=== PATIENT | female | born 1975 | race Caucasian/White ===

== ENCOUNTER 2020-10-11 14:45 | Emergency (ER) | payer MEDICARE, MEDICAID, SELFPAY ==
--- NOTE | 2020-10-11 07:31 | ECG_ITS ---
Test Reason : CHEST PAIN Blood Pressure : / mmHG Vent. Rate : 072 BPM Atrial Rate : 072 BPM P-R Int : 132 ms QRS Dur : 086 ms QT Int : 380 ms P-R-T Axes : 055 070 024 degrees QTc Int : 416 ms Normal sinus rhythm RSR' or QR pattern in V1 suggests right ventricular conduction delay Otherwise normal ECG No significant changes seen Referred By: Vanessa Marie Electronically Signed By:NGA PERALES MD
[2020-10-11 14:56] VITALS: BP 105/70; BP 108/71; PULSE 77; PULSE 99; RESP 18; TEMP 36.7; O2SAT 100; O2SAT 99; BMI 26.6
[2020-10-11 15:44] VITALS: BP 105/64; PULSE 87; RESP 18; TEMP 36.8; O2SAT 96
--- NOTE | 2020-10-11 16:03 | ED_ITS ---
HPI - Chest Pain General Chief Complaint: Chest Pain Stated Complaint: chest pain Time Seen by Provider: 10/11/20 16:02 Source: patient Mode of arrival: ambulatory Limitations: no limitations History of Present Illness MD complaint: chest pain and other (L arm tingling and weakness) Onset (ago): hour(s) (started at 940AM today) Timing of current episode: constant Prior episodes: No Onset: during rest Pain location: left chest Pain radiation: left arm Severity: moderate Quality: aching and heaviness Relieving factors: nothing Exacerbating factors: nothing Associated symptoms: other (L arm weak and tingling at the same time) Treatment prior to arrival: other (went to [facility] and referred here) Related Data Home Medications Medication Instructions Recorded Confirmed ibuprofen 800 mg tablet 800 mg PO TID 09/27/20 09/27/20 ondansetron 4 mg disintegrating 4 mg PO DAILY tab 09/27/20 09/27/20 tablet sumatriptan succinate 50 mg tablet 50 mg PO Q2-4H PRN 09/27/20 09/27/20 tizanidine 4 mg capsule 4 mg PO BID PRN 09/27/20 09/27/20 Previous Rx's Medication Instructions Recorded esomeprazole magnesium 20 mg 20 mg PO DAILY 90 Days #90 cap 09/27/20 capsule,delayed release gabapentin 100 mg capsule 200 mg PO BEDTIME 30 Days #60 cap 09/27/20 cyclobenzaprine 10 mg PO TID PRN #14 tab 10/11/20 Allergies Allergy/AdvReac Type Severity Reaction Status Date / Time hydrocodone [HYDROCODONE] Allergy Unknown SEVERE Verified 10/11/20 14:56 HEADACHE oxycodone [OXYCODONE] Allergy Unknown SEVERE Verified 10/11/20 14:56 HEADACHE latex [LATEX] AdvReac Mild RASH Verified 10/11/20 14:56 morphine [MORPHINE] AdvReac Unknown HEADACHES Verified 10/11/20 14:56 Latex with powder Allergy Unknown Unknown Uncoded 09/27/20 10:18 Review of Systems Review of Systems: Constitutional : No Weight loss, No Fever, No Chills ENT/Mouth : No sore throat, No Rhinorrhea Eyes: No Eye Pain, No Swelling Cardiovascular : pos Chest Pain, no SOB, no Dyspnea on Exertion, No Orthopnea, No Edema, No Palpitations Respiratory : No Cough, No Sputum Gastrointestinal : no Nausea, No Vomiting, No Diarrhea, No abdominal Pain, No Hematochezia, No Melena Genitourinary : No Dysuria, No Urinary Frequency Musculoskeletal : No joint pain, No Myalgias, No Joint Swelling Skin : No Skin Lesions, No rash Neuro : pos Weakness, pos Numbness, No Dizziness, No Headache Psych : No Anxiety/Panic, No Depression Heme/Lymph: No Bruising, No Lymphadenopathy Endocrine : No Polyuria, No Polydipsia All other systems reviewed and are negative [facility] Past Medical History Attestation statement: The following information was validated with the patient. Medical History Anxiety and depression Asthma Cervical neck pain with evidence of disc disease Constipation Endometriosis Iliotibial band syndrome affecting left lower leg Left fibular fracture Left tibial fracture Lumbago Migraines Right ovarian cyst Surgical History History of bunionectomy History of section History of eye surgery History of fracture of leg History of oophorectomy, unilateral History of surgery History of tendonitis Hx of cholecystectomy Family History Family History Father No problems noted. Mother No problems noted. Brother No problems noted. Brother No problems noted. Sister No problems noted. Maternal Grandfather No problems noted. Maternal Grandmother No problems noted. Paternal Grandfather No problems noted. Paternal Grandmother No problems noted. Daughter No problems noted. Son No problems noted. Social History Social History Alcohol intake: never Smoking Status: Never smoker Use of substances other than those prescribed or required for medical reasons: No Advance Directives: No Advance Directives Information Provided: Yes Physical Exam Vital Signs: Vital Signs: Last Vital Signs Temp 98.2 F 10/11/20 19:59 Pulse 100 10/11/20 19:59 Resp 12 10/11/20 19:59 BP 116/64 10/11/20 19:59 Pulse Ox 100 10/11/20 19:59 Body Mass Index 26.6 Appearance: Alert. Oriented X3. No acute distress. Eyes: Pupils equal, round and reactive to light. ENT: Pharynx normal. Neck: Normal inspection. Neck supple. CVS: Normal heart rate and rhythm. Pulses normal. Respiratory: No respiratory distress. Breath sounds normal. Abdomen: Soft and nontender. Skin: Skin warm and dry. Normal skin color. Normal skin turgor. Extremities: No lower extremity edema. No calf ttp Neuro: Oriented X 3. LUE 4/5. No sensory deficit. NIH Stroke Scale Internal: Initial- Upon Arrival Time: 16:05 Level of Consciousness: Alert Best Gaze: Normal Visual: No visual loss Facial Palsy: Normal Motor Arm (Right): No drift Motor Arm (Left): Drift Motor Leg (Right): No drift Motor Leg (Left): No drift Limb Ataxia: Absent Sensory: Normal Best Language: No aphasia Dysarthia: Normal Extinction and Inattention: No abnormality Course Course Course Narrative: no acute findings given complaint could be pain related but does have some weakness in LUE at this time MRI ordered to r/o stroke, LUE seems stronger at this time on repeat exam LUE equal c/o pain in L shoulder area - likely pain related negative MRI stable for DC at this time MDM - Chest Pain MDM Narrative Medical decision making narrative: 45 yo female with no sig PMH here with L sided chest pain and L arm weakness and numbness since 940AM - the patient comes in with delayed presentation she does have 4+/5 weakness in LUE will need labs, ddimer, CTA of chest for dissection and CTA of head/neck given LUE weakness, dispo per results and findings. Lab Data Result diagrams: 10/11/20 16:00 10/11/20 16:00 Labs: Lab Results 10/11/20 10/11/20 10/11/20 Range/Units 16:00 16:00 16:00 WBC 5.7 (4.8-10.8) X10*3/uL RBC 4.63 (4.20-5.50) X10*6/uL Hgb 13.7 (12.0-16.0) g/dl Hct 41.2 (37-47) % MCV 89.0 (80-98) fL MCH 29.6 (27.0-33.0) pg MCHC 33.3 (31.0-35.0) g/dl RDW 13.7 (11.0-16.0) % Plt Count 283 (160-400) X10*3/uL MPV 9.5 (9.4-12.3) fL Immature Gran % (Auto) 0.3 (0.0-0.4) % Neut % (Auto) 57.7 (45-73) % Lymph % (Auto) 32.6 (20-40) % [place] % (Auto) 6.8 (2-11) % Eos % (Auto) 1.6 (0-4) % Baso % (Auto) 1.0 (0-2) % Lymph # (Auto) 1.9 (1.2-4.9) X10*3/uL [place] # (Auto) 0.4 (0.1-1.2) X10*3/uL Eos # (Auto) 0.1 (0.0-0.4) X10*3/uL Baso # (Auto) 0.1 (0.0-0.2) X10*3/uL Abs Immat Gran (auto) 0.02 (0.00-0.03) X10*3/uL Absolute Neuts (auto) 3.3 (2.0-8.3) X10*3/uL Absolute Nucleated RBC 0.000 (0.0-0.012) X10*3/uL Nucleated RBC % (auto) 0.0 (0.0-0.2) /100WBC PT 10.7 L (10.8-13.0) SEC INR 0.9 (0.9-1.1) APTT 32.6 (24.1-38.0) SEC D-Dimer < 200 NG/ML Sodium 139 (135-145) mmol/L Potassium 3.9 (3.3-5.1) mmol/l Chloride 105 (96-108) mmol/L Carbon Dioxide 27 (22-29) mmol/L Anion Gap 11 L (12-20) BUN 11 (9-16) mg/dL Creatinine 0.81 (0.5-1.4) mg/dL Estim Creat Clear Calc 87.5 Estimated GFR > 60 Random Glucose 102 (60-115) mg/dL Calcium 8.9 (8.4-10.2) mg/dL Magnesium 2.0 (1.6-2.6) mg/dL Total Bilirubin 0.3 (0.0-1.0) mg/dL Direct Bilirubin < 0.2 (0.0-0.5) mg/dL AST 20 (5-31) U/L ALT 33 H (0-31) U/L Alkaline Phosphatase 50 (39-117) U/L Troponin I High Sens (<3.5-17.0) ng/L Total Protein 6.7 (6.5-8.0) g/dL Albumin 4.0 (3.5-5.0) g/dL 10/11/20 10/11/20 Range/Units 16:00 16:00 WBC (4.8-10.8) X10*3/uL RBC (4.20-5.50) X10*6/uL Hgb (12.0-16.0) g/dl Hct (37-47) % MCV (80-98) fL MCH (27.0-33.0) pg MCHC (31.0-35.0) g/dl RDW (11.0-16.0) % Plt Count (160-400) X10*3/uL MPV (9.4-12.3) fL Immature Gran % (Auto) (0.0-0.4) % Neut % (Auto) (45-73) % Lymph % (Auto) (20-40) % [place] % (Auto) (2-11) % Eos % (Auto) (0-4) % Baso % (Auto) (0-2) % Lymph # (Auto) (1.2-4.9) X10*3/uL [place] # (Auto) (0.1-1.2) X10*3/uL Eos # (Auto) (0.0-0.4) X10*3/uL Baso # (Auto) (0.0-0.2) X10*3/uL Abs Immat Gran (auto) (0.00-0.03) X10*3/uL Absolute Neuts (auto) (2.0-8.3) X10*3/uL Absolute Nucleated RBC (0.0-0.012) X10*3/uL Nucleated RBC % (auto) (0.0-0.2) /100WBC PT Cancelled (10.8-13.0) SEC INR Cancelled (0.9-1.1) APTT Cancelled (24.1-38.0) SEC D-Dimer NG/ML Sodium (135-145) mmol/L Potassium (3.3-5.1) mmol/l Chloride (96-108) mmol/L Carbon Dioxide (22-29) mmol/L Anion Gap (12-20) BUN (9-16) mg/dL Creatinine (0.5-1.4) mg/dL Estim Creat Clear Calc Estimated GFR Random Glucose (60-115) mg/dL Calcium (8.4-10.2) mg/dL Magnesium (1.6-2.6) mg/dL Total Bilirubin (0.0-1.0) mg/dL Direct Bilirubin (0.0-0.5) mg/dL AST (5-31) U/L ALT (0-31) U/L Alkaline Phosphatase (39-117) U/L Troponin I High Sens < 3.5 (<3.5-17.0) ng/L Total Protein (6.5-8.0) g/dL Albumin (3.5-5.0) g/dL ECG Data ECG #1: Attestation: I personally reviewed and interpreted this ECG as follows: ECG interpretation date: 10/11/20 ECG interpretation time: 16:12 Interpretation: Rate: 72 Rhythm: NSR [place]: normal Normal P waves. Normal VON. Normal QRS complex. ST T wave : normal qTC: normal prior studies: no acute ischemia The study has been interpreted contemporaneously by me. . Discharge Plan Discharge Clinical Impression: Arm paresthesia, left, Chest pain Patient Disposition: Home, Self-Care Instructions: Chest Pain (ED), Paresthesia (ED) Additional Instructions: return to ED for any worsening symptoms or concerns MRI report: No acute intracranial abnormality. No infarct, hemorrhage, or mass is seen. 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 Prescriptions: New cyclobenzaprine 10 mg tablet 10 mg PO TID PRN (Reason: muscle spasm) Qty: 14 RF: 0 No Action ibuprofen 800 mg tablet 800 mg PO TID RF: 0 tizanidine 4 mg capsule 4 mg PO BID PRNRF: 0 ondansetron 4 mg tablet,disintegrating 4 mg PO DAILY RF: 0 sumatriptan succinate 50 mg tablet 50 mg PO Q2-4H PRNRF: 0 gabapentin 100 mg capsule 200 mg PO BEDTIME 30 Days Qty: 60 RF: 0 esomeprazole magnesium 20 mg capsule,delayed release(DR/EC) 20 mg PO DAILY 90 Days Qty: 90 RF: 0 Referrals: Ameya Enamorado FNP-BC [Primary Care Provider] - 2 days Interventions: ED Discharge Assessment Last Done: 10/11/20 20:17 Discharge Date/Time: 10/11/20 20:20
--- NOTE | 2020-10-11 16:07 | CT_ITS ---
EXAMINATION: CT ANGIOGRAM NECK WITH CONTRAST CT ANGIOGRAM BRAIN WITH CONTRAST CLINICAL INFORMATION: Left-sided upper extremity weakness and chest pain. COMPARISON: Brain MRI 03/29/2016. TECHNIQUE: An initial noncontrast head CT was performed. Test bolus sequences followed by intravenous administration 100 mL of Omnipaque 350. Helical imaging was performed in the axial plane from the thoracic inlet to the skull vertex. Delayed postcontrast imaging of the head was also performed. The data was processed at the hyperbaric technologist workstation for generation of MIP sequences. Angled MIPs and volume rendered reformatted images were also generated at an offline 3D workstation. Stenoses are assessed in accordance with NASCET criteria unless otherwise indicated. This CT examination was performed using dose optimization techniques as appropriate, variously including the following: *Automated exposure control *Adjustment of mA and/or kV according to patient size (this includes techniques or standardized protocols for targeted exams where dose is matched to indication/reason for exam; i.e. extremities or head) *Use of iterative reconstruction technique DLP: 2242 mGy-cm FINDINGS: Head CT: There is no intracranial hemorrhage, extra-axial collection, mass effect, or territorial infarction. The ventricles are normal in size and configuration without evidence of hydrocephalus. On the delayed postcontrast images no enhancing mass is seen. The dural venous sinuses demonstrate normal opacification. 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 There is chronic deformity of the left zygoma. There is fixation hardware along the left zygomaticofrontal suture and left zygomaticomaxillary buttress. Neck CTA: The aortic arch is patent. The great vessel origins are patent. The bilateral common and internal carotid arteries are patent the bilateral vertebral arteries are codominant and patent. Head CTA: No proximal vessel occlusion is seen within the intracranial arterial circulation. There is tortuosity and ectasia of the A3 RASHIDA segments with associated vascular calcifications but without high-grade narrowing. The MCAs appear normal and symmetric. The bilateral vertebral arteries and basilar artery are patent. The plant safety engineer are patent. No definite aneurysm is seen. Non-vascular findings: No consolidation is seen within the upper lungs. The spine is intact. No significant neck adenopathy is seen. CT/CT angio head neck IMPRESSION: CT head: No intracranial hemorrhage or large acute infarction. 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 CTA neck: No stenosis in the major arteries of the neck. CTA head: No large vessel occlusion or high-grade stenosis within the intracranial circulation.
[2020-10-11] MEDS: 0.9 % Sodium Chloride 1,000 ML 999 ML IVCONT (16:22)
[2020-10-11 16:39] LABS: MANUAL DIFF FLAG NO
[2020-10-11 16:47] LABS: Basophils Absolute Auto 0.1 X10*3/uL (0.0-0.2); Eosinophils Absolute Auto 0.1 X10*3/uL (0.0-0.4); Eosinophils Percent Auto 1.6 % (0-4); Hematocrit 41.2 % (37-47); Hemoglobin 13.7 g/dl (12.0-16.0); Imm Gran Abs Auto 0.02 X10*3/uL (0.00-0.03); Imm Gran Pct Auto 0.3 % (0.0-0.4); Lymphocytes Absolute Auto 1.9 X10*3/uL (1.2-4.9); Lymphocytes Percent Auto 32.6 % (20-40); Mean Corpuscular HGB Conc 33.3 g/dl (31.0-35.0); Mean Corpuscular Hemoglobin 29.6 pg (27.0-33.0); Mean Platelet Volume 9.5 fL (9.4-12.3); Monocytes Absolute Auto 0.4 X10*3/uL (0.1-1.2); Monocytes Percent Auto 6.8 % (2-11); Neutrophils Absolute Auto 3.3 X10*3/uL (2.0-8.3); Neutrophils Percent Auto 57.7 % (45-73); Platelet Count 283 X10*3/uL (160-400); Red Blood Count 4.63 X10*6/uL (4.20-5.50); Red Cell Distribution Width 13.7 % (11.0-16.0); White Blood Count 5.7 X10*3/uL (4.8-10.8)
[2020-10-11 16:53] LABS: INTERNATIONAL NORM RATIO 0.9 (0.9-1.1); Prothrombin Time 10.7 SEC (10.8-13.0)
[2020-10-11 16:56] LABS: Partial Thromboplastin Time 32.6 SEC (24.1-38.0)
[2020-10-11 17:02] LABS: D Dimer < 200 NG/ML
[2020-10-11 17:08] LABS: Alanine Aminotransferase 33 U/L (0-31); Alkaline Phosphatase 50 U/L (39-117); Anion Gap 11 (12-20); Aspartate Amino Transferase 20 U/L (5-31); Bilirubin Direct < 0.2 mg/dL (0.0-0.5); Bilirubin Total 0.3 mg/dL (0.0-1.0); Blood Urea Nitrogen 11 mg/dL (9-16); Calcium 8.9 mg/dL (8.4-10.2); Carbon Dioxide 27 mmol/L (22-29); Chloride 105 mmol/L (96-108); Creatinine Clr Calc Pharmacy 87.5; Estimated Glomerular Filt Rate > 60; Glucose Random 102 mg/dL (60-115); Potassium 3.9 mmol/l (3.3-5.1); Sodium 139 mmol/L (135-145); Total Protein 6.7 g/dL (6.5-8.0)
[2020-10-11 17:10] LABS: Troponin-I High Sensitivity < 3.5 ng/L (<3.5-17.0)
--- NOTE | 2020-10-11 17:27 | XR_ITS ---
EXAMINATION: XR CHEST CLINICAL INFORMATION: Pain COMPARISON: 02/11/2015 TECHNIQUE: Frontal view of the chest was obtained. FINDINGS: Mild interstitial prominence, new from prior study. No pleural effusion. No focal consolidation. Normal heart size. There is an exostosis from the lateral aspect of the right humeral neck XR/XR chest 1V IMPRESSION: New mild interstitial prominence. This could be technical or due to bronchovascular crowding but bronchitis, interstitial pneumonitis or pulmonary vascular congestion could give this appearance in the appropriate clinical setting.
[2020-10-11 17:41] VITALS: BP 113/65; PULSE 82; RESP 14; TEMP 37.1; O2SAT 96
[2020-10-11] MEDS: iohexoL 350 MG/ML 100 ML INFUS..BTL IV (17:42)
--- NOTE | 2020-10-11 18:38 | MR_ITS ---
EXAMINATION: MR BRAIN WITHOUT CONTRAST CLINICAL INFORMATION: Left upper extremity weakness and numbness. COMPARISON: Head CTA 10/11/2020. Brain MRI 03/29/2016. TECHNIQUE: Multiplanar, multisequence imaging of the brain was performed without intravenous contrast. FINDINGS: There is no acute infarct, hemorrhage, mass, or extra-axial fluid collection. There is redemonstration of dysplasia of the cortex along the parasagittal right frontal lobe as seen on the prior MRI from 2015. Ectasia of the adjacent RASHIDA branches is again noted. The ventricles are normal in size and configuration without evidence of hydrocephalus. The major arterial flow voids are preserved at the skull base. The orbital contents appear normal. MR/MR head/brain wo con IMPRESSION: No acute intracranial abnormality. No infarct, hemorrhage, or mass is seen. 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
[2020-10-11] MEDS: LORazepam 2 MG/ML VIAL 1 MG IVPUSH (19:00)
--- NOTE | 2020-10-11 19:02 | PC.NURSE ---
medicated with ativan to tolerate MRI. calm at this time
[2020-10-11 19:54] VITALS: BP 116/64; PULSE 85; RESP 14; TEMP 36.8
[2020-10-11 19:59] VITALS: BP 116/64; PULSE 100; RESP 12; TEMP 36.8; O2SAT 100
== END 2020-10-11 20:20 | disposition home or self-care (01) ==
PROVIDERS: Emergency Provider Emergency Medicine; PCP Nurse Practitioner Family
DX: R07.9 Chest pain, unspecified (principal); M79.602 Pain in left arm; R20.2 Paresthesia of skin; R53.1 Weakness; Z79.899 Other long term (current) drug therapy
CPT/HCPCS: 36415; 70496; 70498; 70551; 71045; 80048; 80076; 83735; 84484; 85025; 85379; 85610; 85730; 93005; 96361; 96374; 99284; 99285; J2060; Q9967

== ENCOUNTER 2021-03-13 15:58 | Outpatient (REF) | payer MEDICARE, MEDICAID, SELFPAY ==
--- NOTE | ~2021-03-13 | XR_ITS ---
EXAMINATION: XR HIP, LEFT CLINICAL INFORMATION: Left hip pain COMPARISON: Bilateral hip x-rays September 02, 2015 TECHNIQUE: Two views of the left hip. FINDINGS: Visualized portion of the proximal left femur demonstrate no fracture. Femoral head is well-seated within the acetabulum. Left femoral acetabular joint space is well-maintained. Small osteophyte of the superolateral acetabulum. Vascular calcifications of the pelvis. XR/XR hip LT min 2V IMPRESSION: Minimal degenerative changes of the left hip.
== END 2021-03-13 15:59 | disposition home or self-care (01) ==
LOC: HO.HMGCX 15:58
PROVIDERS: PCP Nurse Practitioner Family; Visit Provider Nurse Practitioner Family
DX: M25.552 Pain in left hip (principal)
CPT/HCPCS: 73502

== ENCOUNTER 2021-04-06 14:00 | Outpatient (RCR) | payer MEDICARE, MEDICAID, SELFPAY ==
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
--- NOTE | 2021-05-04 08:32 | MHC.PT.DC ---
[facility] [place] Office [place] Office [place] Office [address] Figu[address] [facility] [phone] F: [phone] F: [phone] F: [phone] F: [phone] Physical Therapy Discharge Report Diagnosis: L hip pain Date of Surgery: Date of Evaluation: 03/28/21 Date of Discharge: 05/04/21 Treatments to Date: 3 Cancellations to Date: 3 No Shows to Date: 1 Discharge Status: Visit Non-compliance Discharge Summary: D/c secondary to noncompliance with scheduling policy. Electronically signed by: Soraya Ortez PT Please sign and return to therapist. Thank you for your referral.
== END 2021-05-04 08:33 | disposition home or self-care (01) ==
LOC: HO.PTCHIC 14:00
PROVIDERS: PCP Nurse Practitioner Family; Visit Provider Nurse Practitioner Family
DX: M25.552 Pain in left hip (principal)
CPT/HCPCS: 97110; 97140; 97162

== ENCOUNTER 2021-05-02 11:24 | Outpatient (REF) | payer MEDICARE, MEDICAID, SELFPAY ==
--- NOTE | ~2021-05-02 | US_ITS ---
EXAMINATION: US SOFT TISSUE NECK CLINICAL INFORMATION: Localized swelling, mass and lump, trunk. COMPARISON: None TECHNIQUE: Ultrasound of the left clavicle and left posterior neck to superior left shoulder soft tissues is performed with high-frequency barrios-scale imaging and color Doppler. FINDINGS: Imaging through the area between the left posterior neck, left shoulder and left clavicle there is no visible mass or lymph node seen. A normal lymph node is seen in left posterior neck. No abnormal vascularity. US/US soft tiss head and/or neck IMPRESSION: No abnormality visualized in area between the left posterior neck and shoulder area.
== END 2021-05-02 11:25 | disposition home or self-care (01) ==
LOC: HO.US 11:24
PROVIDERS: PCP Nurse Practitioner Family; Visit Provider Nurse Practitioner Family
DX: R22.2 Localized swelling, mass and lump, trunk (principal)
CPT/HCPCS: 76536

== ENCOUNTER 2021-05-04 12:43 | Outpatient (REF) | payer MEDICARE, MEDICAID, SELFPAY ==
--- NOTE | ~2021-05-04 | XR_ITS ---
EXAMINATION: XR clavicle LT, XR shoulder LT min 2V CLINICAL INFORMATION: Left shoulder pain. COMPARISON: None. TECHNIQUE: Left clavicle 2 views. Left shoulder 3 views. FINDINGS: LEFT CLAVICLE: No fracture, malalignment or other acute abnormality is seen. Minimal degenerative changes are noted at the acromioclavicular joint. Alignment is normal. LEFT SHOULDER: No fracture, malalignment or other abnormality. No abnormal soft tissue calcification. No abnormality of the upper left chest is demonstrated. XR/XR shoulder LT min 2V IMPRESSION: Minimal degenerative changes left acromioclavicular joint. No acute abnormality.
--- NOTE | ~2021-05-04 | XR_ITS ---
EXAMINATION: XR clavicle LT, XR shoulder LT min 2V CLINICAL INFORMATION: Left shoulder pain. COMPARISON: None. TECHNIQUE: Left clavicle 2 views. Left shoulder 3 views. FINDINGS: LEFT CLAVICLE: No fracture, malalignment or other acute abnormality is seen. Minimal degenerative changes are noted at the acromioclavicular joint. Alignment is normal. LEFT SHOULDER: No fracture, malalignment or other abnormality. No abnormal soft tissue calcification. No abnormality of the upper left chest is demonstrated. XR/XR clavicle LT IMPRESSION: Minimal degenerative changes left acromioclavicular joint. No acute abnormality.
== END 2021-05-04 12:44 | disposition home or self-care (01) ==
LOC: HO.HMGCLDS 12:43
PROVIDERS: PCP Nurse Practitioner Family; Visit Provider Nurse Practitioner Family
DX: M25.512 Pain in left shoulder (principal); M89.8X1 Other specified disorders of bone, shoulder
CPT/HCPCS: 73000; 73030

== ENCOUNTER 2022-02-04 23:55 | Emergency (ER) | payer MEDICARE, MEDICAID, SELFPAY ==
[2022-02-05 00:16] VITALS: BP 114/76; PULSE 92; RESP 16; TEMP 36.8; O2SAT 98; BMI 28.3
--- NOTE | 2022-02-05 01:11 | ED_ITS ---
HPI - Allergic Reaction General Chief complaint: Eye Problems Stated complaint: Eye pain/swelling Time Seen by Provider: 02/05/22 00:55 Source: patient Mode of arrival: ambulatory Limitations: no limitations History of Present Illness MD complaint: other (rash itching to R eye and L forearm) Onset (ago): day(s) (yesterday) Exposure: unknown Symptoms: rash, itching and facial swelling Severity: mild Treatment prior to arrival: benadryl Previous Allergic Reaction History: other (to poison mari and sumac) Related Data Home Medications Medication Instructions Recorded Confirmed medroxyprogesterone 150 mg/mL 150 mg IM [id number] 11/29/20 01/11/22 intramuscular suspension duloxetine 30 mg capsule,delayed 30 mg PO DAILY 07/04/21 01/11/22 release hydroxyzine HCl 50 mg tablet 50 mg PO BID 07/04/21 01/11/22 venlafaxine 75 mg capsule,extended 75 mg PO DAILY 07/04/21 01/11/22 release 24 hr Previous Rx's Medication Instructions Recorded esomeprazole magnesium 20 mg 20 mg PO DAILY 90 Days #90 cap 09/27/20 capsule,delayed release cyclobenzaprine 10 mg tablet 10 mg PO BEDTIME PRN 30 Days #30 04/25/21 tab sumatriptan succinate 50 mg tablet 50 mg PO Q2-4H PRN 30 Days #14 tab 08/16/21 diclofenac sodium 75 mg 75 mg PO BID PRN 30 Days #60 tab 01/07/22 tablet,delayed release gabapentin 100 mg capsule 100 mg PO .COMPLEX 30 Days #300 cap 01/13/22 prednisone 20 mg tablet 40 mg PO DAILY 4 Days #8 tab 02/05/22 Allergies Allergy/AdvReac Type Severity Reaction Status Date / Time hydrocodone [HYDROCODONE] Allergy Unknown SEVERE Verified 02/05/22 00:21 HEADACHE oxycodone [OXYCODONE] Allergy Unknown SEVERE Verified 02/05/22 00:21 HEADACHE latex [LATEX] AdvReac Mild RASH Verified 02/05/22 00:21 morphine [MORPHINE] AdvReac Unknown HEADACHES Verified 02/05/22 00:21 Review of Systems Review of Systems: Constitutional : No Fever, No Chills ENT/Mouth : positive oral swelling, No Hoarseness, No Swallowing Difficulty Eyes: No Eye Pain, No Swelling, No Redness Cardiovascular : No Chest Pain, No SOB Respiratory : No Cough, No Sputum, No Wheezing, No Smoke Exposure, No Dyspnea Gastrointestinal : No Nausea, No Vomiting, No Diarrhea, No abdominal Pain Genitourinary : No Dysuria, No Urinary Frequency, No Hematuria Musculoskeletal : No joint pain, No Myalgias, No Joint Swelling Skin : No Skin Lesions, positive rash [facility] Past Medical History Attestation statement: The following information was validated with the patient. Medical History Anxiety and depression Asthma Cervical neck pain with evidence of disc disease Constipation Endometriosis Iliotibial band syndrome affecting left lower leg Left fibular fracture Left tibial fracture Lumbago Migraines Right ovarian cyst Surgical History History of bunionectomy History of section History of eye surgery History of fracture of leg History of oophorectomy, unilateral History of surgery History of tendonitis Hx of cholecystectomy Family History Family History Father No problems noted. Mother No problems noted. Brother No problems noted. Brother No problems noted. Sister No problems noted. Maternal Grandfather No problems noted. Maternal Grandmother No problems noted. Paternal Grandfather No problems noted. Paternal Grandmother No problems noted. Daughter No problems noted. Son No problems noted. Social History Social History Housing: House Alcohol intake: never Patient Tobacco Use Status: Never used Tobacco e-Cigarette/Vaping Use: Never Used Second Hand Smoke Exposure: No Advance Directives: No Patient : No service: No Current occupational status: disabled Physical Exam ED Vital Signs: Vital Signs - 24 hr 02/05/22 00:16 Temperature 98.3 F Pulse Rate 92 Respiratory Rate 16 Blood Pressure 114/76 Pulse Oximetry 98 BMI result Body Mass Index 28.3 Appearance: Alert. Oriented X3. No acute distress. Eyes: Pupils equal, round and reactive to light. R eye slight puffiness no erythema boggy right periorbital area eye itself is normal ENT: Pharynx normal. Neck: Normal inspection. Neck supple. CVS: Normal heart rate and rhythm. Pulses normal. Respiratory: No respiratory distress. Abdomen: Soft and nontender. Skin: Skin warm and dry. Normal skin color. Extremities: No lower extremity edema. L forearm anterior pruritic area noted red raised bumps no signs of infection Neuro: Oriented X 3. No motor deficit. No sensory deficit. MDM - Allergic Reaction MDM Narrative Medical decision making narrative: 46 yo female no sig PMH here with R eye mild allergic reaction of periorbital a christina no eye involvement no vision changes and L forearm contact dermatitis no signs of infection, benadryl and prednisone - OTC eye drops, stable for DC Discharge Plan Discharge Clinical Impression: Contact dermatitis Qualifiers: Contact dermatitis type: allergic Contact dermatitis trigger: unspecified trigger Qualified Code(s): L23.9 - Allergic contact dermatitis, unspecified cause Patient Disposition: Home, Self-Care Instructions: Contact Dermatitis (ED) Additional Instructions: return to ED for any worsening symptoms or concerns over the counter anti histamine drops will help with eye irritation Prescriptions: New prednisone 20 mg tablet 40 mg PO DAILY 4 Days Qty: 8 0RF No Action sumatriptan succinate 50 mg tablet 50 mg PO Q2-4H PRN (Reason: migraine headache) 30 Days Qty: 14 8RF Rx Instructions: do not exceed 4 doses per 24 hrs diclofenac sodium 75 mg tablet,delayed release (DR/EC) 75 mg PO BID PRN (Reason: pain) 30 Days Qty: 60 0RF gabapentin 100 mg capsule 100 mg PO .COMPLEX 30 Days Qty: 300 1RF Rx Instructions: 100 mg PO 4 tabs in am, 6 tabs at night; 4 tabs in the am, and 6 tabs at night duloxetine 30 mg capsule,delayed release(DR/EC) 30 mg PO DAILY 0RF hydroxyzine HCl 50 mg tablet 50 mg PO BID 0RF venlafaxine 75 mg capsule,extended release 24hr 75 mg PO DAILY 0RF esomeprazole magnesium 20 mg capsule,delayed release(DR/EC) 20 mg PO DAILY 90 Days Qty: 90 0RF medroxyprogesterone 150 mg/mL suspension 150 mg IM [id number] 0RF cyclobenzaprine 10 mg tablet 10 mg PO BEDTIME PRN (Reason: muscle spasm) 30 Days Qty: 30 0RF Stand Alone Forms: Work/School Release
[2022-02-05] MEDS: diphenhydrAMINE HCL 25 MG TABLET PO (01:16)
[2022-02-05] MEDS: predniSONE 20 MG TABLET 60 MG PO (01:16)
== END 2022-02-05 01:22 | disposition home or self-care (01) ==
PROVIDERS: Emergency Provider Emergency Medicine; PCP Nurse Practitioner Family
DX: L23.9 Allergic contact dermatitis, unspecified cause (principal); L29.9 Pruritus, unspecified
CPT/HCPCS: 99283; Q0163

== ENCOUNTER 2022-02-22 10:00 | Observation (INO) | payer MEDICARE, MEDICAID, SELFPAY ==
[2022-02-22] VITALS (8 sets, daily range): BP systolic 99–126; BP diastolic 67–79; PULSE 72–100; RESP 12–18; TEMP 36.4–36.9; O2SAT 95–100; BMI 28.6
--- NOTE | ~2022-02-22 | CT_ITS ---
EXAMINATION: CT ABDOMEN AND PELVIS WITH CONTRAST CLINICAL INFORMATION: Diarrhea. Right lower quadrant tenderness. Rule out appendicitis. COMPARISON: CT from 08/18/2010 TECHNIQUE: Multidetector volumetric images were obtained from the superior aspect of the liver through the pubic symphysis following administration 85 mL of Omnipaque 350 intravenous contrast. Sagittal and coronal reformatted images were obtained on the technologist's workstation. Oral contrast: No This CT examination was performed using dose optimization techniques as appropriate, variously including the following: *Automated exposure control *Adjustment of mA and/or kV according to patient size (this includes techniques or standardized protocols for targeted exams where dose is matched to indication/reason for exam; i.e. extremities or head) *Use of iterative reconstruction technique DLP: 623 mGy-cm FINDINGS: LUNG BASES: The visualized lung bases are unremarkable. LIVER, GALLBLADDER, AND BILIARY TREE: The liver is normal in size, shape, and attenuation. No focal hepatic lesion or biliary ductal dilatation is present. Cholecystectomy. PANCREAS: Unremarkable. SPLEEN: Unremarkable. ADRENAL GLANDS: Unremarkable. KIDNEYS AND URETERS: The kidneys are normal in size, shape, and attenuation. No hydronephrosis, hydroureter, or calculi seen. No perinephric stranding. BLADDER: Unremarkable. GASTROINTESTINAL TRACT: The stomach is unremarkable. Normal caliber small bowel. No obstruction. Normal appendix. No colonic wall thickening or inflammatory change. No free air or free fluid. ABDOMINAL WALL: No significant hernia is appreciated. LYMPH NODES: Normal. VASCULAR: Unremarkable. PELVIC VISCERA: The uterus and adnexa are unremarkable. OSSEOUS STRUCTURES: No acute or suspicious osseous abnormality. CT/CT abdomen pelvis w con IMPRESSION: No acute findings of the abdomen or pelvis. Normal appendix. No inflammatory changes. Fleischner guidelines were followed.
[2022-02-22 10:52] LABS: MANUAL DIFF FLAG NO
[2022-02-22 10:58] LABS: Basophils Percent Auto 0.2 % (0-2); Eosinophils Absolute Auto 0.2 X10*3/uL (0.0-0.4); Eosinophils Percent Auto 2.5 % (0-4); Hematocrit 49.3 % (37.0-47.0); Hemoglobin 16.2 g/dl (12.0-16.0); Imm Gran Abs Auto 0.02 X10*3/uL (0.00-0.03); Imm Gran Pct Auto 0.3 % (0.0-0.4); Lymphocytes Percent Auto 16.4 % (20-40); Mean Corpuscular HGB Conc 32.9 g/dl (31.0-35.0); Mean Corpuscular Hemoglobin 28.4 pg (27.0-33.0); Mean Corpuscular Volume 86.5 fL (80.0-98.0); Mean Platelet Volume 8.6 fL (9.4-12.3); Monocytes Absolute Auto 0.6 X10*3/uL (0.1-1.2); Monocytes Percent Auto 9.3 % (2-11); Neutrophils Absolute Auto 4.2 x10*3/uL (2.0-8.3); Neutrophils Percent Auto 71.3 % (45-73); Platelet Count 272 X10*3/uL (160-400); Red Cell Distribution Width 14.9 % (11.0-16.0); White Blood Count 5.9 X10*3/uL (4.8-10.8)
[2022-02-22 11:07] LABS: Anion Gap 12 (12-20); Blood Urea Nitrogen 14 mg/dL (9-16); Calcium 9.6 mg/dL (8.4-10.2); Carbon Dioxide 26 mmol/L (22-29); Chloride 105 mmol/L (96-108); Creatinine Clr Calc Pharmacy 71.8; Estimated Glomerular Filt Rate 59; Glucose Random 96 mg/dL (60-115); Potassium 4.5 mmol/L (3.3-5.1); Sodium 138 mmol/L (135-145)
--- NOTE | 2022-02-22 12:14 | ED.ABDPAIN ---
HPI - Abdominal Pain General Chief Complaint: Abdominal Pain Stated Complaint: abd pain diarrhea Time Seen by Provider: 02/22/22 11:39 Source: patient Mode of arrival: ambulatory Limitations: no limitations History of Present Illness HPI narrative: 46-year-old female who presents emergency department for evaluation of abdominal pain, nausea and diarrhea. The patient states that 5 days prior to evaluation she developed cramping in her stomach area. She states this that occurred 1-2 hours after she ate food. She points to her lower abdominal area when asked to localize his pain. She states that 2 days prior to coming to the emergency department she developed diarrhea. She states that the diarrhea is dark and watery with no blood in it. She has greater than 10 episodes of diarrhea per day. She is also complaining of abdominal pain. She points to her lower abdomen when asked to localize the pain. The pain is intermittent and is exacerbated by eating and by diarrheal stools. She states that the pain is 10/10. She denied fever. She did have shaking chills. She denied rhinorrhea, sore throat, cough, chest pain, shortness of breath, myalgias or arthralgias. The patient states she had poison sumac to her left arm and did take a short course of prednisone recently. She has not been on antibiotics. She has not traveled out of the country. 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 Related Data Home Medications Medication Instructions Recorded Confirmed medroxyprogesterone 150 mg/mL 150 mg IM [id number] 11/29/20 01/11/22 intramuscular suspension duloxetine 30 mg capsule,delayed 30 mg PO DAILY 07/04/21 01/11/22 release hydroxyzine HCl 50 mg tablet 50 mg PO BID 07/04/21 01/11/22 venlafaxine 75 mg capsule,extended 75 mg PO DAILY 07/04/21 01/11/22 release 24 hr Previous Rx's Medication Instructions Recorded esomeprazole magnesium 20 mg 20 mg PO DAILY 90 Days #90 cap 09/27/20 capsule,delayed release cyclobenzaprine 10 mg tablet 10 mg PO BEDTIME PRN 30 Days #30 04/25/21 tab sumatriptan succinate 50 mg tablet 50 mg PO Q2-4H PRN 30 Days #14 tab 08/16/21 diclofenac sodium 75 mg 75 mg PO BID PRN 30 Days #60 tab 01/07/22 tablet,delayed release gabapentin 100 mg capsule 100 mg PO .COMPLEX 30 Days #300 cap 01/13/22 prednisone 20 mg tablet 40 mg PO DAILY 4 Days #8 tab 02/05/22 prednisone 10 mg tablet 40 mg PO DAILY 4 Days #40 tab 02/10/22 Allergies Allergy/AdvReac Type Severity Reaction Status Date / Time hydrocodone [HYDROCODONE] Allergy Unknown SEVERE Verified 02/10/22 09:19 HEADACHE oxycodone [OXYCODONE] Allergy Unknown SEVERE Verified 02/10/22 09:19 HEADACHE latex [LATEX] AdvReac Mild RASH Verified 02/10/22 09:19 morphine [MORPHINE] AdvReac Unknown HEADACHES Verified 02/10/22 09:19 Review of Systems Review of Systems Yes all other systems are reviewed and are negative [facility] Past Medical History [facility] Narrative: Past medical history: GERD. Past surgical history: Cholecystectomy, left leg fracture with ORIF. Social history: She denies tobacco use. She occasionally drinks alcohol. She denies drug use. Medical History Anxiety and depression Asthma Cervical neck pain with evidence of disc disease Constipation Endometriosis Iliotibial band syndrome affecting left lower leg Left fibular fracture Left tibial fracture Lumbago Migraines Right ovarian cyst Surgical History History of bunionectomy History of section History of eye surgery History of fracture of leg History of oophorectomy, unilateral History of surgery History of tendonitis Hx of cholecystectomy Family History Family History Father No problems noted. Mother No problems noted. Brother No problems noted. Brother No problems noted. Sister No problems noted. Maternal Grandfather No problems noted. Maternal Grandmother No problems noted. Paternal Grandfather No problems noted. Paternal Grandmother No problems noted. Daughter No problems noted. Son No problems noted. Social History Social History Housing: House Alcohol intake: never Patient Tobacco Use Status: Never used Tobacco e-Cigarette/Vaping Use: Never Used Second Hand Smoke Exposure: No Use of substances other than those prescribed or required for medical reasons: No Advance Directives: No Advance Directives Information Provided: No Patient : No service: No Current occupational status: disabled Physical Exam ED Vital Signs: Vital Signs - 24 hr 02/22/22 10:10 02/22/22 12:55 02/22/22 15:04 Temperature 97.6 F 98.1 F Pulse Rate 100 80 83 Respiratory Rate 16 18 16 Blood Pressure 113/77 118/70 115/74 Pulse Oximetry 98 100 100 02/22/22 17:03 Temperature 98.2 F Pulse Rate Respiratory Rate 16 Blood Pressure 99/72 Pulse Oximetry BMI result Body Mass Index 28.6 Const General: cooperative and no acute distress Orientation/consciousness: oriented to person and oriented to place Limitations: no limitations HENMT Head: Yes normal to inspection, Yes normocephalic and Yes atraumatic Ears: external ears normal General nose exam: Normal external nose present Face and sinus: Yes normal facial exam Mouth: Normal oral and palatal mucosa present Throat: Yes posterior oropharynx normal Eyes General: appearance normal, both eyes and all related structures Pupils: Equal, round and reactive pupils present Neck Neck: Yes normal visual inspection, Yes no lymphadenopathy, Yes trachea midline and Yes supple Chest Chest palpation & inspection: normal inspection of the chest and normal palpation of entire chest wall Resp Effort & Inspection: normal respiratory effort and able to speak in complete sentences Auscultation: clear to auscultation bilaterally Cardio Rate: regular rate Rhythm: regular rhythm Heart sounds: S1 normal heart sound present, S2 normal heart sound present and no murmurs GI Inspection: Yes normal to inspection Palpation (GI): Soft to palpation, Tenderness to palpation present (GI) in the RLQ (Moderate to severe) and no guarding Auscultation: normal bowel sounds General: Yes no CVA tenderness Back/Spine/Pelvis Back: no CVA tenderness Skin General skin exam: no rashes or lesions noted Neuro General: oriented to person and oriented to place Cranial nerves: Yes CN's II-XII intact bilaterally and Yes Equal, round and reactive pupils present Cognition (Neuro): normal cognition Motor exam (neuro): 5/5 motor strength present throughout Extrem General: Yes normal to inspection Psych Appearance: grossly normal Speech and movement: Normal speech and movement present Affect: normal affect Attitude: cooperative Thought process: Normal thought process present Thought content: Normal thought content present Course Course Course Narrative: 46-year-old female who presents emergency department for evaluation of 5 days of abdominal pain worse several hours after the food and diarrhea times 2 days. The patient did complete a short course prednisone for poison sumac. Vital signs were normal. Physical examination did reveal very localize right lower quadrant tenderness. Differential includes but is not limited to viral illness, gastroenteritis, appendicitis, colitis, C diff colitis. Laboratory evaluation was ordered including CBC, BMP, liver panel, lipase, COVID-19, influenza, C diff, stool culture. Patient was ordered to get normal saline x2 L, Toradol 15 mg IV and Zofran 4 mg IV. 1703: Laboratory evaluation: CBC was normal. CMP was normal. Lipase was not elevated. Beta hCG was below detectable limits. C diff was negative. Radiology evaluation: CT scan of the abdomen pelvis with IV contrast, radiology reading did not reveal any clear cause for the patient's right lower quadrant pain. The appendix is visualized and appears normal. The patient did not get any relief with the above treatment. She was ordered to get Dilaudid 0.5 mg IV with Benadryl 25 mg IV. The patient continues to have very localize right lower quadrant tenderness and concerned that she may have appendicitis. I did discuss presentation with the covering surgeon, Dr. Knight he recommended admission to the hospitalist service and he will consult for surgery. I will discuss the presentation with the covering hospitalist. 1727: I did discuss patient's presentation over tiger text with the covering hospitalist, Dr. Acosta. Patient will be admitted to the hospital service for further treatment. MDM - Abdominal Pain Lab Data Result diagrams: 02/22/22 10:48 02/22/22 10:48 Labs: Lab Results 02/22/22 02/22/22 02/22/22 Range/Units 10:48 10:48 12:43 WBC 5.9 (4.8-10.8) X10*3/uL RBC 5.70 H (4.20-5.50) X10*6/uL Hgb 16.2 H (12.0-16.0) g/dl Hct 49.3 H (37.0-47.0) % MCV 86.5 (80.0-98.0) fL MCH 28.4 (27.0-33.0) pg MCHC 32.9 (31.0-35.0) g/dl RDW 14.9 (11.0-16.0) % Plt Count 272 (160-400) X10*3/uL MPV 8.6 L (9.4-12.3) fL Immature Gran % (Auto) 0.3 (0.0-0.4) % Neut % (Auto) 71.3 (45-73) % Lymph % (Auto) 16.4 L (20-40) % [place] % (Auto) 9.3 (2-11) % Eos % (Auto) 2.5 (0-4) % Baso % (Auto) 0.2 (0-2) % Lymph # (Auto) 1.0 L (1.2-4.9) X10*3/uL [place] # (Auto) 0.6 (0.1-1.2) X10*3/uL Eos # (Auto) 0.2 (0.0-0.4) X10*3/uL Baso # (Auto) 0.0 (0.0-0.2) X10*3/uL Abs Immat Gran (auto) 0.02 (0.00-0.03) X10*3/uL Absolute Neuts (auto) 4.2 (2.0-8.3) x10*3/uL Absolute Nucleated RBC 0.000 (0.0-0.012) X10*3/uL Nucleated RBC % (auto) 0.0 (0.0-0.2) /100WBC Sodium 138 (135-145) mmol/L Potassium 4.5 (3.3-5.1) mmol/L Chloride 105 (96-108) mmol/L Carbon Dioxide 26 (22-29) mmol/L Anion Gap 12 (12-20) BUN 14 (9-16) mg/dL Creatinine 1.01 (0.5-1.4) mg/dL Estim Creat Clear Calc 71.8 Estimated GFR 59 Random Glucose 96 (60-115) mg/dL Calcium 9.6 D (8.4-10.2) mg/dL Total Bilirubin 0.6 (0.0-1.0) mg/dL Direct Bilirubin 0.2 (0.0-0.5) mg/dL AST 19 (5-31) U/L ALT 36 H (0-31) U/L Alkaline Phosphatase 46 (39-117) U/L Total Protein 7.1 (6.5-8.0) g/dL Albumin 4.2 (3.5-5.0) g/dL Lipase 24 (8-78) U/L Beta HCG, Quant < 2 mIU/mL C. difficile Tox B Gene NEGATIVE (Negative) Discharge Plan Discharge Prescriptions: No Action sumatriptan succinate 50 mg tablet 50 mg PO Q2-4H PRN (Reason: migraine headache) 30 Days Qty: 14 8RF Rx Instructions: do not exceed 4 doses per 24 hrs diclofenac sodium 75 mg tablet,delayed release (DR/EC) 75 mg PO BID PRN (Reason: pain) 30 Days Qty: 60 0RF gabapentin 100 mg capsule 100 mg PO .COMPLEX 30 Days Qty: 300 1RF Rx Instructions: 100 mg PO 4 tabs in am, 6 tabs at night; 4 tabs in the am, and 6 tabs at night prednisone 20 mg tablet 40 mg PO DAILY 4 Days Qty: 8 0RF duloxetine 30 mg capsule,delayed release(DR/EC) 30 mg PO DAILY 0RF hydroxyzine HCl 50 mg tablet 50 mg PO BID 0RF venlafaxine 75 mg capsule,extended release 24hr 75 mg PO DAILY 0RF esomeprazole magnesium 20 mg capsule,delayed release(DR/EC) 20 mg PO DAILY 90 Days Qty: 90 0RF medroxyprogesterone 150 mg/mL suspension 150 mg IM [id number] 0RF cyclobenzaprine 10 mg tablet 10 mg PO BEDTIME PRN (Reason: muscle spasm) 30 Days Qty: 30 0RF prednisone 10 mg tablet 40 mg PO DAILY 4 Days Qty: 40 0RF Rx Instructions: then take 3 tabs for 4 days, then 2 tabs for 4 days, then 1 tab for 4 days.
[2022-02-22 12:34] LABS: Alanine Aminotransferase 36 U/L (0-31); Albumin Level 4.2 g/dL (3.5-5.0); Alkaline Phosphatase 46 U/L (39-117); Aspartate Amino Transferase 19 U/L (5-31); Bilirubin Direct 0.2 mg/dL (0.0-0.5); Bilirubin Total 0.6 mg/dL (0.0-1.0); Lipase 24 U/L (8-78); Total Protein 7.1 g/dL (6.5-8.0)
[2022-02-22 12:53] LABS: HCG Quantitative < 2 mIU/mL
[2022-02-22] MEDS: iohexoL 350 MG/ML 100 ML INFUS..BTL IV (13:32)
[2022-02-22] MEDS: 0.9 % Sodium Chloride 1,000 ML 999 ML IV ×2 (14:00→15:10)
[2022-02-22 14:06] LABS: CDiff Gene PCR NEGATIVE (Negative)
[2022-02-22] MEDS: Ketorolac Tromethamine 15 MG/ML VIAL IVPUSH (15:08)
[2022-02-22] MEDS: ondansetron HCL 4 MG/2 ML VIAL IVPUSH ×2 (15:09→22:02)
[2022-02-22] MEDS: HYDROmorphone HCl 0.5 MG/0.5 ML SYRINGE IVPUSH (16:59)
[2022-02-22] MEDS: diphenhydrAMINE HCL 50 MG/ML VIAL 25 MG IVPUSH (16:59)
--- NOTE | 2022-02-22 17:10 | PC.NURSE ---
pt reports 9/10 rlq pain, no guarding or facial grimace noted. pt skin wpd, plan of care is to admit pt overnight for obs and follow up with surgery in am pt is aware and agreeble to plan of care. in fluids infusing.
[2022-02-22 18:12] LABS: Influenza A Negative (Negative); Influenza B2 Negative (Negative)
[2022-02-22 18:18] LABS: COVID-19 Test Negative (Negative)
--- NOTE | 2022-02-22 18:33 | P.HPHOSP_ITS ---
History of Present Illness Date of Service: 02/22/22 Attending physician on admission: Mitzi Acosta Chief Complaint: abd pain 46-year F -abdominal pain, nausea and diarrhea.? The patient states that 5 days prior to evaluation she developed cramping in her stomach area.? She states this that occurred 1-2 hours after she ate food.? She points to her lower abdominal area when asked to localize his pain.? She states that 2 days prior to coming to the emergency department she developed diarrhea and watery with no blood in it.? patient says had 10 episodes of diarrhea per day.? She is also complaining of abdominal pain.? She points to her lower abdomen when asked to localize the pain.? The pain is intermittent and is exacerbated by eating and by diarrheal stools.? She denied rhinorrhea, sore throat, cough, chest pain, shortness of breath, myalgias or arthralgias. The patient states she had poison sumac to her left arm and did take a short course of prednisone recently.? She has not been on antibiotics.? She has not traveled out of the country.? 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 Review of Systems Review of Systems: As above. [facility] Medical History Anxiety and depression Asthma Cervical neck pain with evidence of disc disease Constipation Endometriosis Iliotibial band syndrome affecting left lower leg Left fibular fracture Left tibial fracture Lumbago Migraines Right ovarian cyst Family History Father No problems noted. Mother No problems noted. Brother No problems noted. Brother No problems noted. Sister No problems noted. Maternal Grandfather No problems noted. Maternal Grandmother No problems noted. Paternal Grandfather No problems noted. Paternal Grandmother No problems noted. Daughter No problems noted. Son No problems noted. Pertinent family history: Denies any family history of any abdominal disease or any bowel disease Surgical History History of bunionectomy History of section History of eye surgery History of fracture of leg History of oophorectomy, unilateral History of surgery History of tendonitis Hx of cholecystectomy Social History Housing: House Alcohol intake: never Patient Tobacco Use Status: Never used Tobacco e-Cigarette/Vaping Use: Never Used Second Hand Smoke Exposure: No Use of substances other than those prescribed or required for medical reasons: No Advance Directives: No Advance Directives Information Provided: No Patient : No service: No Current occupational status: disabled Meds Allergies Allergy/AdvReac Type Severity Reaction Status Date / Time hydrocodone [HYDROCODONE] Allergy Unknown SEVERE Verified 02/10/22 09:19 HEADACHE oxycodone [OXYCODONE] Allergy Unknown SEVERE Verified 02/10/22 09:19 HEADACHE latex [LATEX] AdvReac Mild RASH Verified 02/10/22 09:19 morphine [MORPHINE] AdvReac Unknown HEADACHES Verified 02/10/22 09:19 Active Medications: Current Medications Diphenhydramine HCl (Diphenhydramine Hcl 25 Mg Tablet) 25 mg PO Q6H PRN PRN Reason: Pain, Mild (Pain Scale 1-3) Hydromorphone HCl (Hydromorphone Hcl 1 Mg/Ml Syringe) 0.5 mg SUBCUT Q4H PRN; Protocol PRN Reason: Pain, Severe (Pain Scale 7-10) Sodium Chloride (Ns) 1,000 mls @ 100 mls/hr IVCONT .Q10H L[facility] Ondansetron HCl (Ondansetron Hcl 4 Mg/2 Ml Vial) 4 mg IVPUSH Q6H L[facility]ON[facility] Sodium Chloride (0.9 % Sodium Chloride Flush 3 Ml Syringe) 3 ml IVFLUSH QSHIFT L[facility] Home Medications Medication Instructions Recorded Confirmed Last Taken Type medroxyprogesterone 150 mg/mL 150 mg IM [id number] 11/29/20 01/11/22 Unknown History intramuscular suspension duloxetine 30 mg capsule,delayed 30 mg PO DAILY 07/04/21 01/11/22 Unknown History release hydroxyzine HCl 50 mg tablet 50 mg PO BID 07/04/21 01/11/22 Unknown History venlafaxine 75 mg capsule,extended 75 mg PO DAILY 07/04/21 01/11/22 Unknown History release 24 hr Physical Exam Vital Signs and Narrative: Vital Signs: Last Vital Signs Temp 98.4 F 02/22/22 17:37 Pulse 72 02/22/22 17:37 Resp 12 02/22/22 17:37 BP 112/79 02/22/22 17:37 Pulse Ox 99 02/22/22 17:37 BMI result Body Mass Index 28.6 Appearance: Alert.? Oriented X3.? not in distress.? Eyes: Pupils equal, round and reactive to light.? Sclera nonicteric.? ENT: Pharynx normal.? Moist mucous membranes. cvs: rrr, [id number] , no murmur res: clear to auscultation ,no rhonchii or wheezing abd: no rebound or guarding ,mild tenderness right lower abd just below navel,bs present. ext pulses present , no cyanosis . neuro: axo3 , nonfocal. Results Labs CBC and Chem 7: 02/22/22 10:48 02/22/22 10:48 Labs: Laboratory Results - last 24 hr 02/22/22 02/22/22 02/22/22 10:48 10:48 12:43 MCV 86.5 MCH 28.4 MCHC 32.9 RDW 14.9 Plt Count 272 MPV 8.6 L Immature Gran % (Auto) 0.3 Neut % (Auto) 71.3 Lymph % (Auto) 16.4 L [place] % (Auto) 9.3 Eos % (Auto) 2.5 Baso % (Auto) 0.2 Lymph # (Auto) 1.0 L [place] # (Auto) 0.6 Eos # (Auto) 0.2 Baso # (Auto) 0.0 Abs Immat Gran (auto) 0.02 Absolute Neuts (auto) 4.2 Absolute Nucleated RBC 0.000 Nucleated RBC % (auto) 0.0 Anion Gap 12 Estim Creat Clear Calc 71.8 Estimated GFR 59 Random Glucose 96 Calcium 9.6 D Total Bilirubin 0.6 Direct Bilirubin 0.2 AST 19 ALT 36 H Alkaline Phosphatase 46 Total Protein 7.1 Albumin 4.2 Lipase 24 Beta HCG, Quant < 2 C. difficile Tox B Gene NEGATIVE COVID-19 ([facility]) COVID-19 Clin Com Influenza Type A (AILYN) Influenza Type B (AILYN) Influenza A & B Note 02/22/22 02/22/22 17:37 17:37 MCV MCH MCHC RDW Plt Count MPV Immature Gran % (Auto) Neut % (Auto) Lymph % (Auto) [place] % (Auto) Eos % (Auto) Baso % (Auto) Lymph # (Auto) [place] # (Auto) Eos # (Auto) Baso # (Auto) Abs Immat Gran (auto) Absolute Neuts (auto) Absolute Nucleated RBC Nucleated RBC % (auto) Anion Gap Estim Creat Clear Calc Estimated GFR Random Glucose Calcium Total Bilirubin Direct Bilirubin AST ALT Alkaline Phosphatase Total Protein Albumin Lipase Beta HCG, Quant C. difficile Tox B Gene COVID-19 ([facility]) Negative COVID-19 Clin Com See Note Influenza Type A (AILYN) Negative Influenza Type B (AILYN) Negative Influenza A & B Note See Note Imaging Radiologist's Impressions: Impressions Abdomen/Pelvis CT 02/22/22 13:50 IMPRESSION: No acute findings of the abdomen or pelvis. Normal appendix. No inflammatory changes. Fleischner guidelines were followed. Assessment and Plan (1) Abdominal pain: Qualifiers: Abdominal location: right lower quadrant Qualified Code(s): R10.31 - Right lower quadrant pain Status: Acute (2) Diarrhea: Qualifiers: Diarrhea type: unspecified type Qualified Code(s): R19.7 - Diarrhea, unspecified Status: Acute Plan 46 y/o F came with abdominal pain and diarrhea. 1. Abdominal pain/ diarrhea: Unclear etiology-differential include colitis, viral gastroenteritis, appendicitis CT abdomen seems fine Case discussed by ED physician with surgery-recommended admit medicine for IV hydration, iv pain med, antibiotics and surgery will see the patient in a.m.. Use IV Dilaudid with Benadryl if needed for pain. Stool studies 2. gerd: Continue home medication 3. migrane : Continue sumatriptan. 4. asthma: Continue home medications. 5. ch leg pain: Continue home medication dvt prophylax: SubQ Lovenox. Med reconciliation still pending Above management discussed with the patient in detail and she understand and and in agreement with the above plan, time spent 70 minute, patient full code. Quality Stroke Does the patient have a stroke diagnosis?: No VTE Prior VTE?: No VTE Risk Level:: Medical - moderate - high VTE Device Contraindication: N/A - Device Ordered VTE Drug Contraindication: N/A - Med Ordered
--- NOTE | 2022-02-22 19:08 | PC.NURSE ---
pt reports pain is 2/10, pt is tolerating ice chips and resting comfortably pt has been evaluated by hospitalist for admission orders
--- NOTE | 2022-02-22 19:25 | PHA.MEDREC ---
Pharmacy Consult ? Medication Reconciliation Pharmacy has completed the medication reconciliation. PATIENT ON CYMBALTA NOW
[2022-02-22] MEDS: Piperacillin Sodium/Tazobactam 3.375 GM in 0.9 % Sodium Chloride 50 ML IV (20:05)
[2022-02-22] MEDS: 0.9 % Sodium Chloride 1,000 ML 100 ML IVCONT (20:05)
[2022-02-22] MEDS: HYDROmorphone HCl 1 MG/ML SYRINGE 0.5 MG SUBCUT (22:02)
[2022-02-22] MEDS: diphenhydrAMINE HCL 25 MG TABLET PO (23:02)
--- NOTE | 2022-02-22 23:09 | PC.NURSE ---
Pt reports itchy hands, benedryl given, airway patent, resp normal, Pt speaking full sentences, no hives or rash, this RN continues to monitor
[2022-02-23 00:16] VITALS: BP 108/63; PULSE 73; RESP 16; TEMP 37.1; O2SAT 96
[2022-02-23] MEDS: 0.9 % Sodium Chloride 1,000 ML 100 ML IVCONT ×2 (00:45→13:02)
[2022-02-23] MEDS: Piperacillin Sodium/Tazobactam 3.375 GM in 0.9 % Sodium Chloride 50 ML IV ×3 (00:45→12:51)
[2022-02-23] MEDS: 0.9 % Sodium Chloride Flush 3 ML SYRINGE IVFLUSH (00:47)
--- NOTE | 2022-02-23 01:03 | PC.NURSE ---
Pt sleeping, chest rise and fall, Pt on playground monitor, Pt needs met, call light in reach, this rn continues to monitor.
[2022-02-23] MEDS: HYDROmorphone HCl 1 MG/ML SYRINGE 0.5 MG SUBCUT (05:53)
[2022-02-23 06:00] VITALS: BP 124/74; PULSE 68; RESP 16; TEMP 36.3; O2SAT 98
[2022-02-23 06:26] LABS: Hematocrit 42.4 % (37.0-47.0); Hemoglobin 13.7 g/dl (12.0-16.0); Mean Corpuscular HGB Conc 32.3 g/dl (31.0-35.0); Mean Corpuscular Hemoglobin 28.2 pg (27.0-33.0); Mean Corpuscular Volume 87.2 fL (80.0-98.0); Mean Platelet Volume 8.7 fL (9.4-12.3); Platelet Count 202 X10*3/uL (160-400); Red Blood Count 4.86 X10*6/uL (4.20-5.50); Red Cell Distribution Width 14.6 % (11.0-16.0); White Blood Count 4.3 X10*3/uL (4.8-10.8)
[2022-02-23 06:46] LABS: Anion Gap 11 (12-20); Blood Urea Nitrogen 10 mg/dL (9-16); Calcium 8.3 mg/dL (8.4-10.2); Carbon Dioxide 22 mmol/L (22-29); Chloride 108 mmol/L (96-108); Creatinine Clr Calc Pharmacy 89.6; Estimated Glomerular Filt Rate > 60; Glucose Random 85 mg/dL (60-115); Potassium 4.4 mmol/L (3.3-5.1); Sodium 137 mmol/L (135-145)
--- NOTE | 2022-02-23 08:20 | P.CONGS_ITS ---
History of Present Illness Consult details Consult date: 02/23/22 Narrative: 46-year-old female referred for anal pain. She was admitted last night because of lower abdominal pain. Her current illness actually started about 4 days ago when she developed a lot of cramping in her lower abdomen. He says she has had severe diarrhea for about 2 days prior to her admission. She says she would have very water stools for 10 times a day with severe lower abdominal cramping. She denies any significant vomiting She denies any fever or chills. She denies seeing blood in her stools. She says she had been unable to have anything substantial by mouth because of her diarrhea and cramping. She therefore came to the emergency room yesterday. She currently states that her abdominal pain has recurred practically resolved. She denies any diarrhea this morning. She says she feels much better this morning. Review of Systems Constitutional: Constitutional: Denies chills and Denies fever(s) Cardiovascular: Cardiovascular: Denies chest pain, Denies dyspnea and Denies dyspnea on exertion Respiratory: Respiratory: Denies cough, Denies dyspnea and Denies dyspnea on exertion Gastrointestinal: Gastrointestinal: Denies hematochezia and Denies change in bowel habits Genitourinary: Genitourinary: Denies hematuria Musculoskeletal: Musculoskeletal: Denies back pain and Denies limited range of motion Neurologic: Denies focal weakness and Denies convulsions Psychiatric: Psychiatric: Denies depression and Denies mood swings PMFSH Past Medical History Medical History Anxiety and depression Asthma Cervical neck pain with evidence of disc disease Constipation Endometriosis Iliotibial band syndrome affecting left lower leg Left fibular fracture Left tibial fracture Lumbago Migraines Right ovarian cyst Family History Family History Father No problems noted. Mother No problems noted. Brother No problems noted. Brother No problems noted. Sister No problems noted. Maternal Grandfather No problems noted. Maternal Grandmother No problems noted. Paternal Grandfather No problems noted. Paternal Grandmother No problems noted. Daughter No problems noted. Son No problems noted. Surgical History Surgical History History of bunionectomy History of section History of eye surgery History of fracture of leg History of oophorectomy, unilateral History of surgery History of tendonitis Hx of cholecystectomy Social History Social History Housing: House Alcohol intake: never Patient Tobacco Use Status: Never used Tobacco e-Cigarette/Vaping Use: Never Used Second Hand Smoke Exposure: No Use of substances other than those prescribed or required for medical reasons: No Advance Directives: No Advance Directives Information Provided: No Patient : No service: No Current occupational status: disabled Meds Allergies Allergy/AdvReac Type Severity Reaction Status Date / Time hydrocodone [HYDROCODONE] Allergy Unknown SEVERE Verified 02/10/22 09:19 HEADACHE oxycodone [OXYCODONE] Allergy Unknown SEVERE Verified 02/10/22 09:19 HEADACHE latex [LATEX] AdvReac Mild RASH Verified 02/10/22 09:19 morphine [MORPHINE] AdvReac Unknown HEADACHES Verified 02/10/22 09:19 Active Medications: Current Medications Diphenhydramine HCl (Diphenhydramine Hcl 25 Mg Tablet) 25 mg PO Q6H PRN PRN Reason: Pain, Mild (Pain Scale 1-3) Last Admin: 02/22/22 23:02 Dose: 25 mg Documented by: Enoxaparin Sodium (Enoxaparin Sodium 40 Mg/0.4 Ml Syringe) 40 mg SUBCUT DAILY LASHONDA Hydromorphone HCl (Hydromorphone Hcl 1 Mg/Ml Syringe) 0.5 mg SUBCUT Q4H PRN; Protocol PRN Reason: Pain, Severe (Pain Scale 7-10) Last Admin: 02/23/22 05:53 Dose: 0.5 mg Documented by: Sodium Chloride (Ns) 1,000 mls @ 100 mls/hr IVCONT .Q10H [facility] Last Admin: 02/23/22 00:45 Dose: 100 mls/hr Documented by: Piperacillin Sod/Tazobactam (Sod 3.375 gm/ Sodium Chloride) 50 mls @ 100 mls/hr IV Q6H [facility] Last Infusion: 02/23/22 07:03 Dose: Infused Documented by: Ondansetron HCl (Ondansetron Hcl 4 Mg/2 Ml Vial) 4 mg IVPUSH Q6H [facility] Last Admin: 02/23/22 06:04 Dose: Not Given Documented by: Pharmacy Consult (Consult Rx Perform Med Rec) 1 each MISCELLANE ONCE PRN PRN Reason: Consult order Sodium Chloride (0.9 % Sodium Chloride Flush 3 Ml Syringe) 3 ml IVFLUSH QSHIFT [facility] Last Admin: 02/23/22 07:13 Dose: Not Given Documented by: Home Medications Medication Instructions Recorded Confirmed Last Taken Type duloxetine 30 mg capsule,delayed 30 mg PO DAILY 07/04/21 02/22/22 02/20/22 History release hydroxyzine HCl 50 mg tablet 50 mg PO BID 07/04/21 02/22/22 02/20/22 History acetaminophen 500 mg tablet 500 mg PO Q6H PRN 02/22/22 02/22/22 Unknown History calcium carbonate 500 mg calcium 500 mg PO BID PRN 02/22/22 02/22/22 02/20/22 History (1,250 mg) chewable tablet gabapentin 100 mg capsule 100 mg PO DAILY 02/22/22 02/22/22 02/20/22 History gabapentin 100 mg capsule 200 mg PO BEDTIME 02/22/22 02/22/22 02/20/22 History Physical Exam Vital Signs: Vital Signs: Last Vital Signs Temp 97.4 F 02/23/22 06:00 Pulse 68 02/23/22 06:00 Resp 16 02/23/22 06:00 BP 124/74 02/23/22 06:00 Pulse Ox 98 02/23/22 06:00 BMI result Body Mass Index 28.6 Const: General: comfortable and no acute distress Orientation/consciousness: patient oriented x3 Neck: Neck: Yes no lymphadenopathy Resp: Auscultation: clear to auscultation bilaterally Cardio: Rhythm: regular rhythm GI: Other: No tenderness, no guarding, no rebound, no distension Palpation (GI): Soft to palpation and no guarding Neuro: General: patient oriented x3 Results Labs Result diagrams: 02/23/22 06:15 02/23/22 06:15 Labs: Abnormal lab results 02/22/22 02/22/22 02/23/22 Range/Units 10:48 10:48 06:15 WBC 4.3 L (4.8-10.8) X10*3/uL RBC 5.70 H (4.20-5.50) X10*6/uL Hgb 16.2 H (12.0-16.0) g/dl Hct 49.3 H (37.0-47.0) % MPV 8.6 L 8.7 L (9.4-12.3) fL Lymph % (Auto) 16.4 L (20-40) % Lymph # (Auto) 1.0 L (1.2-4.9) X10*3/uL Anion Gap (12-20) Calcium (8.4-10.2) mg/dL ALT 36 H (0-31) U/L 02/23/22 Range/Units 06:15 WBC (4.8-10.8) X10*3/uL RBC (4.20-5.50) X10*6/uL Hgb (12.0-16.0) g/dl Hct (37.0-47.0) % MPV (9.4-12.3) fL Lymph % (Auto) (20-40) % Lymph # (Auto) (1.2-4.9) X10*3/uL Anion Gap 11 L (12-20) Calcium 8.3 L D (8.4-10.2) mg/dL ALT (0-31) U/L Short CBC 02/22/22 02/23/22 Range/Units 10:48 06:15 WBC 5.9 4.3 L (4.8-10.8) X10*3/uL Hgb 16.2 H 13.7 (12.0-16.0) g/dl Hct 49.3 H 42.4 (37.0-47.0) % Plt Count 272 202 D (160-400) X10*3/uL BMP 02/22/22 02/23/22 10:48 06:15 Sodium 138 137 Potassium 4.5 4.4 Chloride 105 108 Carbon Dioxide 26 22 BUN 14 10 Creatinine 1.01 0.81 Calcium 9.6 D 8.3 L D Liver Function 02/22/22 Range/Units 10:48 Total Bilirubin 0.6 (0.0-1.0) mg/dL Direct Bilirubin 0.2 (0.0-0.5) mg/dL AST 19 (5-31) U/L ALT 36 H (0-31) U/L Alkaline Phosphatase 46 (39-117) U/L Albumin 4.2 (3.5-5.0) g/dL All other labs normal. Imaging CT scan - pelvis: report reviewed and image reviewed US - pelvic: report reviewed and image reviewed Additional studies: Laboratory Results WBC 4.3 X10*3/uL (4.8-10.8) L 02/23/22 06:15 RBC 4.86 X10*6/uL (4.20-5.50) 02/23/22 06:15 Hgb 13.7 g/dl (12.0-16.0) 02/23/22 06:15 Hct 42.4 % (37.0-47.0) 02/23/22 06:15 MCV 87.2 fL (80.0-98.0) 02/23/22 06:15 MCH 28.2 pg (27.0-33.0) 02/23/22 06:15 MCHC 32.3 g/dl (31.0-35.0) 02/23/22 06:15 RDW 14.6 % (11.0-16.0) 02/23/22 06:15 Plt Count 202 X10*3/uL (160-400) D 02/23/22 06:15 MPV 8.7 fL (9.4-12.3) L 02/23/22 06:15 Immature Gran % (Auto) 0.3 % (0.0-0.4) 02/22/22 10:48 Neut % (Auto) 71.3 % (45-73) 02/22/22 10:48 Lymph % (Auto) 16.4 % (20-40) L 02/22/22 10:48 [place] % (Auto) 9.3 % (2-11) 02/22/22 10:48 Eos % (Auto) 2.5 % (0-4) 02/22/22 10:48 Baso % (Auto) 0.2 % (0-2) 02/22/22 10:48 Lymph # (Auto) 1.0 X10*3/uL (1.2-4.9) L 02/22/22 10:48 [place] # (Auto) 0.6 X10*3/uL (0.1-1.2) 02/22/22 10:48 Eos # (Auto) 0.2 X10*3/uL (0.0-0.4) 02/22/22 10:48 Baso # (Auto) 0.0 X10*3/uL (0.0-0.2) 02/22/22 10:48 Abs Immat Gran (auto) 0.02 X10*3/uL (0.00-0.03) 02/22/22 10:48 Absolute Neuts (auto) 4.2 x10*3/uL (2.0-8.3) 02/22/22 10:48 Absolute Nucleated RBC 0.000 X10*3/uL (0.0-0.012) 02/23/22 06:15 Nucleated RBC % (auto) 0.0 /100WBC (0.0-0.2) 02/23/22 06:15 Sodium 137 mmol/L (135-145) 02/23/22 06:15 Potassium 4.4 mmol/L (3.3-5.1) 02/23/22 06:15 Chloride 108 mmol/L (96-108) 02/23/22 06:15 Carbon Dioxide 22 mmol/L (22-29) 02/23/22 06:15 Anion Gap 11 (12-20) L 02/23/22 06:15 BUN 10 mg/dL (9-16) 02/23/22 06:15 Creatinine 0.81 mg/dL (0.5-1.4) 02/23/22 06:15 Estim Creat Clear Calc 89.6 02/23/22 06:15 Estimated GFR > 60 02/23/22 06:15 Random Glucose 85 mg/dL (60-115) 02/23/22 06:15 Calcium 8.3 mg/dL (8.4-10.2) L D 02/23/22 06:15 Total Bilirubin 0.6 mg/dL (0.0-1.0) 02/22/22 10:48 Direct Bilirubin 0.2 mg/dL (0.0-0.5) 02/22/22 10:48 AST 19 U/L (5-31) 02/22/22 10:48 ALT 36 U/L (0-31) H 02/22/22 10:48 Alkaline Phosphatase 46 U/L (39-117) 02/22/22 10:48 Total Protein 7.1 g/dL (6.5-8.0) 02/22/22 10:48 Albumin 4.2 g/dL (3.5-5.0) 02/22/22 10:48 Lipase 24 U/L (8-78) 02/22/22 10:48 Beta HCG, Quant < 2 mIU/mL 02/22/22 10:48 C. difficile Tox B Gene NEGATIVE (Negative) 02/22/22 12:43 COVID-19 ([facility]) Negative (Negative) 02/22/22 17:37 COVID-19 Clin Com See Note 02/22/22 17:37 Influenza Type A (AILYN) Negative (Negative) 02/22/22 17:37 Influenza Type B (AILYN) Negative (Negative) 02/22/22 17:37 Influenza A & B Note See Note 02/22/22 17:37 Impressions Abdomen/Pelvis CT 02/22/22 13:50 IMPRESSION: No acute findings of the abdomen or pelvis. Normal appendix. No inflammatory changes. Fleischner guidelines were followed. Assessment and Plan (1) Abdominal pain: Qualifiers: Abdominal location: right lower quadrant Qualified Code(s): R10.31 - Right lower quadrant pain Status: Acute She has had severe diarrhea along with lower abdominal cramping. She feels much better this morning. She says that her symptoms have practically resolved . Overall clinical picture does not suggest acute appendicitis. I also also reviewed her CAT scan from last night and this does not show any inflammatory changes around the appendix. Likely etiology would be acute gastroenteritis. Physical exam is very benign. I recommend advancing her diet. If she continues to do well, she may build to discharge later today. I will come by later on to really examine her. She understands the plan and is comfortable with this. Procedures Date of Service Date of Service: 02/23/22
--- NOTE | 2022-02-23 08:22 | P.PNIM_ITS ---
Subjective Subjective Date of Service: 02/27/22 Interval History: abd pain/colitis Physical Exam Vital Signs: Vital Signs: Last Vital Signs Temp 97.4 F 02/23/22 06:00 Pulse 68 02/23/22 06:00 Resp 16 02/23/22 06:00 BP 124/74 02/23/22 06:00 Pulse Ox 98 02/23/22 06:00 BMI result Body Mass Index 28.6 Objective Data Active Medications Diphenhydramine HCl (Diphenhydramine Hcl 25 Mg Tablet) 25 mg PO Q6H PRN PRN Reason: Pain, Mild (Pain Scale 1-3) Last Admin: 02/22/22 23:02 Dose: 25 mg Documented by: DAGMAR Enoxaparin Sodium (Enoxaparin Sodium 40 Mg/0.4 Ml Syringe) 40 mg SUBCUT DAILY LASHONDA Hydromorphone HCl (Hydromorphone Hcl 1 Mg/Ml Syringe) 0.5 mg SUBCUT Q4H PRN; Protocol PRN Reason: Pain, Severe (Pain Scale 7-10) Last Admin: 02/23/22 05:53 Dose: 0.5 mg Documented by: DAGMAR Sodium Chloride (Ns) 1,000 mls @ 100 mls/hr IVCONT .Q10H [facility] Last Admin: 02/23/22 00:45 Dose: 100 mls/hr Documented by: DAGMAR Piperacillin Sod/Tazobactam (Sod 3.375 gm/ Sodium Chloride) 50 mls @ 100 mls/hr IV Q6H [facility] Last Infusion: 02/23/22 07:03 Dose: 0 mls/hr Documented by: ELDA Ondansetron HCl (Ondansetron Hcl 4 Mg/2 Ml Vial) 4 mg IVPUSH Q6H [facility] Last Admin: 02/23/22 06:04 Dose: Not Given Documented by: DAGMAR Non-Admin Reason: pt denied nausea Pharmacy Consult (Consult Rx Perform Med Rec) 1 each MISCELLANE ONCE PRN PRN Reason: Consult order Sodium Chloride (0.9 % Sodium Chloride Flush 3 Ml Syringe) 3 ml IVFLUSH QSHIFT [facility] Last Admin: 02/23/22 07:13 Dose: Not Given Documented by: ELDA Non-Admin Reason: IV Running Labs CBC & Chem 7: 04/08/22 06:15 02/23/22 06:15 Labs: Laboratory Results - last 24 hr 02/22/22 02/22/22 02/22/22 10:48 10:48 12:43 MCV 86.5 MCH 28.4 MCHC 32.9 RDW 14.9 Plt Count 272 MPV 8.6 L Immature Gran % (Auto) 0.3 Neut % (Auto) 71.3 Lymph % (Auto) 16.4 L [facility] % (Auto) 9.3 Eos % (Auto) 2.5 Baso % (Auto) 0.2 Lymph # (Auto) 1.0 L [facility] # (Auto) 0.6 Eos # (Auto) 0.2 Baso # (Auto) 0.0 Abs Immat Gran (auto) 0.02 Absolute Neuts (auto) 4.2 Absolute Nucleated RBC 0.000 Nucleated RBC % (auto) 0.0 Anion Gap 12 Estim Creat Clear Calc 71.8 Estimated GFR 59 Random Glucose 96 Calcium 9.6 D Total Bilirubin 0.6 Direct Bilirubin 0.2 AST 19 ALT 36 H Alkaline Phosphatase 46 Total Protein 7.1 Albumin 4.2 Lipase 24 Beta HCG, Quant < 2 C. difficile Tox B Gene NEGATIVE COVID-19 (KALIE) COVID-19 Clin Com Influenza Type A (AILYN) Influenza Type B (AILYN) Influenza A & B Note 02/22/22 02/22/22 02/23/22 17:37 17:37 06:15 MCV 87.2 MCH 28.2 MCHC 32.3 RDW 14.6 Plt Count 202 D MPV 8.7 L Immature Gran % (Auto) Neut % (Auto) Lymph % (Auto) [facility] % (Auto) Eos % (Auto) Baso % (Auto) Lymph # (Auto) [facility] # (Auto) Eos # (Auto) Baso # (Auto) Abs Immat Gran (auto) Absolute Neuts (auto) Absolute Nucleated RBC 0.000 Nucleated RBC % (auto) 0.0 Anion Gap Estim Creat Clear Calc Estimated GFR Random Glucose Calcium Total Bilirubin Direct Bilirubin AST ALT Alkaline Phosphatase Total Protein Albumin Lipase Beta HCG, Quant C. difficile Tox B Gene COVID-19 (KALIE) Negative COVID-[place] Com See Note Influenza Type A (AILYN) Negative Influenza Type B (AILYN) Negative Influenza A & B Note See Note 02/23/22 06:15 MCV MCH MCHC RDW Plt Count MPV Immature Gran % (Auto) Neut % (Auto) Lymph % (Auto) [facility] % (Auto) Eos % (Auto) Baso % (Auto) Lymph # (Auto) [facility] # (Auto) Eos # (Auto) Baso # (Auto) Abs Immat Gran (auto) Absolute Neuts (auto) Absolute Nucleated RBC Nucleated RBC % (auto) Anion Gap 11 L Estim Creat Clear Calc 89.6 Estimated GFR > 60 Random Glucose 85 Calcium 8.3 L D Total Bilirubin Direct Bilirubin AST ALT Alkaline Phosphatase Total Protein Albumin Lipase Beta HCG, Quant C. difficile Tox B Gene COVID-19 (KALIE) COVID-19 Clin Com Influenza Type A (AILYN) Influenza Type B (AILYN) Influenza A & B Note Assessment and Plan Plan 46 y/o F? came with abdominal pain and diarrhea. 1. Abdominal pain/ diarrhea:? Unclear etiology-differential include colitis, viral gastroenteritis, appendicitis CT abdomen seems fine Case discussed by ED physician with surgery-recommended admit medicine for IV hydration, iv pain med, antibiotics and surgery will see the patient in a.m.. Use IV Dilaudid with Benadryl if needed for pain. Stool studies 2. gerd:? Continue home medication 3. migrane :? Continue sumatriptan. 4. asthma:? Continue home medications. 5. ch leg pain:? Continue home medication dvt prophylax:? SubQ Lovenox. Med reconciliation still pending Quality Stroke Does the patient have a stroke diagnosis?: No VTE Prior VTE?: No VTE Risk Level:: Medical - moderate - high VTE Device Contraindication: N/A - Device Ordered VTE Drug Contraindication: N/A - Med Ordered
[2022-02-23 09:24] VITALS: BP 103/72; PULSE 72; RESP 12; TEMP 36.7; O2SAT 95
[2022-02-23] MEDS: Acetaminophen 325 MG TABLET 650 MG PO (10:00)
[2022-02-23] MEDS: Enoxaparin Sodium 40 MG/0.4 ML SYRINGE SUBCUT (10:00)
--- NOTE | 2022-02-23 11:30 | PM.DS ---
DS: Providers Provider Date of Service: 02/23/22 Date of admission: 02/22/22 18:27 Primary care physician: MARY Hayden Consults: 02/22/22 18:42 Consult to Infectious Diseases Routine Consulting Provider: Alma Rosa Burch Reason for consultation: abd pain ? colitis Has provider been notified: No 02/22/22 18:43 Consult to General Surgery Routine Consulting Provider: Skinny Qureshi Reason for consultation: ? appendicitis Has provider been notified: No DS: Diagnosis Discharge Diagnosis (1) Abdominal pain: Status: Acute DS: Summary Hospital Course Hospital Course: 46-year F? -abdominal pain, nausea and diarrhea.? The patient states that 5 days prior to evaluation she developed cramping in her stomach area.? She states this that occurred 1-2 hours after she ate food.? She points to her lower abdominal area when asked to localize his pain.? She states that 2 days prior to coming to the emergency department she developed? diarrhea ? and watery with no blood in it.? patient says had 10 episodes of diarrhea per day.? She is also complaining of abdominal pain.? She points to her lower abdomen when asked to localize the pain.? The pain is intermittent and is exacerbated by eating and by diarrheal stools.? ?She denied rhinorrhea, sore throat, cough, chest pain, shortness of breath, myalgias or arthralgias. The patient states she had poison sumac to her left arm and did take a short course of prednisone recently.? She has not been on antibiotics.? She has not traveled out of the country.? 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 Hospital course: Patient came with right-sided abdominal pain and diarrhea: Patient was started on hydration, IV antibiotics, CT abdomen was done which seems to be fine. Seen by surgery-symptoms probably related to gastroenteritis, patient symptoms resolved ,seen by ID recomended 5 days po antibiotics-going home, tolerated diet, encouraged for hydration and if any new symptoms worsening abdominal pain, fever, blood in stool she should come back to the nearest emergency room. Above management discussed with the patient in detail length she understand and in agreement with the above plan, time spent 50 minutes and 50% time spent on counseling. Significant findings: As above. Procedures performed: None. Treatment and response: As above. Complications: None. Time Spent with Patient Time attestation: Total time spent providing and/or coordinating discharge services: Discharge coordination time: Greater than 30 minutes Quality: Safe Use of Opioids Does Pt have an Active Cancer Diagnosis on the Problem List?: No Quality: Stroke Does the patient have a stroke diagnosis?: No Physical Exam Vital Signs: Vital Signs: Last Vital Signs Temp 98.1 F 02/23/22 09:24 Pulse 72 02/23/22 09:24 Resp 12 02/23/22 09:24 BP 103/72 02/23/22 09:24 Pulse Ox 95 02/23/22 09:24 BMI result Body Mass Index 28.6 Appearance: Alert.? Oriented X3.? not in distress.? Eyes: Pupils equal, round and reactive to light.? Sclera nonicteric.? ENT: Pharynx normal.? Moist mucous membranes. cvs: rrr, [id number] , no murmur res: clear to auscultation ,no rhonchii or wheezing abd: no rebound or guarding , nt ,bs present. ext pulses present , no cyanosis . neuro: axo3 , nonfocal. DS: Data Data Completed and Pending Labs on day of discharge: Laboratory Results - last 24 hr 02/22/22 02/22/22 02/22/22 10:48 12:43 17:37 WBC RBC Hgb Hct MCV MCH MCHC RDW Plt Count MPV Absolute Nucleated RBC Nucleated RBC % (auto) Sodium Potassium Chloride Carbon Dioxide Anion Gap BUN Creatinine Estim Creat Clear Calc Estimated GFR Random Glucose Calcium Total Bilirubin 0.6 Direct Bilirubin 0.2 AST 19 ALT 36 H Alkaline Phosphatase 46 Total Protein 7.1 Albumin 4.2 Lipase 24 Beta HCG, Quant < 2 C. difficile Tox B Gene NEGATIVE COVID-19 (KALIE) COVID-19 Clin Com Influenza Type A (AILYN) Negative Influenza Type B (AILYN) Negative Influenza A & B Note See Note 02/22/22 02/23/22 02/23/22 17:37 06:15 06:15 WBC 4.3 L RBC 4.86 Hgb 13.7 Hct 42.4 MCV 87.2 MCH 28.2 MCHC 32.3 RDW 14.6 Plt Count 202 D MPV 8.7 L Absolute Nucleated RBC 0.000 Nucleated RBC % (auto) 0.0 Sodium 137 Potassium 4.4 Chloride 108 Carbon Dioxide 22 Anion Gap 11 L BUN 10 Creatinine 0.81 Estim Creat Clear Calc 89.6 Estimated GFR > 60 Random Glucose 85 Calcium 8.3 L D Total Bilirubin Direct Bilirubin AST ALT Alkaline Phosphatase Total Protein Albumin Lipase Beta HCG, Quant C. difficile Tox B Gene COVID-19 (KALIE) Negative COVID-19 Clin Com See Note Influenza Type A (AILYN) Influenza Type B (AILYN) Influenza A & B Note Additional Comments Additional comments: CT/CT abdomen pelvis w con IMPRESSION: No acute findings of the abdomen or pelvis. Normal appendix. No inflammatory changes.? ? Fleischner guidelines were followed. Discharge Plan Discharge Patient Disposition: Home, Self-Care Discharge Diagnosis: Probable viral gastroenteritis Referrals: Ameya Enamorado, [facility] ASSIST[facility] [Primary Care Provider] - 1 Week Discharge Medications: New levofloxacin 500 mg Tablet 500 mg PO Q24H Qty: 4 0RF metronidazole 500 mg Tablet 500 mg PO Q12H Qty: 9 0RF ondansetron HCl 4 mg tablet 4 mg PO Q8H PRN (Reason: nausea) Qty: 10 0RF Continued sumatriptan succinate 50 mg tablet 50 mg PO Q2-4H PRN (Reason: migraine headache) 30 Days Qty: 14 8RF Rx Instructions: do not exceed 4 doses per 24 hrs gabapentin 100 mg capsule 100 mg PO DAILY 0RF gabapentin 100 mg capsule 200 mg PO BEDTIME 0RF acetaminophen 500 mg Tablet 500 mg PO Q6H PRN (Reason: HEADACHES) 0RF calcium carbonate 500 mg calcium (1,250 mg) Tablet,Chewable 500 mg PO BID PRN (Reason: Acid Reflux) 0RF duloxetine 30 mg capsule,delayed release(DR/EC) 30 mg PO DAILY 0RF hydroxyzine HCl 50 mg tablet 50 mg PO BID 0RF Discharge Orders: Discharge Order (Routine); Ordered 02/23/22 Ordered By: Mitzi Acosta Diet: advance to usual diet Activity on Discharge: As tolerated Stand Alone Forms: Patient Portal Discharge page Care Plan Goals: Patient came with right-sided abdominal pain and diarrhea: Patient was started on hydration, IV antibiotics, CT abdomen was done which seems to be fine. Seen by surgery-symptoms probably related to gastroenteritis, patient symptoms resolved ,seen by ID recomended 5 days po antibiotics-going home, tolerated diet, encouraged for hydration and if any new symptoms worsening abdominal pain, fever, blood in stool she should come back to the nearest emergency room. Above management discussed with patient in detail length she understand and in agreement with above plan. Health Concerns: As above. Plan of Treatment: Above. Assessment: As above.
--- NOTE | 2022-02-23 11:49 | MHC.CM.PN ---
Addendum entered by Kylah Zepeda 02/23/22 13:30: PT WILL DC HOME TODAY WITH NO SERVICES Original Note: PT REPORTS SHE LIVES WITH HER S/O AND IS FULLY INDEPENDENT WITH CARE SHE DENIES USE OF DME OR HOME SERVICES PT CONFIRMS HER PCP IS LAURO LOVE SHE DECLINES TO COMPLETE A HCP SHE DENIES BEING COVID-19 VACCINATED OBSERVATION NOTICE DELIVERED, COPY SENT TO [facility] CURRENT DC PLAN IS HOME WITH NO SERVICES FAMILY TO TRANSPORT
[2022-02-23 12:58] VITALS: BP 103/74; PULSE 86; RESP 16; TEMP 36.4; O2SAT 98
[2022-02-23] MEDS: metroNIDAZOLE 500 MG TABLET PO (13:52)
[2022-02-23] MEDS: levoFLOXacin 500 MG TABLET PO (13:52)
== END 2022-02-23 16:00 | disposition home or self-care (01) ==
LOC: HO.ED 11:38 → HO.EDOVER 18:43
PROVIDERS: Admitting Provider Internal Medicine; Emergency Provider Emergency Medicine Emergency Medical Services; PCP Nurse Practitioner Family; Visit Provider Internal Medicine
DX: R10.31 Right lower quadrant pain (principal); R19.7 Diarrhea, unspecified; M76.32 Iliotibial band syndrome, left leg; G43.909 Migraine, unspecified, not intractable, without status migrainosus; F41.8 Other specified anxiety disorders; Z20.822 Contact with and (suspected) exposure to COVID-19; Z90.49 Acquired absence of other specified parts of digestive tract; Z88.6 Allergy status to analgesic agent; Z91.040 Latex allergy status; Z79.899 Other long term (current) drug therapy
CPT/HCPCS: 36415; 74177; 80048; 80076; 83690; 84702; 85025; 85027; 87045; 87046; 87493; 87502; 87635; 96361; 96372; 96374; 96375; 96376; 99218; 99285; J1170; J1200; J1650; J1885; J2405; J2543; Q0163; Q9967

== ENCOUNTER 2022-04-04 11:14 | Outpatient (REF) | payer MEDICARE, MEDICAID, SELFPAY ==
--- NOTE | ~2022-04-04 | XR_ITS ---
EXAMINATION: XR CLAVICLE, LEFT CLINICAL INFORMATION: Injury COMPARISON: Previous exam April 2021 TECHNIQUE: Two views of the left clavicle. FINDINGS: Bone alignment is normal. No fracture or dislocation is seen. Joint spaces are normal. Soft tissues are normal. XR/XR clavicle LT IMPRESSION: Normal left clavicle.
== END 2022-04-04 11:15 | disposition home or self-care (01) ==
LOC: HO.HMGCX 11:14
PROVIDERS: Visit Provider Nurse Practitioner Family
DX: T14.8XXA Other injury of unspecified body region, initial encounter (principal); X58.XXXA Exposure to other specified factors, initial encounter; Y93.9 Activity, unspecified; Y92.9 Unspecified place or not applicable; Y99.8 Other external cause status
CPT/HCPCS: 73000

== ENCOUNTER → 2022-04-26 08:57 | Outpatient (BNVA) | payer MEDICARE, MEDICAID, SELFPAY | PROVIDERS: PCP Nurse Practitioner Family; Visit Provider Orthopaedic Surgery | DX: S46.812A Strain of other muscles, fascia and tendons at shoulder and upper arm level, left arm, initial encounter (principal); R26.9 Unspecified abnormalities of gait and mobility; M76.32 Iliotibial band syndrome, left leg | CPT/HCPCS: 99212 ==

== ENCOUNTER 2023-06-25 22:31 | Emergency (ER) | payer MEDICARE, MEDICAID, SELFPAY ==
[2023-06-25 22:34] VITALS: BP 112/72; PULSE 78; RESP 18; TEMP 36.6; O2SAT 98; BMI 24.1
--- NOTE | 2023-06-26 00:37 | PC.NURSE ---
pt a&o, no sob or chest pain, Dr. Marie into assess pt in triage, Reviewed discharge instructions with pt. pt verbalized understanding. Positive Cms and pedal pulses.
--- NOTE | 2023-06-26 00:38 | ED.SKABFB ---
HPI - Skin/Abscess/Foreign Bdy General Chief complaint: General Medical Stated complaint: ?Spider bite Time Seen by Provider: 06/26/23 00:34 Source: patient Mode of arrival: ambulatory Limitations: no limitations History of Present Illness MD complaint: insect bite/sting Onset (ago): day(s) (1) Tetanus up to date: yes Location: RLE Severity: mild Quality: pruritic Pain Consistency: intermittent Relieving factors: none Exacerbating factors: none Context: other (unwitnessed) Associated symptoms: itching Treatments prior to arrival: none Related Data Home Medications Medication Instructions Recorded Confirmed duloxetine 30 mg capsule,delayed 30 mg PO DAILY 07/04/21 03/21/22 release hydroxyzine HCl 50 mg tablet 50 mg PO BID 07/04/21 03/21/22 acetaminophen 500 mg tablet 500 mg PO Q6H PRN HEADACHES 02/22/22 03/21/22 calcium carbonate 500 mg calcium 500 mg PO BID PRN Acid Reflux 02/22/22 03/21/22 (1,250 mg) chewable tablet gabapentin 100 mg capsule 200 mg PO BEDTIME 02/22/22 03/21/22 Previous Rx's Medication Instructions Recorded sumatriptan succinate 50 mg tablet 50 mg PO Q2-4H PRN migraine 08/16/21 headache 30 days #14 tabs ondansetron HCl 4 mg tablet 4 mg PO Q8H PRN nausea #10 tabs 02/23/22 gabapentin 100 mg capsule 100 mg PO DAILY 30 days #30 caps 02/13/23 albuterol sulfate 90 mcg/actuation 1 inh inhalation QID PRN shortness 02/26/23 aerosol inhaler (Ventolin HFA) of breath or wheezing #8.5 grams azithromycin 250 mg tablet See Rx Instructions PO .COMPLEX #6 02/26/23 tabs amoxicillin 875 mg-potassium 1 tab PO BID #14 tabs 06/26/23 clavulanate 125 mg tablet Allergies Allergy/AdvReac Type Severity Reaction Status Date / Time hydrocodone [HYDROCODONE] Allergy Unknown SEVERE Verified 06/25/23 22:38 HEADACHE oxycodone [OXYCODONE] Allergy Unknown SEVERE Verified 06/25/23 22:38 HEADACHE latex [LATEX] AdvReac Mild RASH Verified 06/25/23 22:38 morphine [MORPHINE] AdvReac Unknown HEADACHES Verified 06/25/23 22:38 Review of Systems Review of Systems: Constitutional : No Fever, No Chills, Cardiovascular : No Chest Pain, No SOB Respiratory : No Dyspnea Gastrointestinal : No abdominal pain Musculoskeletal : No Joint Swelling Skin : No rash, positive skin lesion Neuro : No Weakness, No Numbness PMFSH Past Medical History Attestation statement: The following information was validated with the patient. Medical History Anxiety and depression Asthma Cervical neck pain with evidence of disc disease Constipation Endometriosis Iliotibial band syndrome affecting left lower leg Left fibular fracture Left tibial fracture Lumbago Migraines Right ovarian cyst Surgical History History of bunionectomy History of section History of eye surgery History of fracture of leg History of oophorectomy, unilateral History of surgery History of tendonitis Hx of cholecystectomy Family History Family History Father No problems noted. Mother No problems noted. Brother No problems noted. Brother No problems noted. Sister No problems noted. Maternal Grandfather No problems noted. Maternal Grandmother No problems noted. Paternal Grandfather No problems noted. Paternal Grandmother No problems noted. Daughter No problems noted. Son No problems noted. Social History Social History Housing: House Alcohol intake: never Patient Tobacco Use Status: Never used Tobacco e-Cigarette/Vaping Use: Never Used Second Hand Smoke Exposure: No Advance Directives: No Advance Directives Information Provided: No service: No Current occupational status: unemployed and disabled Cognitive needs: No Hearing needs: No Vision needs: No Physical Exam Vital Signs: Vital Signs: Last Vital Signs Temp 97.9 F 06/25/23 22:34 Pulse 78 06/25/23 22:34 Resp 18 06/25/23 22:34 BP 112/72 06/25/23 22:34 Pulse Ox 98 06/25/23 22:34 O2 Del Method Room Air 06/25/23 22:34 BMI result Body Mass Index 24.1 Appearance: Alert. Oriented X3. No acute distress. Eyes: Pupils equal, round and reactive to light. ENT: Pharynx normal. Neck: Normal inspection. CVS: Pulses normal. Respiratory: No respiratory distress. Skin: Skin warm and dry. Normal skin color. Extremities: No lower extremity edema. R ankle two small puncture wounds well healed - mild swelling but no warmth erythema or drainage Neuro: Oriented X 3. No motor deficit. No sensory deficit. Medical Decision Making Medical Decision Making [facility] Narrative: 48 yo female not a diabetic here with two puncture wounds suspects a spider bite on R ankle x 24 hours it is itchy no signs of infection at this time she is going on vacation tomorrow and plan will be to send out with oral antibiotics as she will not have access but she will not start them unless she has signs of infection. no signs of necrosis on exam at this time. unsure what bit her. no abscess Differential Diagnosis Differential Diagnoses: The differential diagnosis associated with the presentation includes insect bite, localized reaction External Record Review External record reviewed: Office record Prescription Management I considered prescription management with: Antibiotic Discharge Plan Discharge Clinical Impression: Spider bite Qualifiers: Encounter type: initial encounter Injury intent: accidental or unintentional Qualified Code(s): T63.301A - Toxic effect of unspecified spider venom, accidental (unintentional), initial encounter Patient Disposition: Home, Self-Care Instructions: Insect Bite or Sting (ED) Additional Instructions: take antibiotic if redness spreads you have fevers, yellow drainage, more swelling or signs of infection take probiotic while on antibiotic report to doctor if you have more than 6 loose stools while on antibiotic Prescriptions: New amoxicillin-pot clavulanate 875-125 mg tablet 1 tab PO BID Qty: 14 0RF No Action sumatriptan succinate 50 mg tablet 50 mg PO Q2-4H PRN (Reason: migraine headache) 30 Days Qty: 14 8RF Rx Instructions: do not exceed 4 doses per 24 hrs gabapentin 100 mg capsule 100 mg PO DAILY 30 Days Qty: 30 2RF gabapentin 100 mg capsule 200 mg PO BEDTIME acetaminophen 500 mg Tablet 500 mg PO Q6H PRN (Reason: HEADACHES) calcium carbonate 500 mg calcium (1,250 mg) Tablet,Chewable 500 mg PO BID PRN (Reason: Acid Reflux) ondansetron HCl 4 mg tablet 4 mg PO Q8H PRN (Reason: nausea) Qty: 10 0RF duloxetine 30 mg capsule,delayed release(DR/EC) 30 mg PO DAILY hydroxyzine HCl 50 mg tablet 50 mg PO BID azithromycin 250 mg tablet See Rx Instructions PO .COMPLEX Qty: 6 0RF Rx Instructions: take 500 mg today (day 1), then 250 mg for 4 days (days 2-5) PO albuterol sulfate [Ventolin HFA] 90 mcg/actuation HFA aerosol inhaler 1 inh inhalation QID PRN (Reason: shortness of breath or wheezing) Qty: 8.5 1RF Discharge Date/Time: 06/26/23 00:42
[2023-06-26 00:39] VITALS: RESP 20
--- OUTSIDE RECORDS SUMMARY | 2023-06-26 00:41 | XMS_ITS | Continuity of Care Document ---
Author Name Unknown Organization [facility] ter Address [address] [place] [id number]- Care Team Providers Care Exhibition Designer Name Role Phone Fei ROUSE, Ameya Blankenship Primary Care Physician [phone] Encounter [facility] Date(s): 11/20/19 - 11/20/[address] [id number]- [place] [facility] Attending Physician: Suha Monterroso NP Allergies, Adverse Reactions, Alerts Substance Reaction Severity Status NKA Active Medications MetroGel-Vaginal 0.75% gel with applicator 1 application, Vaginally, Daily at bedtime, # 70 Gm, 0 Refills, Soft Stop, Gel Start Date: 10/09/11 Stop Date: 10/14/11 Status: Ordered No Home Meds Maintenance, 10/09/11 10:22:56 Start Date: 10/09/11 Status: Ordered Problem List Condition Effective Dates Status Health Status Inform ant Dizziness - light-headed(Confirmed) 05/14/11 Active
--- OUTSIDE RECORDS SUMMARY | 2023-06-26 00:41 | XMS_ITS | Continuity of Care Document ---
Author Name Unknown Organization [facility] Address [address] [place] [id number]- Care Team Providers Care Rubber Block Layer Name Role Phone Fei ROUSE, Ameya Blankenship Primary Care Physician Encounter [facility] Date(s): 08/01/20 - 11/20/20 [facility] [address] [place] [id number]- Attending Physician: Andre ROUSE, Katherine Shankar Admitting Physician: Andre ROUSE, Katherine Shankar Allergies, Adverse Reactions, Alerts Substance Reaction Severity Status NKA Active Medications Gabapentin By Mouth, 0 Refills, Maintenance, 10/26/20 22:32:00 EST, Partial fill upon patient request if the prescription is for a schedule II opioid drug. Start Date: 10/26/20 Status: Ordered Ibuprofen Refills 0, Maintenance, 10/26/20 22:33:00 EST, Partial fill upon patient request if the prescription is for a schedule II opioid drug. Start Date: 10/26/20 Status: Ordered MetroGel-Vaginal 0.75% gel with applicator 1 application, Vaginally, Daily at bedtime, # 70 Gm, 0 Refills, Soft Stop, Gel Start Date: 10/09/11 Stop Date: 10/14/11 Status: Ordered No Home Meds Maintenance, 10/09/11 10:22:56 Start Date: 10/09/11 Status: Ordered Tylenol 325 mg oral capsule 1 capsule = 325 mg, By Mouth, Every 4 hours, PRN as needed for pain, # 90 capsule, 0 Refills, Maintenance, 10/26/20 22:33:00 EST, Capsule, Partial fill upon patient request if the prescription is fora schedule II opioid drug. Start Date: 12/9/20 Status: Ordered Problem List Condition Effective Dates Status Health Status Inform ant Dizziness - light-headed(Confirmed) 05/14/11 Active Social History Social History Type Response Smoking Status Never (less than 100 in lifetime) entered on: 10/26/20 Sex
--- OUTSIDE RECORDS SUMMARY | 2023-06-26 00:41 | XMS_ITS | Continuity of Care Document ---
Author Name Unknown Organization [facility] Address [address] [place] [id number]- Care Team Providers Care Water Resource Engineering Specialist Name Role Phone Fei ROUSE, Ameya Blankenship Primary Care Physician [phone] Encounter [facility] Date(s): 04/21/20 - 05/21/20 [facility] [address] [place] [id number]- [facility] Attending Physician: Remy Russo Admitting Physician: Remy Rsuso Referring Physician: Remy Russo Allergies, Adverse Reactions, Alerts Substance Reaction Severity [...]
--- OUTSIDE RECORDS SUMMARY | 2023-06-26 00:41 | XMS_ITS | Continuity of Care Document ---
Author Name Unknown Organization [facility] Address [address] [place] [id number]- Care Team Providers Care Auto Rental Clerk Name Role Phone Fei ROUSE, Ameya Blankenship Primary Care Physician Encounter [facility] Date(s): 07/28/20 - 08/27/20 [facility] [address] [place] [id number]- [facility] Allergies, Adverse Reactions, Alerts Substance Reaction Severity [...]
--- OUTSIDE RECORDS SUMMARY | 2023-06-26 00:41 | XMS_ITS | Continuity of Care Document ---
Author Name Unknown Organization [facility] Address [address] [place] [address]- Care Team Providers Care Network Associate Name Role Phone Fei ROUSE, Ameya Blankenship Primary Care Physician Encounter [facility] Date(s): 08/26/20 - 09/25/20 [facility] [address] [address] Attending Physician: Remy Russo Admitting Physician: Remy Russo Referring Physician: Remy Russo Allergies, Adverse Reactions, [...]
--- OUTSIDE RECORDS SUMMARY | 2023-06-26 00:41 | XMS_ITS | Continuity of Care Document ---
Author Name Unknown Organization [facility] Address [address] [place] [id number]- Care Team Providers Care Hospice Registered Nurse Name Role Phone Fei ROUSE, Ameya Blankenship Primary Care Physician Encounter [facility] Date(s): 10/21/20 - 11/20/20 [facility] [address] [id number] Attending Physician: Remy Russo Admitting Physician: Remy Russo Referring Physician: Admtr, ArGardenia Allergies, Adverse Reactions, Alerts Substance Reaction Severity [...] fora schedule II opioid drug. Start Date: 10/26/20 Status: Ordered Problem List Condition Effective Dates Status Health Status Inform ant Dizziness - light-headed(Confirmed) 05/14/11 Active Social History Social History Type Response Smoking Status Never (less than 100 in lifetime) entered on: 10/26/20 Sex
--- OUTSIDE RECORDS SUMMARY | 2023-06-26 00:41 | XMS_ITS | Continuity of Care Document ---
Author Name Unknown Organization [facility] Address [address] [place] [phone]- Care Team Providers Care Human Resources Operations Director Name Role Phone Fei ROUSE, Ameya Blankenship Primary Care Physician Encounter [facility] Date(s): 07/22/20 - 09/25/20 [facility] [address] [place] [id number] Attending Physician: Andre ROUSE, Katherine Shankar Admitting [...]
--- OUTSIDE RECORDS SUMMARY | 2023-06-26 00:41 | XMS_ITS | Continuity of Care Document ---
Author Name Unknown Organization [facility] Address [address] [place] [id number]- Care Team Providers Care Barrer And Tacker Name Role Phone Fei ROUSE, Ameya Blankenship Primary Care Physician Encounter [facility] Date(s): 02/02/20 - 03/09/[address] [address]- [facility] Attending Physician: Andre ROUSE, Katherine Shankar Admitting Physician: Andre ROUSE, Katherine Shankar Referring Physician: Andre ROUSE, Katherine Shankar Allergies, Adverse [...]
--- OUTSIDE RECORDS SUMMARY | 2023-06-26 00:41 | XMS_ITS | Continuity of Care Document ---
Author Name Unknown Organization [facility] Address [address] [place] [phone]- Care Team Providers Care Loader Engineer Name Role Phone Fei ROUSE, Ameya Blankenship Primary Care Physician Encounter [facility] Date(s): 04/21/20 - 04/28/20 [facility] [address] [place] [phone]- [facility] Attending Physician: Roxy Irizarry MD Admitting Physician: Roxy Irizarry MD Referring Physician: Roxy Irizarry MD Allergies, Adverse Reactions, Alerts Substance Reaction Severity [...]
== END 2023-06-26 00:42 | disposition home or self-care (01) ==
PROVIDERS: Emergency Provider Emergency Medicine
DX: T63.301A Toxic effect of unspecified spider venom, accidental (unintentional), initial encounter (principal); M79.661 Pain in right lower leg; Y92.9 Unspecified place or not applicable; Z79.899 Other long term (current) drug therapy
CPT/HCPCS: 99283; 99284

== ENCOUNTER 2023-08-06 11:19 | Outpatient (AMB) | payer MEDICARE, MEDICAID, SELFPAY ==
[2023-08-06 11:36] VITALS: BP 102/70; PULSE 72; O2SAT 98; BMI 29.2
--- NOTE | 2023-08-06 11:36 | MHC.PC.OV ---
Vital Signs 08/06/23 11:36 Height 5 ft 5 in Weight 175 lb 4 oz BMI 29.2 BP 102/70 Blood Pressure Location Rt brachial Position Sitting Pulse 72 Pulse Source Pulse Oximeter Pulse Oximetry (%) 98 Oxygen Delivery Method Room Air Intake Visit Reasons: Annual PE Allergies hydrocodone [HYDROCODONE] Allergy (Unknown, Verified 08/06/23 11:39) SEVERE HEADACHE oxycodone [OXYCODONE] Allergy (Unknown, Verified 08/06/23 11:39) SEVERE HEADACHE latex [LATEX] Adverse Reaction (Mild, Verified 08/06/23 11:39) RASH morphine [MORPHINE] Adverse Reaction (Unknown, Verified 08/06/23 11:39) HEADACHES Medication List - Last Reconciled 08/06/23 by CONSTANCE Sevilla acetaminophen 500 mg PO Q6H PRN albuterol sulfate 90 mcg/actuation (Ventolin HFA) 1 inh inhalation QID PRN calcium carbonate 500 mg PO BID PRN duloxetine 30 mg PO DAILY gabapentin 100 mg PO DAILY 30 days hydroxyzine HCl 50 mg PO BID ondansetron HCl 4 mg PO Q8H PRN sumatriptan succinate 50 mg PO Q2-4H PRN 30 days Tobacco use date assessed: 08/06/23 Dental Screening Dental Screen Date: 08/06/23 Did you have a dental visit in the last 12 months?: Yes Did you have a dental problem in the last 6 months where you did not have access to dental care?: No Was dental information given to patient?: Patient has dentist HPI Annual PE HPI Details Pt is here for a PE. Will order labs. 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 Mammogram already scheduled. Referring to gastro for a colon screen. pt reported some chest discomfort, which does not radiate, to left upper chest. This sensation occurred mostly with inhalation, i'm stressed . WIll get a EKG today. Pain not reproducible with palpation PFSH Medical History Anxiety and depression Asthma Cervical neck pain with evidence of disc disease Constipation Endometriosis Iliotibial band syndrome affecting left lower leg Left fibular fracture Left tibial fracture Lumbago Migraines Right ovarian cyst Surgical History History of oophorectomy, unilateral History of eye surgery History of surgery History of fracture of leg History of bunionectomy History of section Hx of cholecystectomy History of tendonitis Family History Father No problems noted. Mother No problems noted. Brother No problems noted. Brother No problems noted. Sister No problems noted. Maternal Grandfather No problems noted. Maternal Grandmother No problems noted. Paternal Grandfather No problems noted. Paternal Grandmother No problems noted. Daughter No problems noted. Son No problems noted. Social History Housing: House Alcohol intake: never Patient Tobacco Use Status: Never used Tobacco e-Cigarette/Vaping Use: Never Used Second Hand Smoke Exposure: No service: No Current occupational status: unemployed and disabled Cognitive needs: No Hearing needs: No Vision needs: No Review of Systems Const Denies chills and Denies fever(s) Eyes Denies blurry vision ENT Denies vertigo, Denies dizziness and Denies sore throat Card Reports chest pain at rest (with inhalation, started recently), Denies chest pain with activity, Denies diaphoresis, Denies dyspnea and Denies dyspnea on exertion Resp Denies cough, Denies dyspnea, Denies dyspnea on exertion and Denies wheezing GI Denies abdominal pain, Denies melena, Denies hematochezia, Denies constipation, Denies diarrhea and Denies loose stools Denies hematuria Musc Denies numbness and Denies tingling Skin/Breast Denies lesions Neuro Denies vertigo, Denies dizziness, Denies numbness and Denies tingling Psych Denies anxiety, Denies depression, Denies homicidal ideation, Denies suicidal ideation and Denies other (substance abuse) Aller/Immun Denies wheezing Physical exam (Primary Care) Vital Signs: Last Vital Signs Pulse 72 08/06/23 11:36 BP 102/70 08/06/23 11:36 Pulse Ox 98 08/06/23 11:36 Oxygen Delivery Method Room Air 08/06/23 11:36 BMI result Body Mass Index 29.2 Tobacco/Smoking Status: Tobacco use Status Tobacco use date assessed 08/06/23 08/06/23 11:42 Patient Tobacco Use Status Never used Tobacco 08/06/23 11:42 e-Cigarette/Vaping Use Never Used 08/06/23 11:42 Const General: cooperative Nutritional Appearance: well nourished Orientation/consciousness: patient oriented x3 HENMT Head: Yes normal to inspection, Yes normocephalic and Yes atraumatic Ears: TM's normal bilaterally Eyes General: appearance normal, both eyes and all related structures Alignment and Position: alignment normal and position normal Neck Neck: Yes normal visual inspection and Yes no lymphadenopathy Thyroid: Thyroid normal Resp Effort & Inspection: normal respiratory effort Auscultation: clear to auscultation bilaterally Cardio Rate: regular rate Rhythm: regular rhythm Heart sounds: S1 normal heart sound present, S2 normal heart sound present and no murmurs GI Palpation (GI): Soft to palpation and nontender Auscultation: normal bowel sounds Skin Rashes: no rashes Neuro General: patient oriented x3, moves all extremities, no focal motor deficits and deep tendon reflexes 2+ bilaterally Romberg Test: Negative Psych Appearance: grossly normal Mental Status: mental status grossly normal Speech and movement: Normal speech and movement present Affect: normal affect Attitude: cooperative Thought process: Normal thought process present Thought content: Normal thought content present Insight: Good insight present (Psych) Judgement: Good judgement present (Psych) Assessment and Plan Assessment & Plan (1) Screening for colon cancer: Code(s): Z12.11 - Encounter for screening for malignant neoplasm of colon (2) Physical exam: Code(s): Z00.00 - Encounter for general adult medical examination without abnormal findings Plan: labs ordered (3) Chest discomfort: Code(s): R07.89 - Other chest pain Plan: ekg today was benign, knows to go to the ER with worsening symptoms Orders: Orders Comprehensive [place]. Panel Fast Today Z00.00 - Encounter for general adult medical examination without abnormal findings UA CC w/rflx Micro + Cult Today Z00.00 - Encounter for general adult medical examination without abnormal findings Complete Blood Count Auto Diff Today Z00.00 - Encounter for general adult medical examination without abnormal findings TSH reflex Free T4 Today Z00.00 - Encounter for general adult medical examination without abnormal findings Lipid Panel Today Z00.00 - Encounter for general adult medical examination without abnormal findings AMB EKG-In Office Today R07.89 - Other chest pain, Z00.00 - Encounter for general adult medical examination without abnormal findings XR chest 2V Today R07.89 - Other chest pain Referrals Gastroenterology Referral Z12.11 - Encounter for screening for malignant neoplasm of colon Medications: New ibuprofen 800 mg PO Q8H PRN 90 tabs 0RF pain 30 days ondansetron 4 mg PO Q8H PRN 90 tabs 0RF nausea and vomiting 30 days Discontinued ondansetron HCl Discontinued Reason: Duplicate 4 mg PO Q8H PRN 10 tabs 0RF nausea Coding Level of Care Code Est Pt Prev Care 40-64y(59668) Diagnoses Screening for colon cancer Z12.11 Physical exam Z00.00 Chest discomfort R07.89
== END 2023-08-06 14:25 | disposition home or self-care (01) ==
PROVIDERS: Visit Provider Nurse Practitioner Family
DX: Z00.00 Encounter for general adult medical examination without abnormal findings (principal); Z12.11 Encounter for screening for malignant neoplasm of colon; R07.89 Other chest pain
CPT/HCPCS: 99396

== ENCOUNTER → 2023-10-08 11:46 | Outpatient (BNVA) | payer MEDICARE, MEDICAID, SELFPAY | PROVIDERS: PCP Nurse Practitioner Family; Visit Provider Nurse Practitioner Family ==

== ENCOUNTER 2023-12-05 10:00 | Outpatient (AMB) | payer MEDICARE, MEDICAID, SELFPAY ==
--- NOTE | 2023-12-05 10:03 | A.OFFPC_ITS ---
Vital Signs 12/05/23 10:04 Height 5 ft 5 in Weight 170 lb BMI 28.3 BP 104/62 Blood Pressure Location Rt brachial Position Sitting Pulse 76 Pulse Source Pulse Oximeter Pulse Oximetry (%) 97 Intake Visit Reasons: 4 Month follow up Intake Note: pt is here for 4 month follow up, no concerns routine visit Endoscopy Specialty Technician Required: No Accompanied by: Self / Same As Patient Allergies hydrocodone [HYDROCODONE] Allergy (Unknown, Verified 12/05/23 10:04) SEVERE HEADACHE oxycodone [OXYCODONE] Allergy (Unknown, Verified 12/05/23 10:04) SEVERE HEADACHE latex [LATEX] Adverse Reaction (Mild, Verified 12/05/23 10:04) RASH morphine [MORPHINE] Adverse Reaction (Unknown, Verified 12/05/23 10:04) HEADACHES Tobacco use date assessed: 12/05/23 Dental Screening Dental Screen Date: 12/05/23 Did you have a dental visit in the last 12 months?: Yes Did you have a dental problem in the last 6 months where you did not have access to dental care?: No Was dental information given to patient?: Patient has dentist HPI 4 Month follow up HPI Details Pt reports a recent viral illness. She reports ongoing cough and chest discomfort. Pt states that this is improving. Denies fever, chills, and shortness of breath. Encouraged pt to have her labs drawn. [facility] Medical History Iliotibial band syndrome affecting left lower leg Lumbago Anxiety and depression Endometriosis Cervical neck pain with evidence of disc disease Left fibular fracture Left tibial fracture Right ovarian cyst Constipation Migraines Asthma Surgical History History of oophorectomy, unilateral History of eye surgery History of surgery History of fracture of leg History of bunionectomy History of section Hx of cholecystectomy History of tendonitis Family History Father No problems noted. Mother No problems noted. Brother No problems noted. Brother No problems noted. Sister No problems noted. Maternal Grandfather No problems noted. Maternal Grandmother No problems noted. Paternal Grandfather No problems noted. Paternal Grandmother No problems noted. Daughter No problems noted. Son No problems noted. Paternal Aunt Breast cancer Maternal Aunt Lung cancer Social History Housing: House Alcohol intake: never Patient Tobacco Use Status: Never used Tobacco e-Cigarette/Vaping Use: Never Used Second Hand Smoke Exposure: No service: No Current occupational status: unemployed and disabled Cognitive needs: No Hearing needs: No Vision needs: No Questionnaire PHQ-9 Over the last 2 weeks, how often have you been bothered by any of the following problems? 1. Little interest or pleasure in doing things: not at all 2. Feeling down, depressed, or hopeless: not at all 3. Trouble falling or staying asleep, or sleeping too much: not at all 4. Feeling tired or having little energy: not at all 5. Poor appetite or overeating: not at all 6. Feeling bad about yourself - or that you are a failure or have let yourself or your family down: not at all 7. Trouble concentrating on things, such as reading the newspaper or watching television: not at all 8. Moving or speaking so slowly that other people could have noticed. Or the opposite - being so fidgety or restless that you have been moving around a lot more than usual: not at all 9. Thoughts that you would be better off or of hurting yourself in some way: not at all Total score: 0 Depression Screening Interpretation: Negative Depression Screening Done: Yes 59677 - PHQ-9 Billing: Yes Source: Developed by Drs. Sagar Tavarez, Melissa Menard, Danilo Ceja and colleagues, with an educational jannette from [employer]. Thrive Questionnaire Date Thrive assessed: 12/05/23 I am a: Patient What is your living situation today?: I have a steady place to live Within the past 12 months, did the food you bought not last and you didn't have the money to get more?: Never true Within the past 12 months, did you worry whether your food would run out before you got money to buy more?: Never true Do you have trouble paying for medicines?: No Do you have trouble getting transportation to medical appointments?: No Do you have trouble paying your heating and electricity bill?: No Do you have trouble taking care of your child, family member or friend?: No Do you have trouble with day-to-day activities such as bathing, preparing meals, shopping, managing finances, etc.?: No Are you currently unemployed and looking for a job?: No Are you interested in more education?: No Please select the resources that you would like help with: None Currently or been in a relationship where the following occur: no concerns reported AUDIT C Alcohol Use Questionnaire (AUDIT-C) 1. How often do you have a drink containing alcohol?: Never 2. How many drinks containing alcohol do you have on a typical day when you are drinking?: 1 or 2 3. How often do you have six or more drinks on one occasion?: Never Total Score: 0 SHERRY-7 AMB Questionnaire SHERRY-7 Date SHERRY - 7 assessed: 12/05/23 Feeling nervous, anxious, or on edge: 0 = Not at all Not being able to stop or control worryin = Not at all Worrying too much about different things: 0 = Not at all Trouble relaxin = Not at all Being so restless that it is hard to sit still: 0 = Not at all Becoming easily annoyed or irritable: 0 = Not at all Feeling afraid as if something awful might happen: 0 = Not at all Total SHERRY-7 score (0-4 normal; 5-9 mild; 10-14 moderate; 15-21 severe): 0 Source: Developed by Drs. Sagar Tavarez, Melissa Menard, Danilo Ceja and colleagues, with an educational jannette from [employer]. SHERRY-7 Assessment Billing SHERRY-7 Assessment Tool: SHERRY-7 Assessment 23056 Review of Systems Const Reports as per HPI Physical exam (Primary Care) Vital Signs: Last Vital Signs Pulse 76 12/05/23 10:04 BP 104/62 12/05/23 10:04 Pulse Ox 97 12/05/23 10:04 BMI result Body Mass Index 28.3 Tobacco/Smoking Status: Tobacco use Status Tobacco use date assessed 12/05/23 12/05/23 10:07 Patient Tobacco Use Status Never used Tobacco 12/05/23 10:05 e-Cigarette/Vaping Use Never Used 12/05/23 10:05 PHQ-9: PHQ-9 Score PHQ-9: Total score 0 12/05/23 10:12 Depression Screening Interpretation: Negative Thrive Assessment: Date of Thrive Assessment Date Thrive assessed 12/05/23 12/05/23 10:07 Currently or been in a relationship where the following occur: no concerns reported Const General: cooperative Orientation/consciousness: patient oriented x3 Resp Effort & Inspection: normal respiratory effort Auscultation: clear to auscultation bilaterally Cardio Rate: regular rate Rhythm: regular rhythm Heart sounds: S1 normal heart sound present and S2 normal heart sound present Neuro General: patient oriented x3 Psych Appearance: grossly normal Mental Status: mental status grossly normal Speech and movement: Normal speech and movement present Affect: normal affect Attitude: cooperative Thought process: Normal thought process present Thought content: Normal thought content present Insight: Good insight present (Psych) Judgement: Good judgement present (Psych) Assessment and Plan Assessment & Plan (1) Chest discomfort: Code(s): R07.89 - Other chest pain Plan: condition is better, recent viral illness, slight cough (residual) (2) Cough: Code(s): R05.9 - Cough, unspecified Plan: getting better, recent viral illness, residual Plan The patient agreed to the use of a medical appliance maker for this encounter. Scribed for CONSTANCE Galindo by Stacey Rice medical appliance maker, on 12/05/2023 at 10:30 EST. Coding Level of Care Code Est Pt Level 3 (64515) Diagnoses Chest discomfort R07.89 Cough R05.9 Additional Codes SHERRY-7 Assessment Billing - SHERRY-7 Assessment Tool: SHERRY-7 Assessment 97908 ([id number])
[2023-12-05 10:04] VITALS: BP 104/62; PULSE 76; O2SAT 97; BMI 28.3
== END 2023-12-05 10:45 | disposition home or self-care (01) ==
PROVIDERS: PCP Nurse Practitioner Family; Visit Provider Nurse Practitioner Family
DX: R07.89 Other chest pain (principal); R05.9 Cough, unspecified
CPT/HCPCS: 99213

== ENCOUNTER 2024-02-04 11:38 | Day surgery (SDC) | payer MEDICARE, MEDICAID, SELFPAY ==
--- NOTE | 2024-02-03 14:25 | HO.ANESPROP2 ---
Documented by User: Rosa Guerin NP 02/03/24 14:25 HPI - Anesthesia Eval Consult details Narrative: 48yo F for Colonoscopy PMFSH Active Problems Active Problems: All Active Problems (Updated 12/05/23 @ 11:15 by CONSTANCE Sevilla) Cough (Acute) Chest discomfort (Acute) Physical exam (Acute) Screening for colon cancer (Acute) Upper respiratory tract infection (Acute) Iliotibial band syndrome affecting left lower leg (Acute) Functional gait disorder (Acute) Strain of left trapezius muscle (Acute) Pain of left clavicle (Acute) Contusion of left clavicle (Acute) Abdominal pain (Acute) Diarrhea (Acute) Left tibial fracture (Acute) Left fibular fracture (Acute) Neuropathy (Acute) Encounter for annual wellness visit (AWV) in Medicare patient (Acute) Pain of left clavicle (Acute) Left shoulder pain (Acute) Supraclavicular mass (Acute) Lymphadenopathy, supraclavicular (Acute) Left ankle pain (Acute) Left hip pain (Acute) GERD (gastroesophageal reflux disease) (Acute) Left leg numbness (Acute) Past Medical History Medical History Iliotibial band syndrome affecting left lower leg Lumbago Anxiety and depression Endometriosis Cervical neck pain with evidence of disc disease Left fibular fracture Left tibial fracture Right ovarian cyst Constipation Migraines Asthma Family History Family History Father No problems noted. Mother No problems noted. Brother No problems noted. Brother No problems noted. Sister No problems noted. Maternal Grandfather No problems noted. Maternal Grandmother No problems noted. Paternal Grandfather No problems noted. Paternal Grandmother No problems noted. Daughter No problems noted. Son No problems noted. Paternal Aunt Breast cancer Maternal Aunt Lung cancer Surgical History Surgical History History of oophorectomy, unilateral History of eye surgery History of surgery History of fracture of leg History of bunionectomy History of section Hx of cholecystectomy History of tendonitis Social History Social History Housing: House Alcohol intake: never Patient Tobacco Use Status: Never used Tobacco e-Cigarette/Vaping Use: Never Used Second Hand Smoke Exposure: No Advance Directives: No Advance Directives Information Provided: Yes service: No Current occupational status: unemployed and disabled Cognitive needs: No Hearing needs: No Vision needs: No Meds Allergies Allergy/AdvReac Type Severity Reaction Status Date / Time hydrocodone [HYDROCODONE] Allergy Unknown SEVERE Verified 12/05/23 10:04 HEADACHE oxycodone [OXYCODONE] Allergy Unknown SEVERE Verified 12/05/23 10:04 HEADACHE latex [LATEX] AdvReac Mild RASH Verified 12/05/23 10:04 morphine [MORPHINE] AdvReac Unknown HEADACHES Verified 12/05/23 10:04 Home Medications Medication Instructions Recorded Confirmed Last Taken Type hydroxyzine HCl 50 mg tablet 50 mg PO BID 07/04/21 08/06/23 02/20/22 History acetaminophen 500 mg tablet 500 mg PO Q6H PRN HEADACHES 02/22/22 08/06/23 Unknown History calcium carbonate 500 mg calcium 500 mg PO BID PRN Acid Reflux 02/22/22 08/06/23 02/20/22 History (1,250 mg) chewable tablet Assessment and Plan Assessment Anesthesia Assessment: Chart Reviewed Documented by User: Kandi Mancini MD 02/04/24 11:49 [facility] Past Medical History Medical History Iliotibial band syndrome affecting left lower leg Lumbago Anxiety and depression Endometriosis Cervical neck pain with evidence of disc disease Left fibular fracture Left tibial fracture Right ovarian cyst Constipation Migraines Asthma Family History Family History Father No problems noted. Mother No problems noted. Brother No problems noted. Brother No problems noted. Sister No problems noted. Maternal Grandfather No problems noted. Maternal Grandmother No problems noted. Paternal Grandfather No problems noted. Paternal Grandmother No problems noted. Daughter No problems noted. Son No problems noted. Paternal Aunt Breast cancer Maternal Aunt Lung cancer Family history of problems with anesthesia: No Surgical History Surgical History History of oophorectomy, unilateral History of eye surgery History of surgery History of fracture of leg History of bunionectomy History of section Hx of cholecystectomy History of tendonitis History of Problems with Anesthesia: No Social History Social History Housing: House Alcohol intake: never Patient Tobacco Use Status: Never used Tobacco e-Cigarette/Vaping Use: Never Used Second Hand Smoke Exposure: No Advance Directives: No Advance Directives Information Provided: Yes service: No Current occupational status: unemployed and disabled Cognitive needs: No Hearing needs: No Vision needs: No Meds Allergies Allergy/AdvReac Type Severity Reaction Status Date / Time hydrocodone [HYDROCODONE] Allergy Unknown SEVERE Verified 12/05/23 10:04 HEADACHE oxycodone [OXYCODONE] Allergy Unknown SEVERE Verified 12/05/23 10:04 HEADACHE latex [LATEX] AdvReac Mild RASH Verified 12/05/23 10:04 morphine [MORPHINE] AdvReac Unknown HEADACHES Verified 12/05/23 10:04 Home Medications Medication Instructions Recorded Confirmed Last Taken Type hydroxyzine HCl 50 mg tablet 50 mg PO BID 07/04/21 08/06/23 02/20/22 History acetaminophen 500 mg tablet 500 mg PO Q6H PRN HEADACHES 02/22/22 08/06/23 Unknown History calcium carbonate 500 mg calcium 500 mg PO BID PRN Acid Reflux 02/22/22 08/06/23 02/20/22 History (1,250 mg) chewable tablet Exam Airway Mallampati Class: II TM Dist: >3cm Assessment and Plan Assessment Anesthesia Assessment: Anesthesia Plan Discussed Final Anesthetic Review Family History of Problems with Anesthesia: No History of Problems with Anesthesia: No NPO: Yes ASA Class: II Final Preanesthetic Review: No Changes in Pt Med Stat, Meds/Allgs Chart Reviewed, Consent Obtained/Reviewed and Anes Risks/Benef Reviewed Patient Risk: Low Procedure Risk: Low Anesthetic Plan Anesthetic Plan: TIVA Disposition: Standard PACU
[2024-02-04 11:52] VITALS: BMI 27.7
[2024-02-04 12:00] VITALS: BP 111/71; PULSE 86; RESP 20; TEMP 36.3; O2SAT 98
--- NOTE | 2024-02-04 12:03 | P.HPSUR_ITS ---
Pre-Procedural Eval Section A - 24 Hr Update-Section A only Date of Service: 02/04/24 Section B - Complete if H&P > 30 days Chief Complaint: screening Relevant Family History (Specify if Yes): No Relevant Social History: None Present Medications: see Short Stay Collaborative assessment Medical History: Significant History ( Iliotibial band syndrome affecting left lower leg Lumbago Anxiety and depression Endometriosis Cervical neck pain with evidence of disc disease Left fibular fracture Left tibial fracture Right ovarian cyst Constipation Migraines Asthma) History of Previous Operations: Relevant previous surgery/procedure and date(s) (History of oophorectomy, unilateral History of eye surgery History of surgery History of fracture of leg History of bunionectomy History of section Hx of cholecystectomy History of tendonitis) Allergies: Allergies Allergy/AdvReac Type Severity Reaction Status Date / Time hydrocodone [HYDROCODONE] Allergy Unknown SEVERE Verified 12/05/23 10:04 HEADACHE oxycodone [OXYCODONE] Allergy Unknown SEVERE Verified 12/05/23 10:04 HEADACHE latex [LATEX] AdvReac Mild RASH Verified 12/05/23 10:04 morphine [MORPHINE] AdvReac Unknown HEADACHES Verified 12/05/23 10:04 Review of Systems Sugical H&P ROS: Negative: Constitution, Cardiovascular, Respiratory, Neurological, Psychiatric, Hem-Onc, Allergic/Immunologic, Gastrointestinal, Genitourinary, Musculoskeletal, Integumentary, Endocrine and Eyes/Ear s/Nose/Throat Exam Surgical H&P Exam: Normal: HEENT, Normal: Heart, Normal: Lungs, Normal: Extremities, Normal: Abdomen, Normal: Skin and Normal: Neurological Plan Diagnosis/Plan: Unchanged I have reviewed the history and physical and performed a pertinent physical examination on my patient. No changes have occurred unless specified. Time Spent With Patient Time: Total time managing care of this patient today ____ minutes.
--- NOTE | 2024-02-04 12:04 | P.OP_ITS ---
Operative Note Operative Note Date of Service: 02/04/24 Narrative: Operative Information Procedure Description: Colonoscopy Indication: Screening Anesthesia: MAC COLONOSCOPY Instrument: Olympus variable stiffness pediatric scope 190L Colonoscopy Monitoring: Vital signs and clinical assessment, continuous EKG monitoring, Pulse oximetry, Carbon Dioxide monitoring and blood pressure monitoring were done throughout the procedure. Colon withdrawal time was 9 minutes. Procedure: The patient was placed in the left lateral decubitis position and pre-procedure medications were administered. After a digital rectal examination of the ano-rectum, the video colonoscope was inserted into the rectum and advanced through the colon to the cecum/TI. The colonoscope was slowly withdrawn in a retrograde panoramic fashion and the colon mucosa was carefully examined including a retroflexed view of the rectum. Findings and interventions are described below. Procedure Difficulty: easy Findings: Terminal Ileum-normal Cecum:normal Ascending Colon: 6-8 mm sessile polyp removed with cold forceps Transverse Colon -normal Descending Colon:normal Sigmoid Colon: normal Rectum: Retroflexion with small to medium internal hemorrhoids seen, grade I Anorectum - normal Intervention: cold forceps polypectomy Colon preparation: [place] Bowel Preparation Scale Right colon; 2 Transverse colon: 2 Left colon; 2 (0 = Unprepared colon segment with mucosa not seen due to solid stool that cannot be cleared. 1 = Portion of mucosa of the colon segment seen, but other areas of the colon segment not well seen due to staining, residual stool and/or opaque liquid. 2 = Minor amount of residual staining, small fragments of stool and/or opaque liquid, but mucosa of colon segment seen well. 3 = Entire mucosa of colon segment seen well with no residual staining, small fragments of stool or opaque liquid) Impression and Post Procedure Diagnosis: colon polyp internal hemorrhoids Plan: High fiber diet leaflet Avoid straining at stool, epsom salts and sitz bath, anusol supps or cream Repeat Colonoscopy in 5-7 years if adenomatous polyp, 10 yrs if non adenomatous or earlier if clinically indicated Above findings were reviewed with the patient and relevant handouts were provided if indicated.
[2024-02-04 12:21] LABS: UPreg QC Valid YES; Urine Pregnancy NEGATIVE (NEGATIVE)
[2024-02-04 12:50] VITALS: BP 98/67; PULSE 79; RESP 18; TEMP 36.1; O2SAT 99
[2024-02-04 13:05] VITALS: BP 112/73; PULSE 70; RESP 16; TEMP 36.1; O2SAT 99
== END 2024-02-04 13:48 | disposition home or self-care (01) ==
PROVIDERS: Nurse Practitioner; PCP Nurse Practitioner Family; Visit Provider Internal Medicine Gastroenterology
PROC: 0DJD8ZZ Inspection of Lower Intestinal Tract, Via Natural or Artificial Opening Endoscopic (ICD-10-PCS; CPT 45378; principal; 2024-02-04 13:30)
DX: Z12.11 Encounter for screening for malignant neoplasm of colon (principal); D12.2 Benign neoplasm of ascending colon; K64.0 First degree hemorrhoids
CPT/HCPCS: 45380; 81025; 88305; J2704

== ENCOUNTER → 2024-02-04 11:38 | Outpatient (BNV) | payer MEDICARE, MEDICAID, SELFPAY | PROVIDERS: PCP Nurse Practitioner Family; Visit Provider Internal Medicine Gastroenterology | DX: Z12.11 Encounter for screening for malignant neoplasm of colon (principal); K63.5 Polyp of colon; K64.0 First degree hemorrhoids | CPT/HCPCS: 45380 ==

== ENCOUNTER 2024-03-30 08:45 | Outpatient (REF) | payer MEDICARE, MEDICAID, SELFPAY ==
[2024-03-30 10:22] LABS: MANUAL DIFF FLAG NO
[2024-03-30 10:22] LABS: Appearance Urine Clear; Color Urine Yellow; Glucose Urine UA Negative (Negative); Leukocyte Esterase Urine Negative (Negative); Nitrite Urine Negative (Negative); PH 5.5 (5.0-9.0); Urine Blood Negative (Negative); Urine Ketones Negative (Negative); Urine Protein Negative (Neg-Trace)
[2024-03-30 10:27] LABS: Basophils Absolute Auto 0.1 X10*3/uL (0.0-0.2); Basophils Percent Auto 1.5 % (0-2); Eosinophils Absolute Auto 0.1 X10*3/uL (0.0-0.4); Eosinophils Percent Auto 1.9 % (0-4); Hematocrit 44.1 % (37.0-47.0); Hemoglobin 14.8 g/dl (12.0-16.0); Imm Gran Abs Auto 0.02 X10*3/uL (0.00-0.03); Imm Gran Pct Auto 0.4 % (0.0-0.4); Lymphocytes Absolute Auto 1.7 X10*3/uL (1.2-4.9); Lymphocytes Percent Auto 34.4 % (20-40); Mean Corpuscular HGB Conc 33.6 g/dl (31.0-35.0); Mean Corpuscular Hemoglobin 29.5 pg (27.0-33.0); Mean Corpuscular Volume 87.8 fL (80.0-98.0); Mean Platelet Volume 9.1 fL (9.4-12.3); Monocytes Absolute Auto 0.5 X10*3/uL (0.1-1.2); Monocytes Percent Auto 9.3 % (2-11); Neutrophils Absolute Auto 2.5 x10*3/uL (2.0-8.3); Neutrophils Percent Auto 52.5 % (45-73); Platelet Count 291 X10*3/uL (160-400); Red Blood Count 5.02 X10*6/uL (4.20-5.50); Red Cell Distribution Width 13.5 % (11.0-16.0); White Blood Count 4.8 X10*3/uL (4.8-10.8)
[2024-03-30 11:08] LABS: Alanine Aminotransferase 18 U/L (0-31); Albumin Level 4.2 g/dL (3.5-5.0); Alkaline Phosphatase 46 U/L (39-117); Anion Gap 15 (12-20); Aspartate Amino Transferase 14 U/L (5-31); Bilirubin Total 0.6 mg/dL (0.0-1.0); Blood Urea Nitrogen 14 mg/dL (9-16); Calcium 9.9 mg/dL (8.4-10.2); Carbon Dioxide 25 mmol/L (22-29); Chloride 107 mmol/L (96-108); Cholesterol 185 mg/dL (<200); Estimated Glomerular Filt Rate > 60; Glucose Fasting 91 mg/dL (60-99); HDL Cholesterol 64 mg/dL (>40); LDL Cholesterol Calculated 97 mg/dL (<100); Potassium 4.7 mmol/L (3.3-5.1); Sodium 142 mmol/L (135-145); Total Protein 7.4 g/dL (6.5-8.0); Triglycerides 124 mg/dL (<150)
[2024-03-30 11:24] LABS: TSH reflex Free T4 1.33 uIU/mL (0.32-4.0)
== END 2024-03-30 08:46 | disposition home or self-care (01) ==
LOC: HO.HMGCLDS 08:45
PROVIDERS: PCP Nurse Practitioner Family; Visit Provider Nurse Practitioner Family
DX: Z00.00 Encounter for general adult medical examination without abnormal findings (principal)
CPT/HCPCS: 36415; 80053; 80061; 81003; 84443; 85025

== ENCOUNTER 2024-03-30 09:46 | Outpatient (AMB) | payer MEDICARE, MEDICAID, SELFPAY ==
--- NOTE | 2024-03-30 09:47 | MHC.PC.OV ---
Vital Signs 03/30/24 09:49 Weight 164 lb BP 110/78 Blood Pressure Location Lt brachial Position Sitting Pulse 80 Pulse Source Pulse Oximeter Pulse Oximetry (%) 98 Oxygen Delivery Method Room Air Intake Visit Reasons: 4 Month F/U Labs Intake Note: Patient here to follow up on lab work Allergies hydrocodone [HYDROCODONE] Allergy (Unknown, Verified 03/30/24 09:50) SEVERE HEADACHE oxycodone [OXYCODONE] Allergy (Unknown, Verified 03/30/24 09:50) SEVERE HEADACHE latex [LATEX] Adverse Reaction (Mild, Verified 03/30/24 09:50) RASH morphine [MORPHINE] Adverse Reaction (Unknown, Verified 03/30/24 09:50) HEADACHES Medication List - Last Reconciled 03/30/24 by CONSTANCE Sevilla acetaminophen 500 mg PO Q6H PRN albuterol sulfate 90 mcg/actuation (Ventolin HFA) 1 inh inhalation QID PRN calcium carbonate 500 mg PO BID PRN gabapentin 100 mg PO DAILY 30 days hydroxyzine HCl 50 mg PO BID ibuprofen 600 mg PO Q8H PRN 30 days ondansetron 4 mg PO Q8H PRN 30 days sumatriptan succinate 50 mg PO Q2-4H PRN 30 days Tobacco use date assessed: 12/05/23 Dental Screening Dental Screen Date: 12/05/23 HPI 4 Month F/U Labs HPI Details Pt c/o intermittent chest discomfort. She reports that this happens randomly and does not radiate. Pt reports that this is worse with touch. Will do an EKG in office. Will order stress test, though I do not think this is cardiac related. Denies fever, chills, and shortness of breath. Pt had labs drawn today. COUNTS INCLUDE 234 BEDS AT THE [facility] Medical History (Updated 12/05/23 @ 11:15 by CONSTANCE Sevilla) Iliotibial band syndrome affecting left lower leg Lumbago Anxiety and depression Endometriosis Cervical neck pain with evidence of disc disease Left fibular fracture Left tibial fracture Right ovarian cyst Constipation Migraines Asthma Surgical History Hx of tubal ligation Hx of tubal ligation History of oophorectomy, unilateral History of eye surgery History of surgery History of fracture of leg History of bunionectomy History of section Hx of cholecystectomy History of tendonitis Family History (Reviewed 03/30/24 @ 10:41 by [facility] Father No problems noted. Mother No problems noted. Brother No problems noted. Brother No problems noted. Sister No problems noted. Maternal Grandfather No problems noted. Maternal Grandmother No problems noted. Paternal Grandfather No problems noted. Paternal Grandmother No problems noted. Daughter No problems noted. Son No problems noted. Paternal Aunt Breast cancer Maternal Aunt Lung cancer Social History (Reviewed 03/30/24 @ 10:41 by [facility] Housing: House Alcohol intake: never Patient Tobacco Use Status: Never used Tobacco e-Cigarette/Vaping Use: Never Used Second Hand Smoke Exposure: No service: No Current occupational status: unemployed and disabled Cognitive needs: No Hearing needs: No Vision needs: No Questionnaire Thrive Questionnaire Date Thrive assessed: 12/05/23 SHERRY-7 AMB Questionnaire SHERRY-7 Date SHERRY - 7 assessed: 12/05/23 Source: Developed by Drs. Sagar Tavarez, Melissa Menard, Danilo Ceja and colleagues, with an educational jannette from [employer]. Review of Systems Const Reports as per HPI Physical exam (Primary Care) Vital Signs: Last Vital Signs Pulse 80 03/30/24 09:49 BP 110/78 03/30/24 09:49 Pulse Ox 98 03/30/24 09:49 Oxygen Delivery Method Room Air 03/30/24 09:49 Tobacco/Smoking Status: Tobacco use Status Tobacco use date assessed 12/05/23 03/30/24 09:49 Patient Tobacco Use Status Never used Tobacco 03/30/24 09:49 e-Cigarette/Vaping Use Never Used 03/30/24 09:49 Thrive Assessment: Date of Thrive Assessment Date Thrive assessed 12/05/23 03/30/24 09:49 Const General: cooperative Orientation/consciousness: patient oriented x3 Chest Other: not tender with touch, no pain with turning upper torso Resp Effort & Inspection: normal respiratory effort Auscultation: clear to auscultation bilaterally Cardio Rate: regular rate Rhythm: regular rhythm Heart sounds: S1 normal heart sound present and S2 normal heart sound present Neuro General: patient oriented x3 Extrem Right lower extremity: no edema Left lower extremity: no edema Psych Appearance: grossly normal Mental Status: mental status grossly normal Speech and movement: Normal speech and movement present Affect: normal affect Attitude: cooperative Thought process: Normal thought process present Thought content: Normal thought content present Insight: Good insight present (Psych) Judgement: Good judgement present (Psych) Assessment and Plan Assessment & Plan (1) Chest discomfort: Code(s): R07.89 - Other chest pain Plan: Stress test ordered, pt know to go to the ER with any worsening symptoms Plan The patient agreed to the use of a medical economics consultant for this encounter. Scribed for CONSTANCE Galindo by Stacey Rice medical economics consultant, on 03/30/2024 at 10:15 EST. Orders: Orders CA stress test Today R07.89 - Other chest pain Coding Level of Care Code Est Pt Level 3 (90644) Diagnoses Chest discomfort R07.89
[2024-03-30 09:49] VITALS: BP 110/78; PULSE 80; O2SAT 98
== END 2024-03-30 11:54 | disposition home or self-care (01) ==
PROVIDERS: PCP Nurse Practitioner Family; Visit Provider Nurse Practitioner Family
DX: R07.89 Other chest pain (principal)
CPT/HCPCS: 99213

== ENCOUNTER → 2024-04-29 08:57 | Outpatient (REF) | payer MEDICARE, MEDICAID, SELFPAY ==
--- NOTE | 2024-04-29 08:59 | CA_ITS ---
Acquisition Time: 2024-04-29 09:07:42 Total Exercise Time: 00:09:10 Test Indications: CP Medications: ALBUTEROL GABAPENTIN HYDROXIZINE Protocol: LETHA Max HR: 155 BPM 90% of Pred: 172 BPM Max BP: 150/082 mmHG Max Work Load: 10.3 METS Exercise stress test exercise 9 min 10 sec of Letha protocol achieving 88% MPHR, with two episodes of 2/10 sharp chest pains lasting about 1 sec, with mild SOB, without arrhythmias, with normotensive response to exercise, without EKG changes. Equivocal. Test reviewed with Dr. De La Vega. Referred By: Ameya Enamorado Overread By: Karen Pickering
== END ==
LOC: HO.CARD 08:57
PROVIDERS: PCP Nurse Practitioner Family; Visit Provider Nurse Practitioner Family
DX: R07.89 Other chest pain (principal)
CPT/HCPCS: 93017

== ENCOUNTER → 2024-04-29 08:59 | Outpatient (BNV) | payer MEDICARE, MEDICAID, SELFPAY | PROVIDERS: PCP Nurse Practitioner Family; Visit Provider Nurse Practitioner | DX: R07.9 Chest pain, unspecified (principal) | CPT/HCPCS: 93016; 93018 ==

== ENCOUNTER 2024-07-01 13:00 | Outpatient (REF) | payer MEDICARE, MEDICAID, SELFPAY ==
--- NOTE | ~2024-07-01 | XR_ITS ---
EXAMINATION: XR HIP, LEFT CLINICAL INFORMATION: Left hip pain. COMPARISON: Left hip radiographs dated 03/13/2021. TECHNIQUE: Two views of the left hip. FINDINGS: No acute fracture or dislocation. Mild left hip joint space narrowing with small marginal osteophytes, unchanged. No osseous erosion. No evidence of a vascular necrosis. New calcification within the soft tissues adjacent to the greater trochanter measuring up to 1.4 cm, consistent with distal gluteal calcific tendinitis. XR/XR hip LT min 2V IMPRESSION: 1. Distal gluteal calcific tendinitis, new when compared to the prior radiographs. 2. Mild left hip osteoarthritis, unchanged. Electronically signed by: Aman Rey MD 07/07/2024 02:57 PM EDT
--- NOTE | ~2024-07-01 | XR_ITS ---
EXAMINATION: XR CHEST CLINICAL INFORMATION: Chest pain. COMPARISON: Chest radiograph dated 10/11/2020. TECHNIQUE: PA and lateral views of the chest. FINDINGS: The lungs are clear. The cardiomediastinal silhouette is normal in size. There is no pleural effusion or pneumothorax. No acute osseous abnormality. Right upper quadrant surgical clips. XR/XR chest 2V IMPRESSION: No acute cardiopulmonary findings. Electronically signed by: Aman Rey MD 07/07/2024 02:56 PM EDT
== END 2024-07-01 13:01 | disposition home or self-care (01) ==
LOC: HO.HMGCX 13:00
PROVIDERS: PCP Nurse Practitioner Family; Visit Provider Nurse Practitioner Family
DX: M25.552 Pain in left hip (principal); R07.89 Other chest pain
CPT/HCPCS: 71046; 73502

== ENCOUNTER 2024-08-10 10:56 | Outpatient (AMB) | payer MEDICARE, MEDICAID, SELFPAY ==
--- NOTE | 2024-08-10 11:14 | A.OFFVIS_ITS ---
Vital Signs 08/10/24 11:15 Height 5 ft 5 in Weight 159 lb BMI 26.5 Intake Visit Reasons: NewProb- Left Hip Pain Intake Note: Mansi is a 49 year old female who presents today for a new problem visit with complaints of left hip pain. Patient reports that she has had ongoing pain in the left hip for a few months now. She reports history of left leg fracture, and has pain in the left hip since. Patient reports that she has pain in the left hip, groin and left sided lower back all the time but worsened with increased acitivities. The pain is described as a burning pain and radiates down the leg. She takes Tylenol occasionally for pain which provides mild relief. She uses ice application as well as Salon Pas lidocaine patches. She is going to physical therapy 2x a week for the hip, but she is not finding much releif with this. Allergies hydrocodone [HYDROCODONE] Allergy (Unknown, Verified 03/30/24 09:50) SEVERE HEADACHE oxycodone [OXYCODONE] Allergy (Unknown, Verified 03/30/24 09:50) SEVERE HEADACHE latex [LATEX] Adverse Reaction (Mild, Verified 03/30/24 09:50) RASH morphine [MORPHINE] Adverse Reaction (Unknown, Verified 03/30/24 09:50) HEADACHES HPI HPI NewProb- Left Hip Pain: Details: This is a 49-year-old woman who comes in with left groin pain. It has been present for several months. She has active and healthy and going away on vacation soon. She states she feels some painful catching and clicking in her hip when she moves a certain way. She denies injury. [facility] Medical History (Updated 12/05/23 @ 11:15 by HAROON Sevilla-LORETA) Iliotibial band syndrome affecting left lower leg Lumbago Anxiety and depression Endometriosis Cervical neck pain with evidence of disc disease Left fibular fracture Left tibial fracture Right ovarian cyst Constipation Migraines Asthma Surgical History Hx of tubal ligation Hx of tubal ligation History of oophorectomy, unilateral History of eye surgery History of surgery History of fracture of leg History of bunionectomy History of section Hx of cholecystectomy History of tendonitis Family History (Reviewed 03/30/24 @ 10:41 by [facility]) Father No problems noted. Mother No problems noted. Brother No problems noted. Brother No problems noted. Sister No problems noted. Maternal Grandfather No problems noted. Maternal Grandmother No problems noted. Paternal Grandfather No problems noted. Paternal Grandmother No problems noted. Daughter No problems noted. Son No problems noted. Paternal Aunt Breast cancer Maternal Aunt Lung cancer Social History (Reviewed 03/30/24 @ 10:41 by [facility]UN[facility]) Housing: House Alcohol intake: never Patient Tobacco Use Status: Never used Tobacco e-Cigarette/Vaping Use: Never Used Second Hand Smoke Exposure: No service: No Current occupational status: unemployed and disabled Cognitive needs: No Hearing needs: No Vision needs: No Physical Exam Vital Signs: BMI result Body Mass Index 26.5 Extrem Other: Positive impingement test on the left with full range of motion. Results Reviewed Results Reviewed: I personally reviewed relevant radiographs. There is mild left hip osteoarthritis and calcific tendinitis of the greater trochanter Assessment & Plan Assessment & Plan (1) Left hip pain: Code(s): M25.552 - Pain in left hip Category: Medical Plan: This is a 49-year-old woman with left hip groin pain that appears secondary to intra-articular pathology. I recommend a hip injection to clarify. She is going on vacation in a few weeks and would like to get this done before that. I think this is reasonable. Referral for an injection was ordered Orders: Referrals Pain Management Referral M25.552 - Pain in left hip Coding Level of Care Code Est Pt Level 3 (28065) Diagnoses Left hip pain M25.552
[2024-08-10 11:15] VITALS: BMI 26.5
== END 2024-08-10 13:48 | disposition home or self-care (01) ==
PROVIDERS: PCP Nurse Practitioner Family; Visit Provider Orthopaedic Surgery
DX: M25.552 Pain in left hip (principal)
CPT/HCPCS: 99213

== ENCOUNTER → 2024-08-10 10:56 | Outpatient (BNVA) | payer MEDICARE, MEDICAID, SELFPAY | PROVIDERS: PCP Nurse Practitioner Family; Visit Provider Orthopaedic Surgery | DX: M25.552 Pain in left hip (principal); M54.50 Low back pain, unspecified; R10.30 Lower abdominal pain, unspecified | CPT/HCPCS: 99212 ==

== ENCOUNTER 2024-08-13 06:03 | Outpatient (REF) | payer MEDICARE, MEDICAID, SELFPAY | END 2024-08-13 06:04 | disposition home or self-care (01) | LOC: CF 06:03 | PROVIDERS: Visit Provider Internal Medicine | DX: M25.552 Pain in left hip (principal) | CPT/HCPCS: 20611; J3301 ==

== ENCOUNTER 2024-08-13 09:28 | Outpatient (AMB) | payer MEDICARE, MEDICAID, SELFPAY ==
[2024-08-13 09:44] VITALS: BP 97/70; PULSE 90; RESP 17; O2SAT 98
--- NOTE | 2024-08-13 10:23 | MHC.OFFVIS ---
Vital Signs 08/13/24 09:44 08/13/24 10:24 BP 97/70 94/71 Blood Pressure Location Lt brachial Lt brachial Position Sitting Sitting Respiration 17 18 Pulse 90 79 Pulse Source Pulse Oximeter Pulse Oximeter Pulse Oximetry (%) 98 98 Oxygen Delivery Method Room Air Room Air Comment Pre-op Post-op Intake Visit Reasons: Left hip injection Allergies hydrocodone [HYDROCODONE] Allergy (Unknown, Verified 03/30/24 09:50) SEVERE HEADACHE oxycodone [OXYCODONE] Allergy (Unknown, Verified 03/30/24 09:50) SEVERE HEADACHE latex [LATEX] Adverse Reaction (Mild, Verified 03/30/24 09:50) RASH morphine [MORPHINE] Adverse Reaction (Unknown, Verified 03/30/24 09:50) HEADACHES HPI HPI Left hip injection: Details: Patient presents for scheduled procedure. Denies any recent cough, cold, infection, fever or other significant changes in medical history since last office visit. [facility] Medical History (Updated 12/05/23 @ 11:15 by CONSTANCE Sevilla) Iliotibial band syndrome affecting left lower leg Lumbago Anxiety and depression Endometriosis Cervical neck pain with evidence of disc disease Left fibular fracture Left tibial fracture Right ovarian cyst Constipation Migraines Asthma Surgical History Hx of tubal ligation Hx of tubal ligation History of oophorectomy, unilateral History of eye surgery History of surgery History of fracture of leg History of bunionectomy History of section Hx of cholecystectomy History of tendonitis Family History Father No problems noted. Mother No problems noted. Brother No problems noted. Brother No problems noted. Sister No problems noted. Maternal Grandfather No problems noted. Maternal Grandmother No problems noted. Paternal Grandfather No problems noted. Paternal Grandmother No problems noted. Daughter No problems noted. Son No problems noted. Paternal Aunt Breast cancer Maternal Aunt Lung cancer Social History Housing: House Alcohol intake: never Patient Tobacco Use Status: Never used Tobacco e-Cigarette/Vaping Use: Never Used Second Hand Smoke Exposure: No service: No Current occupational status: unemployed and disabled Cognitive needs: No Hearing needs: No Vision needs: No Physical Exam Vital Signs: Last Vital Signs Pulse 79 08/13/24 10:24 Resp 18 08/13/24 10:24 BP 94/71 08/13/24 10:24 Pulse Ox 98 08/13/24 10:24 Oxygen Delivery Method Room Air 08/13/24 10:24 Office Procedures Joint Injection/Aspiration Joint Injection/Aspiration Details: Left hip intra-articular ultrasound-guided injection corticosteroid Prep: site was prepped using sterile technique Injected: 40 mg of, Kenalog and with 3 mL of (0.5% lidocaine) Approach Used: anterior (Ultrasound-guided) Procedure: The patient tolerated the procedure well Coding Details: An ultrasound image was taken and saved to the patient's permanent record 35336 - Large joint Procedure code (CPT) selection complete Assessment & Plan Assessment & Plan (1) Left hip pain: Code(s): M25.552 - Pain in left hip Category: Medical Plan Patient is status post intra-articular left hip corticosteroid injection. Patient tolerated procedure well and was discharged home in stable condition with discharge instructions. All questions were answered. We will follow-up via telephone or in clinic to assess response to therapy. A follow-up appointment was made during today's visit. Orders: Orders FL guidance in treatment room Today M25.552 - Pain in left hip Coding Level of Care Code Procedure Only Diagnoses Left hip pain M25.552 CPT Codes Coding - 33491 Large joint: 24994 - Large joint ([id number])
[2024-08-13 10:24] VITALS: BP 94/71; PULSE 79; RESP 18; O2SAT 98
== END 2024-08-13 10:23 | disposition home or self-care (01) ==
LOC: HO.PMCPRC 09:28
PROVIDERS: PCP Nurse Practitioner Family; Visit Provider Internal Medicine
DX: M25.552 Pain in left hip (principal)
CPT/HCPCS: 20611

== ENCOUNTER 2024-08-17 07:36 | Outpatient (AMB) | payer MEDICARE, MEDICAID, SELFPAY ==
--- NOTE | 2024-08-17 07:17 | A.OFFPC_ITS ---
Intake Visit Reasons: discuss medication/RMV form Allergies hydrocodone [HYDROCODONE] Allergy (Unknown, Verified 08/17/24 07:48) SEVERE HEADACHE oxycodone [OXYCODONE] Allergy (Unknown, Verified 08/17/24 07:48) SEVERE HEADACHE latex [LATEX] Adverse Reaction (Mild, Verified 08/17/24 07:48) RASH morphine [MORPHINE] Adverse Reaction (Unknown, Verified 08/17/24 07:48) HEADACHES Medication List - Last Reconciled 08/17/24 by CONSTANCE Sevilla acetaminophen 500 mg PO Q6H PRN albuterol sulfate 90 mcg/actuation (Ventolin HFA) 1 inh inhalation QID PRN buspirone 10 mg PO BID 30 days calcium carbonate 500 mg PO BID PRN gabapentin 100 mg PO DAILY 30 days hydroxyzine HCl 50 mg PO BID ibuprofen 600 mg PO Q8H PRN 30 days sumatriptan succinate 50 mg PO Q2-4H PRN 30 days Tobacco use date assessed: 12/05/23 Dental Screening Dental Screen Date: 12/05/23 HPI discuss medication/RMV form HPI Details Pt c/o left hip pain. She is seeing ortho for this and going to PT. Pt has had injections which have not helped. XR showed distal gluteal calcific tendinitis, new when compared to the prior radiographs. Mild left hip osteoarthritis, unchanged. Will order MRI. Pt reports a pruritic rash, ? if related to injection. Pt c/o increased anxiety. She is currently taking buspirone 5mg bid. Will increase this to 10mg bid. Denies any SI and HI. Pt will contact me with any worsening /ongoing symptoms to skin (reaction). Denies any s/s of cellulitis [facility] Medical History Iliotibial band syndrome affecting left lower leg Lumbago Anxiety and depression Endometriosis Cervical neck pain with evidence of disc disease Left fibular fracture Left tibial fracture Right ovarian cyst Constipation Migraines Asthma Surgical History Hx of tubal ligation Hx of tubal ligation History of oophorectomy, unilateral History of eye surgery History of surgery History of fracture of leg History of bunionectomy History of section Hx of cholecystectomy History of tendonitis Family History Father No problems noted. Mother No problems noted. Brother No problems noted. Brother No problems noted. Sister No problems noted. Maternal Grandfather No problems noted. Maternal Grandmother No problems noted. Paternal Grandfather No problems noted. Paternal Grandmother No problems noted. Daughter No problems noted. Son No problems noted. Paternal Aunt Breast cancer Maternal Aunt Lung cancer Social History Housing: House Alcohol intake: never Patient Tobacco Use Status: Never used Tobacco e-Cigarette/Vaping Use: Never Used Second Hand Smoke Exposure: No service: No Current occupational status: unemployed and disabled Cognitive needs: No Hearing needs: No Vision needs: No Questionnaire Thrive Questionnaire Date Thrive assessed: 12/05/23 SHERRY-7 AMB Questionnaire SHERRY-7 Date SHERRY - 7 assessed: 12/05/23 Source: Developed by Drs. Sagar Tavarez, Melissa Menard, Danilo Ceja and colleagues, with an educational jannette from [employer]. Review of Systems Const Reports as per HPI Physical exam (Primary Care) Tobacco/Smoking Status: Tobacco use Status Tobacco use date assessed 12/05/23 08/17/24 07:18 Patient Tobacco Use Status Never used Tobacco 08/17/24 07:18 e-Cigarette/Vaping Use Never Used 08/17/24 07:18 Thrive Assessment: Date of Thrive Assessment Date Thrive assessed 12/05/23 08/17/24 07:18 Const General: cooperative Orientation/consciousness: patient oriented x3 Neuro General: patient oriented x3 Psych Appearance: grossly normal Mental Status: mental status grossly normal Speech and movement: Normal speech and movement present Affect: normal affect Attitude: cooperative Thought process: Normal thought process present Thought content: Normal thought content present Insight: Good insight present (Psych) Judgement: Good judgement present (Psych) Telehealth Telehealth Telehealth Platform: [facility] Location of provider rendering services: practice address Location of patient: address on file Patient Identification confirmed using: Name, : Yes Telehealth method: video Patient verbally consented to treatment: Yes Patient verbally consented to billing insurance company: Yes Patient informed of any privacy concerns related to visit: Yes Minutes spent on Phone/Video with Pt.: 10 Assessment and Plan Assessment & Plan (1) Chronic left hip pain: Code(s): M25.552 - Pain in left hip; G89.29 - Other chronic pain Plan: Seeing ortho and PT, recently had a hip injection, MRI ordered (2) Dermatitis: Code(s): L30.9 - Dermatitis, unspecified Plan: may use benadryl, not tender with touch, no signs of cellulitis, pt will contact me/seek medical attention with any worsening symptoms Plan The patient agreed to the use of a medical art therapist for this encounter. Scribed for HAROON Galindo- by Stacey Rice medical art therapist, on 08/17/2024 at 07:20 EST. Orders: Orders MR hip LT wo con Today M25.552 - Pain in left hip Medications: Changed From buspirone 5 mg PO BID 180 tabs 1RF To buspirone 10 mg PO BID 60 tabs 1RF 30 days From gabapentin 100 mg PO DAILY 30 days 30 caps 2RF To gabapentin 300 mg PO DAILY 30 caps 2RF 30 days Coding Level of Care Code Tele Est Pt Level 3 (51457) Diagnoses Chronic left hip pain M25.552; G89.29 Dermatitis L30.9
== END 2024-08-17 08:31 | disposition home or self-care (01) ==
LOC: HO.HMCC 07:36
PROVIDERS: PCP Nurse Practitioner Family; Visit Provider Nurse Practitioner Family
DX: M25.552 Pain in left hip (principal); G89.29 Other chronic pain; L30.9 Dermatitis, unspecified

== ENCOUNTER → 2024-08-17 07:36 | Outpatient (BNVA) | payer MEDICARE, MEDICAID, SELFPAY | PROVIDERS: PCP Nurse Practitioner Family; Visit Provider Nurse Practitioner Family | DX: M25.552 Pain in left hip (principal) ==

== ENCOUNTER 2024-09-11 08:44 | Outpatient (AMB) | payer MEDICARE, MEDICAID, SELFPAY ==
--- NOTE | 2024-09-11 08:49 | MHC.OFFVIS ---
Vital Signs 09/11/24 08:50 Height 5 ft 5 in Weight 164 lb BMI 27.3 BP 104/68 Blood Pressure Location Lt brachial Position Sitting Respiration 15 Pulse 84 Pulse Source Pulse Oximeter Pulse Oximetry (%) 98 Oxygen Delivery Method Room Air Intake Visit Reasons: s/p left hip inj Allergies hydrocodone [HYDROCODONE] Allergy (Unknown, Verified 09/11/24 08:51) SEVERE HEADACHE oxycodone [OXYCODONE] Allergy (Unknown, Verified 09/11/24 08:51) SEVERE HEADACHE latex [LATEX] Adverse Reaction (Mild, Verified 09/11/24 08:51) RASH morphine [MORPHINE] Adverse Reaction (Unknown, Verified 09/11/24 08:51) HEADACHES Medication List - Last Reconciled 09/11/24 by Fadia Ramirez LPN acetaminophen 500 mg PO Q6H PRN albuterol sulfate 90 mcg/actuation (Ventolin HFA) 1 inh inhalation QID PRN buspirone 10 mg PO BID 30 days calcium carbonate 500 mg PO BID PRN gabapentin 300 mg PO DAILY 30 days hydroxyzine HCl 50 mg PO BID ibuprofen 600 mg PO Q8H PRN 30 days lorazepam 1 mg PO ONCE PRN 1 day sumatriptan succinate 50 mg PO Q2-4H PRN 30 days HPI HPI s/p left hip inj: Details: 49-year-old female who presents today to the office for a status post left hip injection. She had some soreness at the injection site after the injection. She has done traveling post hip injection and has not experienced any pain. She states that she used to sit for 6-7 hours in truck while traveling and experienced worsening of the pain. She fractured her leg in the past and had some gait abnormalities for four years. She also has a history of arthritis in the hip and herniated disc in her lower back. She is scheduled for an MRI scan on 09/17/2024. She tried physical therapy exercises which worsened her pain. Her x-ray of the hip was reviewed today. 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 Then she used to work in [employer] in [place] department but left due to prolonged standing which worsened her pain. Past procedure : Left hip intra-articular ultrasound-guided injection corticosteroid: >60% relief. [facility] Medical History Iliotibial band syndrome affecting left lower leg Lumbago Anxiety and depression Endometriosis Cervical neck pain with evidence of disc disease Left fibular fracture Left tibial fracture Right ovarian cyst Constipation Migraines Asthma Surgical History Hx of tubal ligation Hx of tubal ligation History of oophorectomy, unilateral History of eye surgery History of surgery History of fracture of leg History of bunionectomy History of section Hx of cholecystectomy History of tendonitis Family History Father No problems noted. Mother No problems noted. Brother No problems noted. Brother No problems noted. Sister No problems noted. Maternal Grandfather No problems noted. Maternal Grandmother No problems noted. Paternal Grandfather No problems noted. Paternal Grandmother No problems noted. Daughter No problems noted. Son No problems noted. Paternal Aunt Breast cancer Maternal Aunt Lung cancer Social History Housing: House Alcohol intake: never Patient Tobacco Use Status: Never used Tobacco e-Cigarette/Vaping Use: Never Used Second Hand Smoke Exposure: No service: No Current occupational status: unemployed and disabled Cognitive needs: No Hearing needs: No Vision needs: No Review of Systems Const All systems reviewed & are unremarkable except as noted in HPI and below Physical Exam Vital Signs: Last Vital Signs Pulse 84 09/11/24 08:50 Resp 15 09/11/24 08:50 BP 104/68 09/11/24 08:50 Pulse Ox 98 09/11/24 08:50 Oxygen Delivery Method Room Air 09/11/24 08:50 BMI result Body Mass Index 27.3 General: Appears afebrile. Alert and oriented. Mood and affect appropriate. Follows and participates in conversation appropriately. Respiratory effort is unlabored. Able to transition from sit to stand unassisted. Ambulates with bilaterally normal heel strike and toe off. Results Reviewed Results Reviewed: 07/01/24: XR HIP, LEFT FINDINGS: No acute fracture or dislocation. Mild left hip joint space narrowing with small marginal osteophytes, unchanged. No osseous erosion. No evidence of a vascular necrosis. New calcification within the soft tissues adjacent to the greater trochanter measuring up to 1.4 cm, consistent with distal gluteal calcific tendinitis. IMPRESSION: 1. Distal gluteal calcific tendinitis, new when compared to the prior radiographs. 2. Mild left hip osteoarthritis, unchanged. Assessment & Plan Assessment & Plan (1) Chronic left hip pain: Code(s): M25.552 - Pain in left hip; G89.29 - Other chronic pain Category: Medical Plan Discussed local anesthetics vs. steroid injections vs. prolotherapy with dextrose vs. PRP injections as possible treatment options for her hip pain. We will schedule her for a left hip injection with half dose steroid, US guided. Discussed the risks and benefits of the procedure with the patient in detail. All questions were answered. The patient is on board with the plan. We will also review the MRI scan result once it is completed. Justification for interventional therapy: ? Patient with average pain > 6/10 ? Patient has exhausted conservative therapy. ? Actively performing physical therapy. ? Previous injection provided >50% relief x > 2 weeks. . Patient has a good understanding of their pain condition and has appropriate mental and social support Scribed for Dr. Navarrete by Giovany Mclain, medical records auditor, on 09/11/2024. I, Dr. Navarrete, have personally reviewed and agree with the information entered by the scribe. Coding Level of Care Code Procedure Only Diagnoses Chronic left hip pain M25.552; G89.29
[2024-09-11 08:50] VITALS: BP 104/68; PULSE 84; RESP 15; O2SAT 98; BMI 27.3
== END 2024-09-11 09:06 | disposition home or self-care (01) ==
PROVIDERS: PCP Nurse Practitioner Family; Visit Provider Internal Medicine
DX: M25.552 Pain in left hip (principal); G89.29 Other chronic pain
CPT/HCPCS: 99214

== ENCOUNTER → 2024-09-11 08:44 | Outpatient (BNVA) | payer MEDICARE, MEDICAID, SELFPAY | PROVIDERS: PCP Nurse Practitioner Family; Visit Provider Internal Medicine | DX: M25.552 Pain in left hip (principal); G89.29 Other chronic pain | CPT/HCPCS: 99212 ==

== ENCOUNTER → 2024-09-17 07:51 | Outpatient (BNV) | payer MEDICARE, MEDICAID, SELFPAY | PROVIDERS: PCP Nurse Practitioner Family; Visit Provider Radiology Diagnostic Radiology | DX: M25.552 Pain in left hip (principal) | CPT/HCPCS: 73721 ==

== ENCOUNTER 2024-09-17 07:53 | Outpatient (REF) | payer MEDICARE, MEDICAID, SELFPAY ==
--- NOTE | ~2024-09-17 | MR_ITS ---
EXAMINATION: MR HIP WITHOUT CONTRAST, LEFT CLINICAL INFORMATION: Left hip pain. COMPARISON: Correlated to x-ray dated July 01, 2024. TECHNIQUE: MRI of the left hip was obtained using routine sequences on a high-field magnet. FINDINGS: Submitted for interpretation on September 30, 2024. Bone marrow inhomogeneity. No bone marrow STIR/T2 fat sat signal abnormality. There is a hyperintense T2 signal abnormality at the lateral aspect of the greater trochanter involving the tendon insertion of the gluteus medius and possibly gluteus minimus. The left coxofemoral joint is intact. There is no capsular joint effusion. No bone marrow signal abnormality in the left ischium. The muscles are grossly intact. No signal abnormality in the left inguinal canal. Multiple nabothian cysts in the cervix. No free fluid in the included pelvic cavity.. MR/MR hip LT wo con IMPRESSION: Consenting tendinitis/tendinopathy gluteus medius and likely minimus. No acute fracture or dislocation. Calcium metabolic disorder cannot be excluded. Electronically signed by: Kirit Watson MD 09/30/2024 08:57 AM VERÓNICA LEWIS
== END 2024-09-17 07:54 | disposition home or self-care (01) ==
LOC: HO.MRI 07:53
PROVIDERS: PCP Nurse Practitioner Family; Visit Provider Nurse Practitioner Family
DX: M25.552 Pain in left hip (principal)
CPT/HCPCS: 73721

== ENCOUNTER 2024-09-30 09:31 | Outpatient (AMB) | payer MEDICARE, MEDICAID, SELFPAY ==
[2024-09-30 09:44] VITALS: BP 113/69; PULSE 80; RESP 15; O2SAT 98; BMI 27.3
--- NOTE | 2024-09-30 09:44 | A.OFFVIS_ITS ---
Vital Signs 09/30/24 09:44 Height 5 ft 5 in Weight 164 lb BMI 27.3 BP 113/69 Blood Pressure Location Lt brachial Position Sitting Respiration 15 Pulse 80 Pulse Source Pulse Oximeter Pulse Oximetry (%) 98 Oxygen Delivery Method Room Air Intake Visit Reasons: Left Hip Injection Allergies hydrocodone [HYDROCODONE] Allergy (Unknown, Verified 09/30/24 09:45) SEVERE HEADACHE oxycodone [OXYCODONE] Allergy (Unknown, Verified 09/30/24 09:45) SEVERE HEADACHE latex [LATEX] Adverse Reaction (Mild, Verified 09/30/24 09:45) RASH morphine [MORPHINE] Adverse Reaction (Unknown, Verified 09/30/24 09:45) HEADACHES Medication List - Last Reconciled 09/30/24 by Fadia Ramirez LPN acetaminophen 500 mg PO Q6H PRN albuterol sulfate 90 mcg/actuation (Ventolin HFA) 1 inh inhalation QID PRN buspirone 10 mg PO BID 30 days calcium carbonate 500 mg PO BID PRN gabapentin 300 mg PO DAILY 30 days hydroxyzine HCl 50 mg PO BID ibuprofen 600 mg PO Q8H PRN 30 days lorazepam 1 mg PO ONCE PRN 1 day sumatriptan succinate 50 mg PO Q2-4H PRN 30 days HPI HPI Left Hip Injection: Details: 49-year-old female who presents today to the office for left GTB injection. Patient reports she had received a cortisone shot in July, prior to the vacation which provided mild relief. She had an MRI done recently, and is awaiting the results. She reports soreness in the back associated with intermittent burning sensation on the sides. She is currently engaged in PT without much improvement. She recalls she had severe pain in the back to the point she was not able to sleep that day. She has tried hot compresses which provided some pain relief. Denies any recent cough, cold, infection, fever or other significant changes in medical history since last office visit. Past procedure 08/13/24: Left hip intra-articular ultrasound-guided injection corticosteroid:60-70% relief [facility] Medical History Iliotibial band syndrome affecting left lower leg Lumbago Anxiety and depression Endometriosis Cervical neck pain with evidence of disc disease Left fibular fracture Left tibial fracture Right ovarian cyst Constipation Migraines Asthma Surgical History Hx of tubal ligation Hx of tubal ligation History of oophorectomy, unilateral History of eye surgery History of surgery History of fracture of leg History of bunionectomy History of section Hx of cholecystectomy History of tendonitis Family History Father No problems noted. Mother No problems noted. Brother No problems noted. Brother No problems noted. Sister No problems noted. Maternal Grandfather No problems noted. Maternal Grandmother No problems noted. Paternal Grandfather No problems noted. Paternal Grandmother No problems noted. Daughter No problems noted. Son No problems noted. Paternal Aunt Breast cancer Maternal Aunt Lung cancer Social History Housing: House Alcohol intake: never Patient Tobacco Use Status: Never used Tobacco e-Cigarette/Vaping Use: Never Used Second Hand Smoke Exposure: No service: No Current occupational status: unemployed and disabled Cognitive needs: No Hearing needs: No Vision needs: No Review of Systems Const All systems reviewed & are unremarkable except as noted in HPI and below Physical Exam Vital Signs: Last Vital Signs Pulse 80 09/30/24 09:44 Resp 15 09/30/24 09:44 BP 113/69 09/30/24 09:44 Pulse Ox 98 09/30/24 09:44 Oxygen Delivery Method Room Air 09/30/24 09:44 BMI result Body Mass Index 27.3 General: Appears afebrile. Alert and oriented. Mood and affect appropriate. Follows and participates in conversation appropriately. Respiratory effort is unlabored. Able to transition from sit to stand unassisted. Ambulates with bilaterally normal heel strike and toe off. Office Procedures AMB Joint Injection/Aspiration Joint Injection/Aspiration Details: Greater Trochanteric Bursa Injection, left, ultrasound guided. After informed written consent was obtained, the patient was placed in the lateral position. Pre-procedure oxygen saturation, heart rate, and blood pressure were recorded. The skin was prepped with Chloroprep, and draped in a sterile fashion. With the use of ultrasound, the greater trochanter was identified. A 21-gauge 80 mm needle was then advanced toward the trochanteric bursa under ultrasound visualization. Once in position, and after negative aspiration, 10 mg of Kenalog mixed with 0.2% ropivacaine (10mL total). There was no evidence of paresthesia throughout needle placement. The needle was withdrawn. The patient tolerated the procedure well and there was no evidence of procedural complications. The patient was observed in the procedure room for 20 minutes, vitals were stable, and discharged in stable condition. Procedure: The patient tolerated the procedure well Coding Details: An ultrasound image of the injection was taken and stored in the [facility] r ecord. 42217 - Glenohumeral/Tronchanteric Bursa/Intraarticular Procedure code (CPT) selection complete Results Reviewed Results Reviewed: 07/01/24: XR HIP, LEFT FINDINGS: No acute fracture or dislocation. Mild left hip joint space narrowing with small marginal osteophytes, unchanged. No osseous erosion. No evidence of a vascular necrosis. New calcification within the soft tissues adjacent to the greater trochanter measuring up to 1.4 cm, consistent with distal gluteal calcific tendinitis. IMPRESSION: 1. Distal gluteal calcific tendinitis, new when compared to the prior radiographs. 2. Mild left hip osteoarthritis, unchanged. Assessment & Plan Assessment & Plan (1) Chronic left hip pain: Code(s): M25.552 - Pain in left hip; G89.29 - Other chronic pain Category: Medical (2) Tendinopathy of left gluteus medius: Code(s): M67.952 - Unspecified disorder of synovium and tendon, left thigh Category: Medical (3) Greater trochanteric pain syndrome: Code(s): M25.559 - Pain in unspecified hip Category: Medical Plan Patient is status post left GTB injection, US-guided. Patient tolerated procedure well and was discharged home in stable condition with discharge instructions. All questions were answered. Suspecting pain is most likely due to tendinopathy of the gluteus medius muscle. Recommended PT and dry needling. Discussed PRP injections vs shock wave therapy vs dextrose injection as possible treatment options. Will consider further management based on the efficacy of GTB injection that was done today. Scribed for Dr. Navarrete by khushi Shah scribe, on 09/30/2024. I, Dr. Navarrete, have personally reviewed and agree with the information entered by the scribe. Coding Level of Care Code Est Pt Level 3 (58994) Diagnoses Chronic left hip pain M25.552; G89.29 Tendinopathy of left gluteus medius M67.952 Greater trochanteric pain syndrome M25.559 CPT Codes Coding - Joint 7: 22032 - Glenohumeral/Tronchanteric Bursa/Intraarticular ([id number])
== END 2024-09-30 10:13 | disposition home or self-care (01) ==
PROVIDERS: PCP Nurse Practitioner Family; Visit Provider Internal Medicine
DX: M25.552 Pain in left hip (principal)
CPT/HCPCS: 20611

== ENCOUNTER → 2024-09-30 09:31 | Outpatient (BNVA) | payer MEDICARE, MEDICAID, SELFPAY | PROVIDERS: PCP Nurse Practitioner Family; Visit Provider Internal Medicine | DX: M16.12 Unilateral primary osteoarthritis, left hip (principal); M67.952 Unspecified disorder of synovium and tendon, left thigh; G89.29 Other chronic pain | CPT/HCPCS: 20611; J2795; J3301 ==

== ENCOUNTER 2025-01-30 18:55 | Emergency (ER) | payer MEDICARE, MEDICAID, SELFPAY ==
--- NOTE | ~2025-01-30 | US_ITS ---
CLINICAL HISTORY: pain, swelling Venous duplex ultrasound right lower extremity Comparison: None Findings: The visualized deep veins are fully compressible with normal Doppler color flow and spectral tracings. 1.7 cm popliteal cyst. IMPRESSION: 1. Negative for right lower extremity deep vein thrombosis. This document has been electronically signed by: Almas Wahl MD on 01/30/2025 21:43:01
--- NOTE | 2025-01-30 19:07 | ED.GENADULT ---
HPI - General Adult General Chief complaint: Extremity Injury, Lower Stated complaint: Pain in back of R calf Time Seen by Provider: 01/30/25 19:48 History of Present Illness ED Provider: QUINTIN HPI narrative: 3 days of pain posterior R knee/calf. epigastric pain Related Data Home Medications ?Medication ?Instructions ?Recorded ?Confirmed hydroxyzine HCl 50 mg tablet 50 mg PO BID 07/04/21 09/30/24 acetaminophen 500 mg tablet 500 mg PO Q6H PRN HEADACHES 02/22/22 09/30/24 calcium carbonate 500 mg PO BID PRN Acid Reflux 02/22/22 09/30/24 Previous Rx's ?Medication ?Instructions ?Recorded sumatriptan succinate 50 mg tablet 50 mg PO Q2-4H PRN migraine 08/16/21 headache 30 days #14 tabs albuterol sulfate 90 mcg/actuation 1 inh inhalation QID PRN shortness 02/26/23 aerosol inhaler (Ventolin HFA) of breath or wheezing #8.5 grams ibuprofen 600 mg tablet 600 mg PO Q8H PRN pain 30 days #90 04/14/24 tabs gabapentin 300 mg capsule 300 mg PO DAILY 30 days #30 caps 08/17/24 lorazepam 1 mg tablet 1 mg PO ONCE PRN anxiety/MRI 1 day 09/08/24 #2 tabs buspirone 10 mg tablet 10 mg PO BID 30 days #60 tabs 10/14/24 Allergies Allergy/AdvReac Type Severity Reaction Status Date / Time hydrocodone [HYDROCODONE] Allergy Unknown SEVERE Verified 01/30/25 19:10 HEADACHE oxycodone [OXYCODONE] Allergy Unknown SEVERE Verified 01/30/25 19:10 HEADACHE latex [LATEX] AdvReac Mild RASH Verified 01/30/25 19:10 morphine [MORPHINE] AdvReac Unknown HEADACHES Verified 01/30/25 19:10 PMFSH Past Medical History Medical History Iliotibial band syndrome affecting left lower leg Lumbago Anxiety and depression Endometriosis Cervical neck pain with evidence of disc disease Left fibular fracture Left tibial fracture Right ovarian cyst Constipation Migraines Asthma Surgical History Hx of tubal ligation Hx of tubal ligation History of oophorectomy, unilateral History of eye surgery History of surgery History of fracture of leg History of bunionectomy History of section Hx of cholecystectomy History of tendonitis Family History Family History Father No problems noted. Mother No problems noted. Brother No problems noted. Brother No problems noted. Sister No problems noted. Maternal Grandfather No problems noted. Maternal Grandmother No problems noted. Paternal Grandfather No problems noted. Paternal Grandmother No problems noted. Daughter No problems noted. Son No problems noted. Paternal Aunt Breast cancer Maternal Aunt Lung cancer Social History Social History Housing: House Alcohol intake: never Patient Tobacco Use Status: Never used Tobacco Smoked in Last 30 Days: No e-Cigarette/Vaping Use: Never Used Second Hand Smoke Exposure: No Use of substances other than those prescribed or required for medical reasons: No Advance Directives: No Advance Directives Information Provided: Yes Do you have a plan to hurt others: No Plan Patient : No service: No Current occupational status: unemployed and disabled Cognitive needs: No Hearing needs: No Vision needs: No Physical Exam ED Vital Signs: Vital Signs - 24 hr 01/30/25 19:09 01/30/25 20:29 01/30/25 22:08 Temperature 98.6 F 97.8 F 98.2 F Pulse Rate 88 77 72 Respiratory Rate 16 19 20 Blood Pressure 134/84 127/74 112/80 Pulse Oximetry 100 100 99 Oxygen Delivery Method Room Air Room Air Room Air 01/30/25 22:10 Temperature 98.2 F Pulse Rate 72 Respiratory Rate 20 Blood Pressure 112/80 Pulse Oximetry 99 Oxygen Delivery Method Room Air BMI result Body Mass Index 28.9 Const General: healthy appearing and comfortable Eyes General: appearance normal, both eyes and all related structures Visual Colin: normal visual colin by confrontation Chest Chest palpation & inspection: normal inspection of the chest Resp Effort & Inspection: normal respiratory effort and able to speak in complete sentences Auscultation: clear to auscultation bilaterally Cardio Jugular venous distension: no JVD Palpation: normal PMI Rate: regular rate Rhythm: regular rhythm Heart sounds: S1 normal heart sound present and S2 normal heart sound present GI Inspection: Yes normal to inspection Percussion: Yes normal to percussion Auscultation: normal bowel sounds Extrem Other: tender posterior prox R calf and pop no edema , redness Course Course Course Narrative: RME performed by Fadia Marlow PA-C. Patient is a 49 year old assigned female at presenting to the emergency department with right knee pain. Patient states that she is having right lower leg and knee pain with bruising. Detailed physical exam and review of systems are deferred to the statement distribution clerk. Imaging ordered. Patient placed back in the waiting room pending room availability and results. Medications Administered Discontinued Medications Generic Name Dose Route Start Last Admin Trade Name Freq PRN Reason Stop Dose Admin Al Hydroxide/Mg Hydroxide 15 ml 01/30/25 20:45 01/30/25 21:15 Magnesium Hydrox/Alum Hydrox 30 Ml Oral.Susp PO 01/30/25 20:46 15 ml ONCE ONE Administration Omeprazole 20 mg 01/30/25 20:45 01/30/25 21:15 Omeprazole 20 Mg Capsule.Dr PO 01/30/25 20:46 20 mg ONCE ONE Administration Medical Decision Making Medical Decision Making [facility] Narrative: DYLAN IS A 49-YEAR-OLD FEMALE WITH SEVERAL DAYS OF LOWER POSTERIOR RIGHT KNEE PAIN SHE HAD MILD TENDERNESS BEHIND THE RIGHT KNEE AND UPPER CALF MUSCULATURE. NO OBJECTIVE SWELLING REDNESS SKIN BREAKDOWN. ULTRASOUND SHOWS VALDEZ CYST NO DVT. D-DIMER NEGATIVE. REGARDING HER UPPER ABDOMINAL /CHEST DISCOMFORT THIS WAS VAGUE INTERMITTENT THROUGHOUT THE DAY SHE HAS HAD HISTORY OF GERD PREVIOUSLY WAS ON PPI SHE IS NO LONGER ON THIS. NO VOMITING NO SOUR TASTE IN HER MOUTH. CONSIDERED BUT FELT VERY UNLIKELY TO REPRESENT ACS I ADVISED HER TO CALL HER PCP DISCUSS HER SYMPTOMS TO DISCUSS OUTPATIENT WORKUP IF THEY PERSIST Lab Data 01/30/25 19:22 01/30/25 19:22 Labs: Lab Results 01/30/25 Range/Units 19:22 WBC 5.5 (4.8-10.8) X10*3/uL RBC 4.55 (4.20-5.50) X10*6/uL Hgb 13.6 (12.0-16.0) g/dl Hct 38.9 (37.0-47.0) % MCV 85.5 (80.0-98.0) fL MCH 29.9 (27.0-33.0) pg MCHC 35.0 (31.0-35.0) g/dl RDW 13.2 (11.0-16.0) % Plt Count 238 (160-400) X10*3/uL MPV 8.3 L (9.4-12.3) fL Immature Gran % (Auto) 0.2 (0.0-0.4) % Neut % (Auto) 51.4 (45-73) % Lymph % (Auto) 37.3 (20-40) % [place] % (Auto) 8.5 (2-11) % Eos % (Auto) 1.1 (0-4) % Baso % (Auto) 1.5 (0-2) % Lymph # (Auto) 2.1 (1.2-4.9) X10*3/uL [place] # (Auto) 0.5 (0.1-1.2) X10*3/uL Eos # (Auto) 0.1 (0.0-0.4) X10*3/uL Baso # (Auto) 0.1 (0.0-0.2) X10*3/uL Abs Immat Gran (auto) 0.01 (0.00-0.03) X10*3/uL Absolute Neuts (auto) 2.8 (2.0-8.3) x10*3/uL Absolute Nucleated RBC 0.000 (0.0-0.012) X10*3/uL Nucleated RBC % (auto) 0.0 (0.0-0.2) /100WBC PT 9.9 L (10.9-12.4) SEC INR 0.9 (0.9-1.1) D-Dimer High Sensitivty < 150 NG/ML Sodium 141 (135-145) mmol/L Potassium 4.8 (3.3-5.1) mmol/L Chloride 108 (96-108) mmol/L Carbon Dioxide 25 (22-29) mmol/L Anion Gap 13 (12-20) BUN 14 (9-16) mg/dL Creatinine 0.88 (0.5-1.4) mg/dL Estim Creat Clear Calc 80.2 Estimated GFR > 60 Random Glucose 93 (60-115) mg/dL Calcium 9.6 (8.4-10.2) mg/dL Magnesium 2.0 (1.6-2.6) mg/dL Total Bilirubin 0.3 (0.0-1.0) mg/dL AST 21 (5-31) U/L ALT 30 (0-31) U/L Alkaline Phosphatase 42 (39-117) U/L Troponin I High Sens < 2.7 (<3.5-17.0) ng/L Total Protein 7.2 (6.5-8.0) g/dL Albumin 4.1 (3.5-5.0) g/dL Independent Interpretation I performed an independent interpretation of an: EKG Interpretation: SINUS RHYTHM RATE 66, MT 142 QTC NORMAL. NO ACUTE ISCHEMIC CHANGES NO RV STRAIN Discharge Plan Discharge Clinical Impression: Valdez cyst Patient Disposition: Home, Self-Care Instructions: [facility] Cyst (ED) Additional Instructions: DISCHARGE DIAGNOSES: POSTERIOR KNEE PAIN ON THE RIGHT SIDE LIKELY SECONDARY TO IDENTIFIED VALDEZ'S CYST. BLOOD CLOT HAS BEEN RULED OUT HISTORY OF PRESENTATION: PAIN DISCOMFORT BEHIND THE RIGHT LEG MILD DISCOMFORT IN THE UPPER ABDOMEN /CHEST EMERGENCY DEPARTMENT COURSE,TESTS, TREATMENTS: WHILE IN THE ED TODAY YOU HAD AN EKG WHICH WAS NORMAL AND REASSURING WE GAVE YOU GI MEDICATIONS INCLUDING MAALOX. YOU HAD AN ULTRASOUND OF YOUR LEG WHICH SHOWED A VALDEZ'S CYST WE DISCUSSED SEE THE ATTACHED DETAILED INSTRUCTIONS. YOU CAN TRY ELEVATION IBUPROFEN NEEDED FOR PAIN SAMMIE WRAP AROUND THE KNEE OR HEATING PAD DISCHARGE MEDICATIONS: [WE HAVE MADE NO CHANGES TO YOUR REGULAR MEDICATION REGIMEN] FOLLOW-UP: CALL YOUR PRIMARY OR GENERAL PHYSICIAN SOON POSSIBLE TO DISCUSS YOUR SYMPTOMS, YOUR ED VISIT AND TO DISCUSS FOLLOW UP PLANS CALL ORTHOPEDICS FOR FOLLOW UP INSTRUCTIONS & RETURN PRECAUTIONS: IF ANY SYMPTOMS CHANGE FIRST CALL YOUR PRIMARY PHYSICIAN, IF IT IS AFTER-HOURS YOUR PRIMARY DOCTORS OFFICE SHOULD HAVE A PROVIDER ON SITE COORDINATOR YOU CAN SPEAK WITH. IF THE SYMPTOMS ARE SEVERE OR VERY CONCERNING TO YOU THEN CALL 911 OR RETURN TO THE ED. MARTI CAPELLAN MD EMERGENCY PHYSICIAN [facility] Prescriptions: No Action sumatriptan succinate 50 mg tablet 50 mg PO Q2-4H PRN (Reason: migraine headache) 30 Days Qty: 14 8RF Rx Instructions: do not exceed 4 doses per 24 hrs ibuprofen 600 mg tablet 600 mg PO Q8H PRN (Reason: pain) 30 Days Qty: 90 2RF lorazepam 1 mg tablet 1 mg PO ONCE PRN (Reason: anxiety/MRI) 1 Days Qty: 2 0RF Rx Instructions: please take one tab 1 hr before procedure. May repeat x1 tab if first tab does not work. CANNOT DRIVE WHILE ON MEDICATION buspirone 10 mg tablet 10 mg PO BID 30 Days Qty: 60 1RF acetaminophen 500 mg Tablet 500 mg PO Q6H PRN (Reason: HEADACHES) calcium carbonate 500 mg calcium (1,250 mg) Tablet,Chewable 500 mg PO BID PRN (Reason: Acid Reflux) hydroxyzine HCl 50 mg tablet 50 mg PO BID albuterol sulfate [Ventolin HFA] 90 mcg/actuation HFA aerosol inhaler 1 inh inhalation QID PRN (Reason: shortness of breath or wheezing) Qty: 8.5 1RF gabapentin 300 mg capsule 300 mg PO DAILY 30 Days Qty: 30 2RF [place] [facility] [place] [Provider Group] - 1 week Interventions: ED Discharge Assessment Last Done: 01/30/25 22:10 Discharge Date/Time: 01/30/25 22:10 Print Language: Malian
--- NOTE | 2025-01-30 19:08 | ECG_ITS ---
Test Reason : chest pain Blood Pressure : */* mmHG Vent. Rate : 76 BPM Atrial Rate : 76 BPM P-R Int : 142 ms QRS Dur : 90 ms QT Int : 356 ms P-R-T Axes : 50 45 13 degrees QTcB Int : 400 ms Normal sinus rhythm Normal ECG When compared with ECG of 11-Oct-2020 14:54, No significant change was found Referred By: Fadia Marlow Electronically Signed By: ANA LUISA KENT
[2025-01-30 19:09] VITALS: BP 134/84; PULSE 88; RESP 16; TEMP 37; O2SAT 100; BMI 28.9
[2025-01-30 19:26] LABS: MANUAL DIFF FLAG NO
[2025-01-30 19:28] LABS: Basophils Absolute Auto 0.1 X10*3/uL (0.0-0.2); Basophils Percent Auto 1.5 % (0-2); Eosinophils Absolute Auto 0.1 X10*3/uL (0.0-0.4); Eosinophils Percent Auto 1.1 % (0-4); Hematocrit 38.9 % (37.0-47.0); Hemoglobin 13.6 g/dl (12.0-16.0); Imm Gran Abs Auto 0.01 X10*3/uL (0.00-0.03); Imm Gran Pct Auto 0.2 % (0.0-0.4); Lymphocytes Absolute Auto 2.1 X10*3/uL (1.2-4.9); Lymphocytes Percent Auto 37.3 % (20-40); Mean Corpuscular Hemoglobin 29.9 pg (27.0-33.0); Mean Corpuscular Volume 85.5 fL (80.0-98.0); Mean Platelet Volume 8.3 fL (9.4-12.3); Monocytes Absolute Auto 0.5 X10*3/uL (0.1-1.2); Monocytes Percent Auto 8.5 % (2-11); Neutrophils Absolute Auto 2.8 x10*3/uL (2.0-8.3); Neutrophils Percent Auto 51.4 % (45-73); Platelet Count 238 X10*3/uL (160-400); Red Blood Count 4.55 X10*6/uL (4.20-5.50); Red Cell Distribution Width 13.2 % (11.0-16.0); White Blood Count 5.5 X10*3/uL (4.8-10.8)
[2025-01-30 19:33] LABS: INTERNATIONAL NORM RATIO 0.9 (0.9-1.1); Prothrombin Time 9.9 SEC (10.9-12.4)
[2025-01-30 19:41] LABS: Alanine Aminotransferase 30 U/L (0-31); Albumin Level 4.1 g/dL (3.5-5.0); Alkaline Phosphatase 42 U/L (39-117); Anion Gap 13 (12-20); Aspartate Amino Transferase 21 U/L (5-31); Bilirubin Total 0.3 mg/dL (0.0-1.0); Blood Urea Nitrogen 14 mg/dL (9-16); Calcium 9.6 mg/dL (8.4-10.2); Carbon Dioxide 25 mmol/L (22-29); Chloride 108 mmol/L (96-108); Creatinine Clr Calc Pharmacy 80.2; Estimated Glomerular Filt Rate > 60; Glucose Random 93 mg/dL (60-115); Potassium 4.8 mmol/L (3.3-5.1); Sodium 141 mmol/L (135-145); Total Protein 7.2 g/dL (6.5-8.0)
[2025-01-30 19:50] LABS: Troponin-I High Sensitivity < 2.7 ng/L (<3.5-17.0)
[2025-01-30 20:29] VITALS: BP 127/74; PULSE 77; RESP 19; TEMP 36.6; O2SAT 100
[2025-01-30 21:09] LABS: D Dimer High Sensitivity < 150 NG/ML
[2025-01-30] MEDS: Magnesium Hydrox/Alum Hydrox 30 ML ORAL.SUSP 15 ML PO (21:15)
[2025-01-30] MEDS: Omeprazole 20 MG CAPSULE.DR PO (21:15)
--- NOTE | 2025-01-30 21:21 | PC.NURSE ---
pt A&ox4 , respirations even and unlabored. pt reports she woke up last night with right calf pain radiating up to her right thigh. pt able to ambulate without difficulty. pt noted to have hematoma to the back of right thigh but she denies any trauma. pt medicated per mar for intermittent chest pain.
[2025-01-30 22:08] VITALS: BP 112/80; PULSE 72; RESP 20; TEMP 36.8; O2SAT 99
[2025-01-30 22:10] VITALS: BP 112/80; PULSE 72; RESP 20; TEMP 36.8; O2SAT 99
== END 2025-01-30 22:10 | disposition home or self-care (01) ==
PROVIDERS: Physician Assistant Medical; Emergency Provider Emergency Medicine; PCP Nurse Practitioner Family
DX: M71.21 Synovial cyst of popliteal space [Baker], right knee (principal); M79.661 Pain in right lower leg; R07.9 Chest pain, unspecified
CPT/HCPCS: 36415; 80053; 83735; 84484; 85025; 85379; 85610; 93005; 93971; 99284

== ENCOUNTER → 2025-01-30 19:08 | Outpatient (BNV) | payer MEDICARE, MEDICAID, SELFPAY | PROVIDERS: Emergency Provider Emergency Medicine; PCP Nurse Practitioner Family; Visit Provider Internal Medicine | DX: R07.9 Chest pain, unspecified (principal) | CPT/HCPCS: 93010 ==

== ENCOUNTER → 2025-01-30 19:08 | Outpatient (BNV) | payer MEDICARE, MEDICAID, SELFPAY | PROVIDERS: Emergency Provider Emergency Medicine; PCP Nurse Practitioner Family; Visit Provider Student in an Organized Health Care Education/Training Program | DX: M79.661 Pain in right lower leg (principal); R22.41 Localized swelling, mass and lump, right lower limb | CPT/HCPCS: 93971 ==

== ENCOUNTER 2025-02-11 07:14 | Outpatient (AMB) | payer MEDICARE, MEDICAID, SELFPAY ==
--- NOTE | 2025-02-11 08:18 | MHC.PC.OV ---
Intake Visit Reasons: ED follow up - need referral Allergies hydrocodone [HYDROCODONE] Allergy (Unknown, Verified 01/30/25 19:10) SEVERE HEADACHE oxycodone [OXYCODONE] Allergy (Unknown, Verified 01/30/25 19:10) SEVERE HEADACHE latex [LATEX] Adverse Reaction (Mild, Verified 01/30/25 19:10) RASH morphine [MORPHINE] Adverse Reaction (Unknown, Verified 01/30/25 19:10) HEADACHES Tobacco use date assessed: 12/05/23 Dental Screening Dental Screen Date: 12/05/23 HPI ED follow up - need referral HPI Details History of Present Illness The patient is a 49-year-old female presenting with right knee pain, attributed to a confirmed Valdez's cyst. Her symptoms began leading to an emergency room visit on January 30, 2025, where posterior knee and calf pain prompted an ultrasound that identified the cyst. She initially noted associated ecchymosis on the lateral knee, which has since resolved, yet tenderness persists in the posterior knee area. She reports exacerbation of pain during extension movements of the knee though she can walk albeit with discomfort. The pain has not been accompanied by fever, chills, or significant localized redness. The Valdez's cyst's association with osteoarthritis or trauma to the knee joint necessitates further investigation. Review of Systems - Musculoskeletal: Reports tenderness in the right knee; denies any current or spreading redness. - General: Denies fever, chills. Plan The management for the Valdez's cyst involves obtaining a knee X-ray to examine for possible osteoarthritic changes or related trauma. An orthopedic referral is initiated for detailed evaluation and treatment recommendations. The treatment approach intends to provide symptom management while exploring any underlying joint issues contributing to the cyst's development. Discussion Notes During the consultation, I discussed the Valdez's cyst as the likely source of the patient's right knee pain and the plan for further diagnostic evaluation with an X-ray. I explained the possibility of underlying osteoarthritis or joint trauma as contributing factors, necessitating an orthopedic consultation for detailed assessment and management. The potential benefits of diagnostic imaging and specialist consultation were outlined, focusing on alleviating symptoms and addressing ongoing discomfort. I emphasized the importance of monitoring the symptoms closely and advised follow-up based on specialist recommendations, while reassuring the patient about the lack of acute distress or alarming symptoms like fever or spreading redness. Patient Instructions - Follow up with the recommended X-ray of your right knee. - Schedule an appointment with the guest specialist for further evaluation. - Monitor your knee for any new symptoms such as increased redness or swelling. - Report any worsening of pain or new symptoms immediately. - Engage in gentle movements and avoid strenuous activities that may exacerbate knee discomfort. [facility] Medical History Iliotibial band syndrome affecting left lower leg Lumbago Anxiety and depression Endometriosis Cervical neck pain with evidence of disc disease Left fibular fracture Left tibial fracture Right ovarian cyst Constipation Migraines Asthma Surgical History Hx of tubal ligation Hx of tubal ligation History of oophorectomy, unilateral History of eye surgery History of surgery History of fracture of leg History of bunionectomy History of section Hx of cholecystectomy History of tendonitis Family History Father No problems noted. Mother No problems noted. Brother No problems noted. Brother No problems noted. Sister No problems noted. Maternal Grandfather No problems noted. Maternal Grandmother No problems noted. Paternal Grandfather No problems noted. Paternal Grandmother No problems noted. Daughter No problems noted. Son No problems noted. Paternal Aunt Breast cancer Maternal Aunt Lung cancer Social History Housing: House Alcohol intake: never Patient Tobacco Use Status: Never used Tobacco e-Cigarette/Vaping Use: Never Used Second Hand Smoke Exposure: No service: No Current occupational status: unemployed and disabled Cognitive needs: No Hearing needs: No Vision needs: No Questionnaire Thrive Questionnaire Date Thrive assessed: 12/05/23 SHERRY-7 AMB Questionnaire SHERRY-7 Date SHERRY - 7 assessed: 12/05/23 Source: Developed by Drs. Sagar Tavarez, Melissa Menard, Danilo Ceja and colleagues, with an educational jannette from [employer]. Physical exam (Primary Care) Tobacco/Smoking Status: Tobacco use Status Tobacco use date assessed 12/05/23 08/17/24 07:18 Patient Tobacco Use Status Never used Tobacco 01/30/25 21:22 e-Cigarette/Vaping Use Never Used 08/17/24 07:18 Thrive Assessment: Date of Thrive Assessment Date Thrive assessed 12/05/23 08/17/24 07:18 Telehealth Telehealth Telehealth Platform: [employer] Location of provider rendering services: practice address Location of patient: address on file Patient Identification confirmed using: Name, : Yes Telehealth method: video Patient verbally consented to treatment: Yes Patient verbally consented to billing insurance company: Yes Patient informed of any privacy concerns related to visit: Yes Minutes spent on Phone/Video with Pt.: 12 Coding Level of Care Code Tele Est Pt Level 3 (79644) Diagnoses Right knee pain M25.561 Valdez cyst M71.20 Assessment & Plan Assessment & Plan (1) Right knee pain: Code(s): M25.561 - Pain in right knee Category: Medical (2) Valdez cyst: Code(s): M71.20 - Synovial cyst of popliteal space [Valdez], unspecified knee Category: Medical Plan . Orders: Orders XR knee RT 2V Today M25.561 - Pain in right knee Referrals Orthopedics Referral M25.561 - Pain in right knee, M71.20 - Synovial cyst of popliteal space [Valdez], unspecified knee
== END 2025-02-11 08:52 | disposition home or self-care (01) ==
LOC: HO.HMCC 07:14
PROVIDERS: PCP Nurse Practitioner Family; Visit Provider Nurse Practitioner Family
DX: M25.561 Pain in right knee (principal); M71.21 Synovial cyst of popliteal space [Baker], right knee

== ENCOUNTER 2025-02-15 11:33 | Outpatient (REF) | payer MEDICARE, MEDICAID, SELFPAY ==
--- NOTE | ~2025-02-15 | XR_ITS ---
EXAMINATION: XR KNEE, RIGHT CLINICAL INFORMATION: M25.561 - Pain in right knee COMPARISON: None available. TECHNIQUE: Two views of the right knee. FINDINGS: No acute cortical disruption or malalignment. There is mild joint space narrowing involving mostly the medial compartment with associated sclerosis and the medial tibial plateau. No suprapatellar bursa joint effusion. No lytic or blastic lesions. XR/XR knee RT 2V IMPRESSION: Mild medial compartment osteoarthrosis. Electronically signed by: Kirit Watson MD 02/16/2025 02:19 PM EDT
--- OUTSIDE RECORDS SUMMARY | 2025-02-15 13:16 | XMS_ITS | Encounter Summary ---
Author Organization [employer] Address [address] [place] [address] Care Team Providers Care Auto Research Engineer Name Role Phone Unavailable Primary Care Provider Unavailabl e Reason for Visit * Reason Onset Date Comments final fee for appt 05/25/2024 Encounter Details Date Type Department Care Team (Late st Contact Info) Description 05/25/2024 Telephone [facility] [address] [place], [place] [phone] Ashleigh Cochran, DDS [address] [place], [place] [phone] final fee for appt Social History Tobacco Use Types Packs/Day Years Used Date Smoking Tobacco: Never Smokeless Tobacco: Never Comments Unknown Sex and Gender Information Value Date Recorded Sex Assigned at Female 09/17/2022 10:18 AM EDT Legal Sex Female 10:18 AM EDT Gender Identity Female 09/17/2022 10:18 AM EDT Sexual Orientation Straight 09/17/2022 10 :18 AM EDT documented as of this encounter Miscellaneous Notes * Telephone Encounter - Stacie Nix - 05/25/2024 11:30 AM EDT Patient would like to get a call with final feel for delivery appt on 05/28. Pls reach out to patient with amount for payment. documented in this encounter Plan of Treatment Not on file documented as of this encounter Visit Diagnoses Not on filedocumented in this encounter
--- OUTSIDE RECORDS SUMMARY | 2025-02-15 13:16 | XMS_ITS | Clinical Summary ---
Author Organization [employer] [facility] Address [address] [place] [address] [address] [place] [address] Care Team Providers Care Slat Pickler Name Role Phone Unavailable Primary Care Provider Unavailabl e Allergies Active Allergy Reactions Criticality Noted Date Comments Latex 07/01/2015 Oxycodone 04/23/2014 Wound Dressing Adhesive 09/01/2019 Medications gabapentin (Neurontin) 100 MG capsule Take 100 mg by mouth in the morning. 3 Active albuterol 108 (90 Base) MCG/ACT inhaler INHALE 1 PUFF 4 TIMES A DAY NEEDED FOR SHORTNESS OF BREATH OR WHEEZING 3 Active metroNIDAZOLE (Metrocream) 0.75 % cream APPLY TO THE FACE ONCE TO TWICE DAILY. 3 Active acetaminophen (Tylenol) 325 MG capsule Take 325 mg by mouth. 0 Active Active Problems Problem Noted Date Diagnosed Date Light headed 05/14/2011 Lightheadedness 05/14/2011 Social History Tobacco Use Types Packs/Day Years Used Date Smoking Tobacco: Never Smokeless Tobacco: Never Tobacco Cessation:Counseling Given: Not Answered Comments Unknown Sex and Gender Information Value Date Recorded Sex Assigned at Female 09/17/2022 10:18 AM EDT Legal Sex Female 10:18 AM EDT Gender Identity Female 09/17/2022 10:18 AM EDT Sexual Orientation Straight 09/17/2022 10 :18 AM EDT Last Filed Vital Signs Vital Sign Reading Time Taken Comments Blood Pressure 113/65 08/05/2024 1:10 PM EDT Pulse 82 08/05/2024 1:10 PM EDT Temperature - - Respiratory Rate - - Oxygen Saturation - - Inhaled Oxygen Concentration - - Weight - - Height - - Body Mass Index - - Plan of Treatment Health Maintenance Due Date Last Done Comments CT Colonography 1975 Colonoscopy 1975 Colorectal Cancer Screening 1975 Dental X-Ray: Full Mouth 1975 Depression Screening 1975 FIT DNA/Cologuard 1975 FIT 1975 FOBT 1975 HIV Screening 1975 SDOH Screening 1975 Sigmoidoscopy 1975 Alcohol/Substance Use Screening 1987 Family Planning (PISQ) 1990 Hepatitis C Screening 1993 Hepatitis B Vaccines (1 of 3 - 19+ 3-dose series) 1994 Pap Smear 1996 Cervical Cancer Screening 2005 HPV/Cotest 2005 Mammogram 2015 Dental Oral Exam 10/24/2023 04/23/2023 COVID-19 Vaccine (1 - 2023-2 5 season) 2024 Influenza Vaccine (#1) 2024 Dental Prophylaxis 02/03/2025 08/05/2024, 01/16/2024 Dental X-Ray: Bitewings 05/02/2025 05/01/20 24, 04/23/2023 Zoster Vaccines (1 of 2) 2025 Tobacco Screening 09/08/2025 09/08/2024 DTaP/Tdap/Td Vaccines (2 - T d or Tdap) 11/03/2033 11/03/2023 RSV Patients and Patients Aged 60 years or older (1 - 1-dose 75+ series) 2050 HIB Vaccines Aged Out No longer eligi ble based on patient's age to complete this topic HPV Vaccines Aged Out No longer eligi ble based on patient's age to complete this topic Hepatitis A Vaccines Aged Out No long er eligible based on patient's age to complete this topic IPV Vaccines Aged Out No longer eligi ble based on patient's age to complete this topic Meningococcal Vaccine Aged Out No valeriy lee eligible based on patient's age to complete this topic Pneumococcal Vaccine: Pediatrics (0 to 5 Years) and At-Risk Patients (6 to 49) Years) Aged Out No longer eligible b ased on patient's age to complete this topic RSV under 20 months Aged Out No longe r eligible based on patient's age to complete this topic Rotavirus Vaccines Aged Out No longer eligible based on patient's age to complete this topic Procedures Procedure Name Priority Date/Time Associated Diagnosis Comments PROPHYLAXIS - ADULT Routine 08/05/2024 1 :00 PM EDT BITEWING - SINGLE RADIOGRAPHIC IMAGE Routine 05/01/2024 11:00 AM EDT Full coverage crown needed for tooth at risk for fracture PERIODIC ORAL EVALUATION - ESTABLISHED PATIENT Routine 04/23/2023 10:00 AM EDT from Last 3 Months or Most Recently Relevant to Health Maintenance Insurance [facility] MEDICAID STAND ADULT
--- OUTSIDE RECORDS SUMMARY | 2025-02-15 13:16 | XMS_ITS | Encounter Summary ---
Author Organization [employer] [facility] Address [address] [place] [address] Care Team Providers Care Clinical Services Manager Name Role Phone Unavailable Primary Care Provider Unavailabl e Encounter Details Date Type Department Care Team (Latest Contact Info) Description 06/02/2019 Abstract [facility] CONVERSIONS Dental, Provider, DDS Social History Tobacco Use Types Packs/Day Years Used Date Smoking Tobacco: Never Assessed Comments Unknown Sex and Gender Information Value Date Recorded Sex Assigned at Female 09/17/2022 10:18 AM EDT Legal Sex Female 10:18 AM EDT Gender Identity Female 09/17/2022 10:18 AM EDT Sexual Orientation Straight 09/17/2022 10 :18 AM EDT documented as of this encounter Plan of Treatment Not on file documented as of this encounter Visit Diagnoses Not on filedocumented in this encounter
== END 2025-02-15 11:34 | disposition home or self-care (01) ==
LOC: HO.HMGCX 11:33
PROVIDERS: PCP Nurse Practitioner Family; Visit Provider Nurse Practitioner Family
DX: M25.561 Pain in right knee (principal)
CPT/HCPCS: 73560

== ENCOUNTER → 2025-02-15 11:37 | Outpatient (BNV) | payer MEDICARE, MEDICAID, SELFPAY | PROVIDERS: PCP Nurse Practitioner Family; Visit Provider Radiology Diagnostic Radiology | DX: M25.561 Pain in right knee (principal) | CPT/HCPCS: 73560 ==

== ENCOUNTER 2025-03-04 16:10 | Emergency (ER) | payer MEDICARE, MEDICAID, SELFPAY ==
--- NOTE | 2025-03-04 16:24 | ED_ITS ---
HPI - General Adult General Chief complaint: General Medical Stated complaint: rectal pain Time Seen by Provider: 03/04/25 18:14 Source: patient Limitations: no limitations History of Present Illness ED Provider: Regla Esposito PA-C HPI narrative: 49-year-old female presents with painful hemorrhoid x1 week. Patient states she was seen by primary care, she was given suppositories and creams, however her symptoms are not alleviated. Related Data Home Medications ?Medication ?Instructions ?Recorded ?Confirmed hydroxyzine HCl 50 mg tablet 50 mg PO BID 07/04/21 09/30/24 acetaminophen 500 mg tablet 500 mg PO Q6H PRN HEADACHES 02/22/22 09/30/24 calcium carbonate 500 mg PO BID PRN Acid Reflux 02/22/22 09/30/24 Previous Rx's ?Medication ?Instructions ?Recorded sumatriptan succinate 50 mg tablet 50 mg PO Q2-4H PRN migraine 08/16/21 headache 30 days #14 tabs albuterol sulfate 90 mcg/actuation 1 inh inhalation QID PRN shortness 02/26/23 aerosol inhaler (Ventolin HFA) of breath or wheezing #8.5 grams ibuprofen 600 mg tablet 600 mg PO Q8H PRN pain 30 days #90 04/14/24 tabs gabapentin 300 mg capsule 300 mg PO DAILY 30 days #30 caps 08/17/24 lorazepam 1 mg tablet 1 mg PO ONCE PRN anxiety/MRI 1 day 09/08/24 #2 tabs buspirone 10 mg tablet 10 mg PO BID 30 days #60 tabs 10/14/24 hydrocortisone 2.5 % topical cream 1 appl SC BID-QID PRN hemorrhoids 03/01/25 with perineal applicator #30 grams Allergies Allergy/AdvReac Type Severity Reaction Status Date / Time hydrocodone [HYDROCODONE] Allergy Unknown SEVERE Verified 03/04/25 16:31 HEADACHE oxycodone [OXYCODONE] Allergy Unknown SEVERE Verified 03/04/25 16:31 HEADACHE latex [LATEX] AdvReac Mild RASH Verified 03/04/25 16:31 morphine [MORPHINE] AdvReac Unknown HEADACHES Verified 03/04/25 16:31 Review of Systems Review of Systems: Yes all other systems are reviewed and are negative Constitutional: Constitutional: Denies fatigue and Denies fever(s) Gastrointestinal: Gastrointestinal: Denies abdominal pain, Denies constipation, Denies diarrhea, Denies nausea and Denies vomiting Endocrine: Endocrine: Denies fatigue PMF Past Medical History Attestation statement: The following information was validated with the patient. Medical History Iliotibial band syndrome affecting left lower leg Lumbago Anxiety and depression Endometriosis Cervical neck pain with evidence of disc disease Left fibular fracture Left tibial fracture Right ovarian cyst Constipation Migraines Asthma Surgical History Hx of tubal ligation Hx of tubal ligation History of oophorectomy, unilateral History of eye surgery History of surgery History of fracture of leg History of bunionectomy History of section Hx of cholecystectomy History of tendonitis Family History Family History Father No problems noted. Mother No problems noted. Brother No problems noted. Brother No problems noted. Sister No problems noted. Maternal Grandfather No problems noted. Maternal Grandmother No problems noted. Paternal Grandfather No problems noted. Paternal Grandmother No problems noted. Daughter No problems noted. Son No problems noted. Paternal Aunt Breast cancer Maternal Aunt Lung cancer Social History Social History Housing: House Alcohol intake: never Patient Tobacco Use Status: Never used Tobacco e-Cigarette/Vaping Use: Never Used Second Hand Smoke Exposure: No Advance Directives: No Advance Directives Information Provided: No service: No Current occupational status: unemployed and disabled Cognitive needs: No Hearing needs: No Vision needs: No Physical Exam ED Vital Signs: Vital Signs - 24 hr 03/04/25 16:28 03/04/25 18:16 Temperature 97.2 F 97.8 F Pulse Rate 94 88 Respiratory Rate 16 20 Blood Pressure 117/76 120/78 Pulse Oximetry 98 98 Oxygen Delivery Method Room Air Room Air BMI result Body Mass Index 28.3 Const Other: Alert well-appearing Orientation/consciousness: patient oriented x3 Resp Effort & Inspection: normal respiratory effort Cardio Other: Normal peripheral perfusion GI Other: External Thrombosed hemorrhoid noted Skin Other: Warm dry no rash Neuro General: patient oriented x3, gait normal, no focal motor deficits and CN's II- XI intact bilaterally Psych Other: Cooperative Course Course Course Narrative: This is a rapid medical exam performed by Ana Tovar NP: Additional HPI, ROS, PE not included below will be deferred to primary provider. Patient is a 49-year-old female with history of hemorrhoids, GERD presenting to the emergency department with complaint of rectal pain since last Saturday. Reports known hemorrhoid, was size of a grape at once point. Tried Tucks, preparation H, hydrocortisone, baths all without relief. Area not visualized in triage due to privacy concerns. Has had to lay down for past 4 days as pain too severe with standing/walking. Minor bleeding since last night. Plan: will need visualization by primary provider Medications Administered Discontinued Medications Generic Name Dose Route Start Last Admin Trade Name Freq PRN Reason Stop Dose Admin Lidocaine/Epinephrine/Tetracaine 3 ml 03/04/25 18:44 03/04/25 19:06 Lidocaine/Racepinep/Tetracaine 3 Ml Gel.Pf.Rosanna TOPICAL 03/04/25 18:45 Not Given ONCE ONE Procedures Abscess I/D Site: ethan-rectal and other (Thrombosed hemorrhoid) Local Anesthetic: lidocaine 1% and with epi Amount of anesthesia used (mL): 1 Technique: incised with blade Amount of fluid expressed (mL): 0.25 Sent for culture/gram staining?: No Irrigation: No Packing used?: none Medical Decision Making Medical Decision Making MDM Narrative: 49-year-old female presents with painful hemorrhoid x1 week. Patient states she was seen by primary care, she was given suppositories and creams, however her symptoms are not alleviated. No chronic issues History: Per patient I have considered the following differential diagnoses: Hemorrhoid, thrombosed hemorrhoid, perirectal abscess, anal warts Plan: Patient has a thrombosed hemorrhoid, I lanced it, She has medications at home. She can continue to follow up with the primary care provider. Discharge Plan Discharge Clinical Impression: External hemorrhoid, thrombosed Patient Disposition: Home, Self-Care Instructions: Hemorrhoids (ED) Additional Instructions: A clot was removed from the hemorrhoid. You can continue to use the medication you have at home to help alleviate the residual tissue swelling and inflammation. Follow up with your primary care provider as needed. Prescriptions: No Action sumatriptan succinate 50 mg tablet 50 mg PO Q2-4H PRN (Reason: migraine headache) 30 Days Qty: 14 8RF Rx Instructions: do not exceed 4 doses per 24 hrs ibuprofen 600 mg tablet 600 mg PO Q8H PRN (Reason: pain) 30 Days Qty: 90 2RF lorazepam 1 mg tablet 1 mg PO ONCE PRN (Reason: anxiety/MRI) 1 Days Qty: 2 0RF Rx Instructions: please take one tab 1 hr before procedure. May repeat x1 tab if first tab does not work. CANNOT DRIVE WHILE ON MEDICATION buspirone 10 mg tablet 10 mg PO BID 30 Days Qty: 60 1RF hydrocortisone 2.5 % cream with perineal applicator 1 appl SC BID-QID PRN (Reason: hemorrhoids) Qty: 30 0RF acetaminophen 500 mg Tablet 500 mg PO Q6H PRN (Reason: HEADACHES) calcium carbonate 500 mg calcium (1,250 mg) Tablet,Chewable 500 mg PO BID PRN (Reason: Acid Reflux) hydroxyzine HCl 50 mg tablet 50 mg PO BID albuterol sulfate [Ventolin HFA] 90 mcg/actuation HFA aerosol inhaler 1 inh inhalation QID PRN (Reason: shortness of breath or wheezing) Qty: 8.5 1RF gabapentin 300 mg capsule 300 mg PO DAILY 30 Days Qty: 30 2RF Print Language: Kyrgyz
[2025-03-04 16:28] VITALS: BP 117/76; PULSE 94; RESP 16; TEMP 36.2; O2SAT 98; BMI 28.3
[2025-03-04 18:16] VITALS: BP 120/78; PULSE 88; RESP 20; TEMP 36.6; O2SAT 98
--- OUTSIDE RECORDS SUMMARY | 2025-03-04 18:29 | XMS_ITS | Encounter Summary ---
Author Organization [employer] Address [address] [facility] [address] [place] [address] Care Team Providers Care Spreader Name Role Phone Unavailable Primary Care Provider Unavailabl e Reason for Visit * Reason Onset Date Comments final fee for appt 05/25/2024 Encounter Details Date Type Department Care Team (Late st Contact Info) Description 05/25/2024 Telephone [facility] [address] [place], [place] [phone] Ashleigh Cochran, DDS [address], [place] [phone] final fee for appt Social History Tobacco [...]
--- OUTSIDE RECORDS SUMMARY | 2025-03-04 18:29 | XMS_ITS | Clinical Summary ---
Author Organization [employer] [facility] Address [address] [place] [address] [address] [place] [address] Care Team Providers Care Retail Receiving Clerk Name Role Phone Unavailable Primary Care Provider [...] Most Recently Relevant to Health Maintenance Insurance [facility] MEDICAID STAND ADULT
--- OUTSIDE RECORDS SUMMARY | 2025-03-04 18:29 | XMS_ITS | Encounter Summary ---
Author Organization [employer] [facility] Address [address] [facility] [address] [place] [address] Care Team Providers Care Air Brake Tester Name Role Phone Unavailable Primary Care Provider [...]
[2025-03-04 19:26] VITALS: BP 120/78; PULSE 88; RESP 20; TEMP 36.6; O2SAT 98
[2025-03-04] MEDS: Lidocaine HCl 1%/Epi 1:100,000 10 ML VIAL INFILTRATI (19:28)
== END 2025-03-04 19:27 | disposition home or self-care (01) ==
PROVIDERS: Emergency Provider Emergency Medicine; PCP Nurse Practitioner Family
DX: K64.5 Perianal venous thrombosis (principal); K62.89 Other specified diseases of anus and rectum
CPT/HCPCS: 46083; 99282; 99284; J2004

== ENCOUNTER 2025-03-09 13:47 | Outpatient (AMB) | payer MEDICARE, MEDICAID, SELFPAY ==
--- NOTE | 2025-03-09 13:52 | A.OFFVIS_ITS ---
Vital Signs 03/09/25 13:55 Height 5 ft 5 in Weight 169 lb 12.095 oz BMI 28.2 BP 105/67 Blood Pressure Location Lt brachial Position Sitting Pulse 81 Intake Visit Reasons: External hemorrhoid, thrombosed Intake Note: Mansi presents in the office as a new patient for external hemorrhoid. CC: She states that the blood clot was removed and there was a needle placed in the ED to numb it. She states that the medicine she takes - it is uncomfortable and itchy and she is not sure why she still has it. General Repair Mechanic Required: No Allergies hydrocodone [HYDROCODONE] Allergy (Unknown, Verified 03/09/25 13:55) SEVERE HEADACHE oxycodone [OXYCODONE] Allergy (Unknown, Verified 03/09/25 13:55) SEVERE HEADACHE latex [LATEX] Adverse Reaction (Mild, Verified 03/09/25 13:55) RASH morphine [MORPHINE] Adverse Reaction (Unknown, Verified 03/09/25 13:55) HEADACHES Medication List - Last Reconciled 03/09/25 by Skinny Qureshi MD acetaminophen 500 mg PO Q6H PRN buspirone 10 mg PO BID 30 days diclofenac sodium 75 mg PO BID gabapentin 300 mg PO DAILY 30 days hydrocortisone 2.5% 1 appl [place] BID-QID PRN ibuprofen 600 mg PO Q8H PRN 30 days lorazepam 1 mg PO ONCE PRN 1 day medroxyprogesterone mg IM sumatriptan succinate 50 mg PO Q2-4H PRN 30 days HPI HPI External hemorrhoid, thrombosed: Details: 49 year female referred for a thrombosed hemorrhoid. She says that starting about 2 weeks ago she had been noticing some swelling of her hemorrhoids with discomfort and pain. She says that this became severe last week so she went to the emergency room. She was told she had a thrombosed hemorrhoid and this was drained then. She says that she has felt better since that time She says she did not have hemorrhoid issues prior to this. He denies problems with constipation. [facility] Medical History Iliotibial band syndrome affecting left lower leg Lumbago Anxiety and depression Endometriosis Cervical neck pain with evidence of disc disease Left fibular fracture Left tibial fracture Right ovarian cyst Constipation Migraines Asthma Surgical History Hx of tubal ligation Hx of tubal ligation History of oophorectomy, unilateral History of eye surgery History of surgery History of fracture of leg History of bunionectomy History of section Hx of cholecystectomy History of tendonitis Family History Father No problems noted. Mother No problems noted. Brother No problems noted. Brother No problems noted. Sister No problems noted. Maternal Grandfather No problems noted. Maternal Grandmother No problems noted. Paternal Grandfather No problems noted. Paternal Grandmother No problems noted. Daughter No problems noted. Son No problems noted. Paternal Aunt Breast cancer Maternal Aunt Lung cancer Social History Housing: House Alcohol intake: never Patient Tobacco Use Status: Never used Tobacco e-Cigarette/Vaping Use: Never Used Second Hand Smoke Exposure: No service: No Current occupational status: unemployed and disabled Cognitive needs: No Hearing needs: No Vision needs: No Review of Systems Const Denies chills and Denies fever(s) Card Denies chest pain, Denies dyspnea and Denies dyspnea on exertion Resp Denies cough, Denies dyspnea and Denies dyspnea on exertion GI Denies hematochezia and Denies change in bowel habits Denies hematuria Musc Denies back pain and Denies limited range of motion Neuro Denies focal weakness and Denies convulsions Psych Denies depression and Denies mood swings Physical Exam Vital Signs: Last Vital Signs Pulse 81 03/09/25 13:55 BP 105/67 03/09/25 13:55 BMI result Body Mass Index 28.2 Const General: comfortable and no acute distress Orientation/consciousness: patient oriented x3 Neck Neck: Yes no lymphadenopathy Resp Auscultation: clear to auscultation bilaterally Cardio Rhythm: regular rhythm GI Other: Rectal exam shows external hemorrhoids, non bulky, currently without any thrombosis or swelling or edema, no open wound Palpation (GI): Soft to palpation, nontender and no guarding Neuro General: patient oriented x3 Assessment & Plan Assessment & Plan (1) External hemorrhoid, thrombosed: Code(s): K64.5 - Perianal venous thrombosis Category: Medical Plan: She had undergone I and D of a thrombosed external hemorrhoid last week in the emergency room The site appears to be healing well. There was no residual edema or thrombus. There was no inflammation The hemorrhoid itself is non bulky. I therefore explained to her that we may not need to do any hemorrhoidectomy urgently at this time. I told her that we can proceed with hemorrhoidectomy if she has recurrent problems down the line with this hemorrhoid. I briefly explained to her the technique of this procedure as well as the risks, benefits, and alternatives She understands and says she will call me on a p.r.n. basis. Coding Level of Care Code New Pt Level 3 (25620) Diagnoses External hemorrhoid, thrombosed K64.5
[2025-03-09 13:55] VITALS: BP 105/67; PULSE 81; BMI 28.2
--- OUTSIDE RECORDS SUMMARY | 2025-03-09 16:28 | XMS_ITS | Encounter Summary ---
Author Organization [employer] [facility] Address [address] [facility] 7t [place] [address] Care Team Providers Care Dental Treatment Coordinator Name Role Phone Unavailable Primary Care Provider [...]
--- OUTSIDE RECORDS SUMMARY | 2025-03-09 16:28 | XMS_ITS | Clinical Summary ---
Author Organization [employer] [facility] Address [address] [place] [address] 7[address] [place] [address] Care Team Providers Care Wood Caulker Name Role Phone Unavailable Primary Care Provider [...] Most Recently Relevant to Health Maintenance Insurance [facility] MEDICAID STAND ADULT
--- OUTSIDE RECORDS SUMMARY | 2025-03-09 16:28 | XMS_ITS | Encounter Summary ---
Author Organization [employer] Address [address] [facility] [address]t [place] [address] Care Team Providers Care Forest Worker Name Role Phone Unavailable Primary Care Provider Unavailabl e Reason for Visit * Reason Onset Date Comments final fee for appt 05/25/2024 Encounter Details Date Type Department Care Team (Late st Contact Info) Description 05/25/2024 Telephone [facility] [address], [place] [phone] Ashleigh Cochran, DDS [address], [place] [phone] final fee for appt Social History Tobacco [...]
== END 2025-03-09 14:05 | disposition home or self-care (01) ==
LOC: HO.HGS 13:48
PROVIDERS: PCP Nurse Practitioner Family; Visit Provider Surgery
DX: K64.5 Perianal venous thrombosis (principal)
CPT/HCPCS: 99203

== ENCOUNTER → 2025-03-09 13:47 | Outpatient (BNVA) | payer MEDICARE, MEDICAID, SELFPAY | PROVIDERS: PCP Nurse Practitioner Family; Visit Provider Surgery | DX: K64.5 Perianal venous thrombosis (principal) | CPT/HCPCS: 99202 ==

== ENCOUNTER 2025-05-11 10:10 | Outpatient (AMB) | payer MEDICARE, MEDICAID, SELFPAY ==
--- NOTE | 2025-05-11 10:11 | A.OFFPC_ITS ---
Vital Signs 05/11/25 10:16 Height 5 ft 5 in Weight 176 lb BMI 29.3 BP 112/80 Blood Pressure Location Lt brachial Position Sitting Respiration 16 Pulse 99 Pulse Source Pulse Oximeter Temp 98.3 F Temp Source Oral Pulse Oximetry (%) 97 Oxygen Delivery Method Room Air Intake Visit Reasons: Headache on her back neck Intake Note: Pt is here today c/o headaches on her back of neck Allergies hydrocodone (HYDROCODONE) Allergy (Unknown, Verified 05/11/25 10:50) SEVERE HEADACHE oxycodone (OXYCODONE) Allergy (Unknown, Verified 05/11/25 10:50) SEVERE HEADACHE latex (LATEX) Adverse Reaction (Mild, Verified 05/11/25 10:50) RASH morphine (MORPHINE) Adverse Reaction (Unknown, Verified 05/11/25 10:50) HEADACHES Medication List - Last Reconciled 05/11/25 by HAROON Sevilla-LORETA acetaminophen 500 mg PO Q6H PRN gabapentin 300 mg PO DAILY 30 days ibuprofen 600 mg PO Q8H PRN 30 days lorazepam 1 mg PO ONCE PRN 1 day medroxyprogesterone mg IM sumatriptan succinate 50 mg PO Q2-4H PRN 30 days Tobacco use date assessed: 05/11/25 Dental Screening Dental Screen Date: 05/11/25 Did you have a dental visit in the last 12 months?: Yes Did you have a dental problem in the last 6 months where you did not have access to dental care?: Yes Was dental information given to patient?: Patient has dentist HPI Headache on her back neck HPI Details Chief Complaint The patient presents for follow-up regarding anxiety management. History of Present Illness The patient is a 50-year-old female presenting with anxiety management. She reports doing quite well overall, despite experiencing some stress related to financial constraints. She has been encouraged to increase her outdoor activities, especially with the favorable weather, to help manage her anxiety. The patient has a history of a severe left lower extremity fracture, which required extensive surgeries. She is currently managing well, although a handicap placard is being filled out for her use on days when mobility is more challenging. Rehabilitation exercises, including stretching, have been recommended to maintain mobility and function. Social History - Financially strapped but managing - Owns chickens at home Health Maintenance - Encouraged to be more active outdoors - Recommended stretching and rehabilitat ion exercises Review of Systems - Psychiatric: Reports anxiety, denies s uicidal ideation or homicidal thoughts Physical Exam General: Cooperative, healthy appearing, comfortable, no acute distress and well developed Orientation: Patient oriented x3 Limitations: No limitations Head: Normal to inspection Ears: Hearing grossly normal bilaterally Nose: Normal external nose present Face and sinus: Normal facial exam Eyes: Appearance normal, both eyes and all related structures Neck: Normal visual inspection and Yes full ROM Respiratory: Normal respiratory effort and able to speak in complete sentences. Clear to auscultation bilaterally Cardiovascular: Regular rate and rhythm. Normal S1 and S2 GI: Normal to inspection. Soft to palpation and nontender Skin: No rashes or lesions noted Neuro: Patient oriented x3 Results Plan The patient will continue with her current management for anxiety, as she reports doing well overall. She is encouraged to increase her outdoor activities and engage in stretching exercises to support her mental health and physical mobility. A handicap placard will be provided for use on days when her mobility is compromised due to her history of left lower extremity fracture. Discussion Notes I discussed with the patient the importance of maintaining her current management plan for anxiety, which appears to be effective. We talked about the benefits of outdoor activities and stretching exercises to enhance her physical and mental well-being. I also informed her about the provision of a handicap placard for days when her mobility is affected by her previous leg injury. Patient Instructions - Continue current anxiety management pl an - Increase outdoor activities and engage in stretching exercises - Use the handicap placard on days when mobility is challenging [facility] Medical History Iliotibial band syndrome affecting left lower leg Lumbago Anxiety and depression Endometriosis Cervical neck pain with evidence of disc disease Left fibular fracture Left tibial fracture Right ovarian cyst Constipation Migraines Asthma Surgical History Hx of tubal ligation Hx of tubal ligation History of oophorectomy, unilateral History of eye surgery History of surgery History of fracture of leg History of bunionectomy History of section Hx of cholecystectomy History of tendonitis Family History Father No problems noted. Mother No problems noted. Brother No problems noted. Brother No problems noted. Sister No problems noted. Maternal Grandfather No problems noted. Maternal Grandmother No problems noted. Paternal Grandfather No problems noted. Paternal Grandmother No problems noted. Daughter No problems noted. Son No problems noted. Paternal Aunt Breast cancer Maternal Aunt Lung cancer Social History Housing: House Alcohol intake: never Patient Tobacco Use Status: Never used Tobacco e-Cigarette/Vaping Use: Never Used Second Hand Smoke Exposure: No service: No Current occupational status: unemployed and disabled Cognitive needs: No Hearing needs: No Vision needs: No Questionnaire PHQ-9 Over the last 2 weeks, how often have you been bothered by any of the following problems? 1. Little interest or pleasure in doing things: not at all 2. Feeling down, depressed, or hopeless: not at all 3. Trouble falling or staying asleep, or sleeping too much: not at all 4. Feeling tired or having little energy: not at all 5. Poor appetite or overeating: not at all 6. Feeling bad about yourself - or that you are a failure or have let yourself or your family down: not at all 7. Trouble concentrating on things, such as reading the newspaper or watching television: not at all 8. Moving or speaking so slowly that other people could have noticed. Or the opposite - being so fidgety or restless that you have been moving around a lot more than usual: not at all 9. Thoughts that you would be better off or of hurting yourself in some way: not at all Total score: 0 Depression Screening Interpretation: Negative Depression Screening Done: Yes 36269 - PHQ-9 Billing: Yes Source: Developed by Drs. Sagar Tavarez, Melissa Menard, Danilo Ceja and colleagues, with an educational jannette from [email or web address]. Thrive Questionnaire Date Thrive assessed: 05/11/25 I am a: Patient SHERRY-7 AMB Questionnaire SHERRY-7 Date SHERRY - 7 assessed: 12/05/23 Source: Developed by Melissa Vera, Danilo Ceja and colleagues, with an educational jannette from [email or web address]. Physical exam (Primary Care) Vital Signs: Last Vital Signs Temp 98.3 F 05/11/25 10:16 Pulse 99 05/11/25 10:16 Resp 16 05/11/25 10:16 BP 112/80 05/11/25 10:16 Pulse Ox 97 05/11/25 10:16 Oxygen Delivery Method Room Air 05/11/25 10:16 BMI result Body Mass Index 29.3 Tobacco/Smoking Status: Tobacco use Status Tobacco use date assessed 05/11/25 05/11/25 10:12 Patient Tobacco Use Status Never used Tobacco 05/11/25 10:12 e-Cigarette/Vaping Use Never Used 05/11/25 10:12 PHQ-9: PHQ-9 Score PHQ-9: Total score 0 05/11/25 10:14 Depression Screening Interpretation: Negative Thrive Assessment: Date of Thrive Assessment Date Thrive assessed 05/11/25 05/11/25 10:12 Coding Level of Care Code Est Pt Level 3 (69301) Diagnoses Anxiety F41.9 Additional Codes PHQ-9 - 08187 - PHQ-9 Billing: Yes ([id number]) Assessment & Plan Assessment & Plan (1) Anxiety: Code(s): F41.9 - Anxiety disorder, unspecified Category: Medical Plan . Orders: Orders MM screening mammo BI Today Z12.31 - Encounter for screening mammogram for malignant neoplasm of breast
[2025-05-11 10:16] VITALS: BP 112/80; PULSE 99; RESP 16; TEMP 36.8; O2SAT 97; BMI 29.3
--- OUTSIDE RECORDS SUMMARY | 2025-05-11 11:16 | XMS_ITS | Encounter Summary ---
Author Organization [employer] Address [address] [facility] [address] [place] [address] Care Team Providers Care Accounting Policy Consultant Name Role Phone Unavailable Primary Care Provider Unavailabl e Reason for Visit * Reason Onset Date Comments final fee for appt 05/25/2024 Encounter Details Date Type Department Care Team (Late st Contact Info) Description 05/25/2024 Telephone [facility] ADULT DENTAL [address] [place], [place] [phone] Ashleigh Cochran DDS [address] [place], [place] [phone] final fee for appt Social History Tobacco [...] documented in this encounter Plan of Treatment Upcoming Encounters Date Type Department Care Team (Late st Contact Info) Description 07/05/2025 1:00 PM EDT Office Visit [facility] [address] [place], [place] [phone] Augustin Bui BDS [address] [place], [place] [phone] documented as of this encounter Visit Diagnoses Not on filedocumented in this encounter
== END 2025-05-11 11:45 | disposition home or self-care (01) ==
PROVIDERS: PCP Nurse Practitioner Family; Visit Provider Nurse Practitioner Family
DX: F41.9 Anxiety disorder, unspecified (principal)

== ENCOUNTER → 2025-05-11 10:10 | Outpatient (BNVA) | payer MEDICARE, MEDICAID, SELFPAY | PROVIDERS: PCP Nurse Practitioner Family; Visit Provider Nurse Practitioner Family | DX: F41.9 Anxiety disorder, unspecified (principal) | CPT/HCPCS: 96127; 99212 ==

== ENCOUNTER 2025-07-13 13:35 | Outpatient (REF) | payer MEDICARE, MEDICAID, SELFPAY ==
--- NOTE | ~2025-07-13 | XR_ITS ---
EXAMINATION: XR CERVICAL SPINE CLINICAL INFORMATION: M54.12 RADICULOPATHY COMPARISON: October 27, 2019. TECHNIQUE: AP oblique and lateral views FINDINGS: Craniocervical junction is intact. Small marginal osteophyte formation C5-6 and to a lesser extent C6-7. Mild reverse curvature apex at C5-6. No gross neuroforamina stenosis. No acute cortical disruption or gross malalignment. No lytic or blastic lesions. Upper airway is patent XR/XR cervical spine 4V IMPRESSION: Spondylosis, C5-6 and C6-7 resulting in mild reverse curvature at C5-6. Electronically signed by: Kirit Watson MD 07/13/2025 02:05 PM EDT
--- OUTSIDE RECORDS SUMMARY | 2025-07-13 14:35 | XMS_ITS | Clinical Summary ---
Author Organization [employer] [facility] Address [address] [place] [address] 7t [place] [address] Care Team Providers Care Director Of Partnerships Name Role Phone Unavailable Primary Care Provider [...] Sign Reading Time Taken Comments Blood Pressure 116/60 04/06/2025 11:33 AM EDT Pulse 82 08/05/2024 1:10 PM EDT [...] Screening 1975 SDOH Screening 1975 Sigmoidoscopy 1975 Disability Screening 1975 Alcohol/Substance Use Screening 1987 Family Planning (PISQ) 1990 Hepatitis C Screening 1993 Hepatitis B Vaccines (1 of 3 - 19+ 3-dose series) 1994 Pap Smear 1996 Cervical Cancer Screening 2005 HPV/Cotest 2005 Mammogram 2015 Dental Oral Exam 10/24/2023 04/23/2023 COVID-19 Vaccine (1 - 2023-2 5 season) 2024 Dental Prophylaxis 02/03/2025 08/05/2024, 01/16/2024 Dental X-Ray: Bitewings 05/02/2025 05/01/20 24, 04/23/2023 Pneumococcal Vaccine: 50+ Years (1 of 1 - PCV) 2025 Zoster Vaccines (1 of 2) 2025 Influenza Vaccine (#1) 2025 Tobacco Screening 04/06/2026 04/06/2025 DTaP/Tdap/Td Vaccines (2 - T d or [...] patient's age to complete this topic Meningococcal B Vaccine Aged Out No l onger eligible based on patient's age to complete [...] Most Recently Relevant to Health Maintenance Insurance [facility] MEDICAID STAND ADULT
--- OUTSIDE RECORDS SUMMARY | 2025-07-13 14:35 | XMS_ITS | Encounter Summary ---
Author Organization [employer] Address [address] [facility] 7t [place] [address] Care Team Providers Care Housekeeper Supervisor Name Role Phone Unavailable Primary Care Provider Unavailabl e Reason for Visit * Reason Onset Date Comments final fee for appt 05/25/2024 Encounter Details Date Type Department Care Team (Late st Contact Info) Description 05/25/2024 Telephone [facility] [address] [place], [place] [phone] Ashleigh Cochran, DDS [address] [place], [place] [phone] final fee for appt Social History Tobacco [...]
--- OUTSIDE RECORDS SUMMARY | 2025-07-13 14:35 | XMS_ITS | Encounter Summary ---
Author Organization [employer] [facility] Address [address] [facility] 7t [place] [address] Care Team Providers Care Rayon Tester Name Role Phone Unavailable Primary Care Provider Unavailabl e Encounter Details Date Type Department Care Team (Latest Contact Info) Description 06/02/2019 Abstract C CONVERSIONS Dental, Provider, DDS Social History Tobacco [...]
== END 2025-07-13 13:36 | disposition home or self-care (01) ==
LOC: HO.HMGCX 13:35
PROVIDERS: PCP Nurse Practitioner Family; Visit Provider Student in an Organized Health Care Education/Training Program
DX: M54.12 Radiculopathy, cervical region (principal)
CPT/HCPCS: 72050

== ENCOUNTER → 2025-07-13 13:43 | Outpatient (BNV) | payer MEDICARE, MEDICAID, SELFPAY | PROVIDERS: PCP Nurse Practitioner Family; Visit Provider Radiology Diagnostic Radiology | DX: M47.812 Spondylosis without myelopathy or radiculopathy, cervical region (principal) | CPT/HCPCS: 72050 ==

== ENCOUNTER 2025-07-29 07:59 | Outpatient (AMB) | payer MEDICARE, MEDICAID, SELFPAY ==
--- OUTSIDE RECORDS SUMMARY | 2023-11-20 15:50 | XMS_ITS | Encounter Summary ---
Author Organization [facility] Address [address] [place] [phone] Phone Care Team Providers Care Coal Chute Worker Name Role Phone Ameya Enamorado CONSTRUCTION EQUIPMENT MECHANIC HELPER Primary Care Provider + Encounter Details Date Type Department Care Team (Late st Contact Info) Description 11/20/2023 2:50 PM EST Hospital Encounter [facility] [address] [place] [address] Mera Buck CNP [address] [place] [id number] [email or web address] Social History Tobacco Use Types Packs/Day Years Used Date Smoking Tobacco: Never Assessed Education Answer Date Recorded Are you interested in more education? Not on venkata e 03/15/2023 Are you concerned about learning? Not on file 03/15/2023 No 03/15/2023 No 03/15/2023 Digital Access Answer Date Recorded No 04/15/2023 No 04/15/2023 No 04/15/2023 Reliable internet access at home? Not on file 04/15/2023 Device with a working camera? Not on file Comments Unknown Sex and Gender Information Value Date Recorded Sex Assigned at Not on file Legal Sex Female 9:29 PM EDT Gender Identity Not on file Sexual Orientation Not on file documented as of this encounter Plan of Treatment Not on file documented as of this encounter Procedures Procedure Name Priority Date/Time Associated Diagnosis Comments XR CHEST PA AND LATERAL 2 VIEWS Urgent/patient waiting 11/20/2023 2:58 PM EST Cough documented in this encounter Results * XR CHEST PA AND LATERAL 2 VIEWS (11/20/2023 2:58 PM EST) Anatomical Region Laterality Modality Chest Computed Radiogr aphy 11/20/2023 2:59 PM EST Impressions 11/20/2023 3:00 PM EST No pneumonia or acute cardiopulmonary process. Narrative 11/20/2023 3:00 PM EST XR CHEST PA AND LATERAL 2 VIEWS Referring clinician's provided indication for this examination in Epic: Cough; pain behind right shoulder blade & sternum COMPARISON: None. FINDINGS: Devices/Tubes/Lines: None. Lungs: No focal consolidation or pulmonary edema. Pleura: No pleural effusion or pneumothorax. Heart/Mediastinum: Normal cardiac silhouette. Normal mediastinal contours. Bones/Soft Tissues: No acute osseous abnormality. Mild S-shaped curvature of the thoracolumbar spine. Surgical clips in the right upper quadrant of the abdomen. Procedure Note Zach Ramirez MD - 11/20/2023 XR CHEST PA AND LATERAL 2 VIEWS Referring clinician's provided indication for this examination in Epic:Cough; pain behind right shoulder blade & sternum COMPARISON: None. FINDINGS: Devices/Tubes/Lines: None. Lungs: No focal consolidation or pulmonary edema. Pleura: No pleural effusion or pneumothorax. Heart/Mediastinum: Normal cardiac silhouette. Normal mediastinalcontours. Bones/Soft Tissues: No acute osseous abnormality. Mild S-shaped curvatureof the thoracolumbar spine. Surgical clips in the right upper quadrant ofthe abdomen. IMPRESSION: No pneumonia or acute cardiopulmonary process. Mera Buck CAFETERIA SERVER IMG XR CHEST Final Resul t documented in this encounter Visit Diagnoses Not on filedocumented in this encounter Additional Health Concerns Infection Onset Date Last Indicated Resolved Time CoV-Risk 11/20/2023 11/20/2023 12/01/2023 1:24 AM EST documented as of this encounter Care Teams Coal Chute Worker Relationship Specialty Start Date End Date Ameya Enamorado NP [facility] [place] [address] PCP - General Family Medicine 09/01/19 documented as of this encounter Additional Source Comments The information contained in this document represents components of the legal health record. It is not the complete legal health record.[facility]
[2025-07-29 08:01] VITALS: BP 112/64; PULSE 96; RESP 16; TEMP 36.6; O2SAT 97; BMI 29.6
--- NOTE | 2025-07-29 08:01 | A.OFFPC_ITS ---
Vital Signs 07/29/25 08:01 Height 5 ft 5 in Weight 178 lb BMI 29.6 BP 112/64 Blood Pressure Location Lt brachial Position Sitting Respiration 16 Pulse 96 Pulse Source Pulse Oximeter Temp 97.9 F Temp Source Oral Pulse Oximetry (%) 97 Oxygen Delivery Method Room Air Intake Visit Reasons: Annual PE - see comments Linen Supply Load Builder Required: No Accompanied by: Self / Same As Patient Allergies hydrocodone (HYDROCODONE) Allergy (Unknown, Verified 07/29/25 08:04) SEVERE HEADACHE oxycodone (OXYCODONE) Allergy (Unknown, Verified 07/29/25 08:04) SEVERE HEADACHE latex (LATEX) Adverse Reaction (Mild, Verified 07/29/25 08:04) RASH morphine (MORPHINE) Adverse Reaction (Unknown, Verified 07/29/25 08:04) HEADACHES Medication List - Last Reconciled 07/29/25 by HAROON Sevilla- acetaminophen 500 mg PO Q6H PRN gabapentin 300 mg PO DAILY 30 days ibuprofen 600 mg PO Q8H PRN 30 days lidocaine 5% 1 patch topical DAILY lorazepam 1 mg PO ONCE PRN 1 day medroxyprogesterone mg IM sumatriptan succinate 50 mg PO Q2-4H PRN 30 days Tobacco use date assessed: 07/29/25 Dental Screening Dental Screen Date: 07/29/25 Did you have a dental visit in the last 12 months?: Yes Did you have a dental problem in the last 6 months where you did not have access to dental care?: No Was dental information given to patient?: Patient has dentist HPI Annual PE - see comments HPI Details History of Present Illness The patient is a 50-year-old female presenting for a physical exam and preventative care measures. She is due for a mammogram, and the order has already been placed. 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 Her colon cancer screening is up to date, and she denies any chest pain, shortness of breath, abdominal pain, constipation, or diarrhea. She also denies any suicidal or homicidal ideation. Socially, she is a new grandmother and expresses excitement and happiness about this new role. Health Maintenance - Mammogram: Order placed, patient to ca hedule - Pap smear: Patient to contact [facility] for scheduling - Colon cancer screening: Up to date Social History - Family status: New grandmother, expres ses excitement and happiness Review of Systems - Cardiovascular: Denies chest pain - Respiratory: Denies dyspnea - Gastrointestinal: Denies abdominal shane n, constipation, diarrhea - Psychiatric: Denies suicidal ideation, denies homicidal ideation Physical Exam General: Cooperative, healthy appearing, comfortable, no acute distress and well developed Orientation: Patient oriented x3 Limitations: No limitations Head: Normal to inspection Ears: Hearing grossly normal bilaterally Nose: Normal external nose present Face and sinus: Normal facial exam Eyes: Appearance normal, both eyes and all related structures Neck: Normal visual inspection and Yes full ROM Respiratory: Normal respiratory effort and able to speak in complete sentences. Clear to auscultation bilaterally Cardiovascular: Regular rate and rhythm. Normal S1 and S2 GI: Normal to inspection. Soft to palpation and nontender Skin: No rashes or lesions noted Neuro: Patient oriented x3 Extremities: Normal to inspection Results [facility] Medical History Iliotibial band syndrome affecting left lower leg Lumbago Anxiety and depression Endometriosis Cervical neck pain with evidence of disc disease Left fibular fracture Left tibial fracture Right ovarian cyst Constipation Migraines Asthma Surgical History Hx of tubal ligation Hx of tubal ligation History of oophorectomy, unilateral History of eye surgery History of surgery History of fracture of leg History of bunionectomy History of section Hx of cholecystectomy History of tendonitis Family History Father No problems noted. Mother No problems noted. Brother No problems noted. Brother No problems noted. Sister No problems noted. Maternal Grandfather No problems noted. Maternal Grandmother No problems noted. Paternal Grandfather No problems noted. Paternal Grandmother No problems noted. Daughter No problems noted. Son No problems noted. Paternal Aunt Breast cancer Maternal Aunt Lung cancer Social History Housing: House Alcohol intake: never Patient Tobacco Use Status: Never used Tobacco e-Cigarette/Vaping Use: Never Used Second Hand Smoke Exposure: No service: No Current occupational status: unemployed and disabled Cognitive needs: No Hearing needs: No Vision needs: No Questionnaire Thrive Questionnaire Date Thrive assessed: 05/11/25 What is your living situation today?: I have a steady place to live Within the past 12 months, did the food you bought not last and you didn't have the money to get more?: Never true Within the past 12 months, did you worry whether your food would run out before you got money to buy more?: Never true Do you have trouble paying for medicines?: No Do you have trouble getting transportation to medical appointments?: No Do you have trouble paying your heating and electricity bill?: No Do you have trouble taking care of your child, family member or friend?: No Do you have trouble with day-to-day activities such as bathing, preparing meals, shopping, managing finances, etc.?: No Are you currently unemployed and looking for a job?: No Are you interested in more education?: No Please select the resources that you would like help with: None Currently or been in a relationship where the following occur: I choose not to answer THRIVE Score: 0 AUDIT C Alcohol Use Questionnaire (AUDIT-C) 1. How often do you have a drink containing alcohol?: Never Total Score: 0 SHERRY-7 AMB Questionnaire SHERRY-7 Date SHERRY - 7 assessed: 12/05/23 Feeling nervous, anxious, or on edge: 1 = Several days Not being able to stop or control worryin = Nearly every day Worrying too much about different things: 3 = Nearly every day Trouble relaxin = More than half the days Being so restless that it is hard to sit still: 2 = More than half the days Becoming easily annoyed or irritable: 1 = Several days Feeling afraid as if something awful might happen: 0 = Not at all Total SHERRY-7 score (0-4 normal; 5-9 mild; 10-14 moderate; 15-21 severe): 12 Source: Developed by Drs. Sagar Tavarez, Melissa Menard, Danilo Ceja and colleagues, with an educational jannette from [employer] SHERRY-7 Assessment Billing SHERRY-7 Assessment Tool: SHERRY-7 Assessment 71416 (declines therapist currently) Physical exam (Primary Care) Vital Signs: Last Vital Signs Temp 97.9 F 07/29/25 08:01 Pulse 96 09/11/25 08:01 Resp 16 07/29/25 08:01 BP 112/64 07/29/25 08:01 Pulse Ox 97 07/29/25 08:01 Oxygen Delivery Method Room Air 07/29/25 08:01 BMI result Body Mass Index 29.6 Tobacco/Smoking Status: Tobacco use Status Tobacco use date assessed 07/29/25 07/29/25 08:07 Patient Tobacco Use Status Never used Tobacco 07/29/25 08:07 e-Cigarette/Vaping Use Never Used 07/29/25 08:07 Thrive Assessment: Date of Thrive Assessment Date Thrive assessed 05/11/25 07/29/25 08:07 Currently or been in a relationship where the following occur: I choose not to answer Coding Level of Care Code Est Pt Prev Care 40-64y(03244) Diagnoses Physical exam Z00.00 Vitamin D deficiency E55.9 Additional Codes SHERRY-7 Assessment Billing - SHERRY-7 Assessment Tool: SHERRY-7 Assessment 79043 ([id number]) Assessment & Plan Assessment & Plan (1) Physical exam: Code(s): Z00.00 - Encounter for general adult medical examination without abnormal findings Category: Medical (2) Vitamin D deficiency: Code(s): E55.9 - Vitamin D deficiency, unspecified Category: Medical Plan . Orders: Orders Lipid Panel Today Z00.00 - Encounter for general adult medical examination without abnormal findings Vitamin D 25-OH Total Today E55.9 - Vitamin D deficiency, unspecified Complete Blood Count Auto Diff Today Z00.00 - Encounter for general adult medical examination without abnormal findings Comprehensive [place]. Panel Fast Today Z00.00 - Encounter for general adult medical examination without abnormal findings TSH reflex Free T4 Today Z00.00 - Encounter for general adult medical examination without abnormal findings UA CC w/rflx Micro + Cult Today Z00.00 - Encounter for general adult medical examination without abnormal findings Medications: Changed From gabapentin 300 mg PO DAILY 30 days 30 caps 2RF To gabapentin 300 mg PO TID 90 caps 2RF 30 days
--- OUTSIDE RECORDS SUMMARY | 2025-07-29 08:03 | XMS_ITS | Encounter Summary ---
Author Organization [employer] [facility] Address [address] [facility] 7t [place] [address] Care Team Providers Care Slot Key Person Name Role Phone Unavailable Primary Care Provider [...]
--- OUTSIDE RECORDS SUMMARY | 2025-07-29 08:03 | XMS_ITS | Clinical Summary ---
Author Organization [facility] Address [address] [place] [phone] Phone Care Team Providers Care Poultry Hatchery Manager Name Role Phone Ameya Enamorado WAREHOUSE RECEIVER Primary Care Provider + Allergies Active Allergy Reactions Criticality Noted Date Comments Latex 09/01/2019 Oxycodone 09/01/2019 Adhesive 09/01/2019 Medications albuterol 90 mcg/actuation inhaler INHALE 1 PUFF 4 TIMES A DAY NEEDED FOR SHORTNESS OF BREATH OR WHEEZING 03/25/20 23 Active gabapentin (NEURONTIN) 100 MG capsule Take 100 mg by mouth. 04/06/20 23 Active ibuprofen (ADVIL,MOTRIN) 800 MG tablet Take 800 mg by mouth every 8 (eight) hours as needed. 11/13/20 23 Active medroxyPROGEST ERone (DEPO-PROVERA) 150 mg/mL Syrg IM injection syringe INJECT 1 MILLILITER INTRAMUSCULARLY EVERY 3 MONTHS 08/21/20 23 Active metroNIDAZOLE (METROCREAM) 0.75 % cream APPLY TO THE FACE ONCE TO TWICE DAILY. 01/24/20 23 Active Active Problems Problem Noted Date Diagnosed Date Light headed 05/14/2011 Immunizations No known immunizations Social History Tobacco Use Types Packs/Day Years [...] on file Sexual Orientation Not on file Last Filed Vital Signs Vital Sign Reading Time Taken Comments Blood Pressure 110/79 12/22/2023 12:34 PM EST Pulse 70 12/22/2023 12:34 PM EST Temperature 36.5 C (97.7 F) 12/22/2023 12:34 PM EST Respiratory Rate 17 12/22/2023 12:34 PM EST Oxygen Saturation 99% 12/22/2023 12:34 PM EST Inhaled Oxygen Concentration - - Weight 68.9 kg (152 lb) 09/01/2019 1:56 PM EDT Height 165.1 cm (5' 5 ) 09/01/2019 1:56 PM EDT Body Mass Index 25.29 09/01/2019 1:56 PM EDT Plan of Treatment Health Maintenance Due Date Last Done Comments Adult Td,Tdap Booster 1975 LIPID PANEL 1975 DEPRESSION SCREENING 1987 SMOKING Hx and SMOKELESS TOB ACCO SCREENING 1988 HEPATITIS C SCREENING 1993 HIV ONE-TIME SCREENING (18-6 5 YEARS) 1993 PAP SMEAR 1996 MAMMOGRAM 2015 COLOGUARD 2020 COLONOSCOPY 2020 COLORECTAL CANCER SCREENING 2020 FIT TEST 2020 FOBT 2020 SIGMOIDOSCOPY 2020 VIRTUAL COLONOSCOPY 2020 PNEUMOCOCCAL VACCINES (50+ y ears) (1 of 1 - PCV) 2025 ZOSTER VACCINES (1 of 2) 2025 INFLUENZA VACCINE (#1) 2025 COVID-19 VACCINE ( - 2023-2 5 season) 2025 HEPATITIS A VACCINES Aged Out No long er eligible based on patient's age to complete this topic HIB VACCINES Aged Out No longer eligi ble based on patient's age to complete this topic MENINGOCOCCAL VACCINES (ACWY) Aged Out No longer eligible based on patient's age to complete this topic MENINGOCOCCAL VACCINES (B) Aged Out N o longer eligible based on patient's age to complete this topic Medical Devices Not on file Insurance [facility] CAREPLUS TOGETHER [facility] MEDICARE PART A & B [facility] CAREPLUS [place] [facility] A & B [facility] Member Subscriber Plan / Payer (Ef fective 2017-Present) Name:Dylan Rick Relation to Subscriber:Self Name:DYLAN CHOU Payer ID:[id number] (NAIC) Group ID:Not on file Type:Medicaid Address: [address] MEDICARE PART A & [facility] [place], [place] [address]HEALTH CAREPLUS TOGETHER Member Subscriber Plan / Payer (Ef fective 2017-Present) Name:Dylan Rick Relation to Subscriber:Self Name:DYLAN CHOU Payer ID:[id number] (NAIC) Group ID:Not on file Type:Medicaid Address: [address] MEDICARE PART A & B [facility] CAREPLUS TOGETHER HEALTH MEDICARE PART A & B [facility] A & B [employer] Care Teams Poultry Hatchery Manager Relationship Specialty Start Date End Date Ameya Enamorado NP [address] [place] [address] PCP - General Family Medicine 09/01/19 Additional Source Comments The information contained in this document represents components of the legal health record. It is not the complete legal health record.[facility]
--- OUTSIDE RECORDS SUMMARY | 2025-07-29 08:03 | XMS_ITS | Clinical Summary ---
Author Organization [employer] [facility] Address [address] [place] [address] [address] [place] [address] Care Team Providers Care Furnace Operator Name Role Phone Unavailable Primary Care Provider [...] Mammogram 2015 Dental Oral Exam 10/24/2023 04/23/2023 Dental Prophylaxis 02/03/2025 08/05/2024, 01/16/2024 Dental X-Ray: Bitewings 05/02/2025 05/01/20 24, 04/23/2023 Pneumococcal Vaccine: 50+ Years (1 of 1 - PCV) 2025 Zoster Vaccines (1 of 2) 2025 COVID-19 Vaccine (1 - 2023-2 5 season) 2025 Influenza Vaccine (#1) 2025 Tobacco Screening [...] Most Recently Relevant to Health Maintenance Insurance [facility] MEDICAID STAND ADULT
--- OUTSIDE RECORDS SUMMARY | 2025-07-29 08:03 | XMS_ITS | Encounter Summary ---
Author Organization [employer] Address [address] [facility] [address] [place] [address] Care Team Providers Care President & Founder Name Role Phone Unavailable Primary Care Provider Unavailabl e Reason for Visit * Reason Onset Date Comments final fee for appt 05/25/2024 Encounter Details Date Type Department Care Team (Late st Contact Info) Description 05/25/2024 Telephone [facility] ADULT DENTAL [address] [place], [place] [phone] Ashleigh Cochran, DDS [address], [place] [phone] final fee for appt Social History Tobacco [...]
== END 2025-07-29 10:35 | disposition home or self-care (01) ==
LOC: HO.HMCC 08:00
PROVIDERS: PCP Nurse Practitioner Family; Visit Provider Nurse Practitioner Family
DX: Z00.00 Encounter for general adult medical examination without abnormal findings (principal); E55.9 Vitamin D deficiency, unspecified

== ENCOUNTER → 2025-07-29 07:59 | Outpatient (BNVA) | payer MEDICARE, MEDICAID, SELFPAY | PROVIDERS: PCP Nurse Practitioner Family; Visit Provider Nurse Practitioner Family | DX: Z00.00 Encounter for general adult medical examination without abnormal findings (principal); E55.9 Vitamin D deficiency, unspecified | CPT/HCPCS: 96127; 99396 ==